=== PATIENT | female | born 1950 | race Caucasian/White ===

== ENCOUNTER 2017-08-16 12:51 | Outpatient (CLI) | payer MEDICARE, MEDICAID | END 2017-08-16 12:52 | disposition critical access hospital (66) | LOC: EMS 12:51 | PROVIDERS: ATTEND Surgery | DX: R06.02 Shortness of breath (principal); R53.1 Weakness | CPT/HCPCS: A0425; A0429 ==

== ENCOUNTER 2017-08-16 13:22 | Inpatient (IN) | payer MEDICARE, MEDICAID ==
[2017-08-16] MEDS ORDERED: DEXAMETHASONE 10 MG/ML VIAL IVP STA (13:54)
[2017-08-16] MEDS ORDERED: IPRATROPIUM/ALBUTEROL 3 ML NEB INH STA (13:54)
--- NOTE | 2017-08-16 13:58 | ED Physician Documentation ---
PD HPI DYSPNEA - Stated complaint Stated Complaint: SOA - Chief complaint Chief Complaint: Resp - History obtained from History obtained from: Patient, EMS - History of Present Illness Timing - onset: How many weeks ago (2-3) Timing - onset during: Rest Timing - duration: Weeks (2-3) Timing - details: Gradual onset, Still present Inciting event(s): URI, Exposure (ie smoke). No: Immobilization/travel Improved by: O2 Worsened by: Exertion, Laying flat, Coughing Associated symptoms: Cough, Wheezing Similar symptoms before: Diagnosis (SARS) Recently seen: Not recently seen - Additional information Additional information: 66-year-old previously well female has developed shortness of breath over the past 2-3 weeks. She states that she always has had some shortness of breath since her episode of stars in 2002. At that time she was sent home from the hospital on oxygen and has not seen a doctor since. Review of Systems Constitutional: denies: Fever Eyes: denies: Decreased vision Ears: denies: Ear pain Nose: denies: Rhinorrhea / runny nose, Congestion Throat: denies: Sore throat Cardiac: denies: Chest pain / pressure, Palpitations Respiratory: reports: Dyspnea, Cough GI: denies: Abdominal Pain, Nausea, Vomiting : denies: Dysuria, Frequency Skin: denies: Rash Musculoskeletal: denies: Neck pain PD PAST MEDICAL HISTORY - Past Medical History Past Medical History: Yes Respiratory: COPD, Pneumonia, Shortness of breath Neuro: Migraines, Tremors GI: Chronic diarrhea Psych: Anxiety, ADD/ADHD, Post traumatic stress disorder Other Past Medical History: neuromuscular disorder - Present Medications Home Medications: Ambulatory Orders Medication Instructions Recorded Confirmed No Known Home Medications [No 08/16/17 08/16/17 Known Home Medications] - Allergies Allergies/Adverse Reactions: Allergies Allergy/AdvReac Type Severity Reaction Status Date / Time Penicillins Allergy Unknown Verified 08/16/17 13:31 - Social History Does the pt smoke?: Yes Smoking Status: Current every day smoker PD ED PE NORMAL - Vitals Vital signs reviewed: Yes (tachypneic, hypertensive and hypoxic) - General General: Alert and oriented X 3, No acute distress, Well developed/nourished - HEENT HEENT: Atraumatic, PERRL, EOMI, Other (There is cerumen bilaterally ) - Neck Neck: Supple, no meningeal sign, No bony TTP - Cardiac Cardiac: RRR, No murmur - Respiratory Respiratory: No respiratory distress, Other (diminished breath sounds and scattered wheezes and rhonchi) - Abdomen Abdomen: Soft, Non tender - Back Back: No CVA TTP, No spinal TTP - Derm Derm: Normal color, Warm and dry, No rash - Extremities Extremities: No deformity, No edema - Neuro Neuro: No motor deficit, No sensory deficit Eye Opening: Spontaneous Motor: Obeys Commands Verbal: Oriented GCS Score: 15 - Psych Psych: Normal mood, Normal affect Results - Vitals Vitals: Vital Signs - 24 hr 08/16/17 08/16/17 13:24 14:10 Temperature 35.9 C L Heart Rate 91 88 Respiratory 26 H 21 Rate Blood Pressure 142/79 H O2 Saturation 85 L Oxygen O2 Source Nasal cannula Oxygen Flow Rate 6 - EKG (time done) 1328 Rate: Rate (enter#) (91) Rhythm: LAE Colo: LAD QRS: Poor R wave progression Ischemia: Normal ST segments Compare to prior EKG: Old EKG unavailable Computer interpretation: Agree with computer - Labs Labs: Laboratory Tests 08/16/17 08/16/17 08/16/17 13:56 13:56 13:56 WBC 17.0 H RBC 5.57 H Hgb 16.5 H Hct 49.9 H MCV 89.7 MCH 29.6 MCHC 33.0 RDW 14.1 Plt Count 331 MPV 7.4 L Neut # 14.9 H Lymph # 1.1 L Garfield # 0.9 Eos # 0.0 Baso # 0.1 Absolute Nucleated RBC 0.00 Nucleated RBC % 0.0 D-Dimer Sodium 135 Potassium 4.0 Chloride 97 L Carbon Dioxide 30 Anion Gap 8.0 BUN 20 Creatinine 1.0 Estimated GFR (MDRD) 55 L Glucose 119 H Calcium 8.5 Total Bilirubin 0.6 AST 19 ALT 16 Alkaline Phosphatase 105 Troponin I < 0.04 Total Protein 7.2 Albumin 3.5 Globulin 3.7 Albumin/Globulin Ratio 0.9 L Lipase 22 08/16/17 13:58 WBC RBC Hgb Hct MCV MCH MCHC RDW Plt Count MPV Neut # Lymph # Garfield # Eos # Baso # Absolute Nucleated RBC Nucleated RBC % D-Dimer 219.7 Sodium Potassium Chloride Carbon Dioxide Anion Gap BUN Creatinine Estimated GFR (MDRD) Glucose Calcium Total Bilirubin AST ALT Alkaline Phosphatase Troponin I Total Protein Albumin Globulin Albumin/Globulin Ratio Lipase - Rads (name of study) 2 veiw chest Radiology: Prelim report reviewed (Impression: Small right pleural effusion and adjoining lung opacification, may reflect atelectasis, edema, or pneumoina. ), EMP read indepedently, See rad report Procedures - IVC sono (time) 1350 Bedside IVC sono: IVC measures (cm) (2.34), IVC collapsed c insp (cm) (complete) , Dehydration (mild) PD MEDICAL DECISION MAKING - ED course Complexity details: reviewed results, re-evaluated patient, considered differential, d/w patient ED course: 66-year-old female with progressive exertional dyspnea presented to her physician's office today with oxygen saturation in the 70% range. She is transferred to the hospital with oxygen running and on arrival to the emergency department has diminished breath sounds and has some improvement with the DuoNeb treatment. She is found to have a right lower lobe infiltrate on chest x -ray. Departure - Departure Disposition: 66 [facility] DC/Xfer Clinical Impression: Pneumonia Qualifiers: Pneumonia type: due to unspecified organism Laterality: right Lung location: lower lobe of lung Qualified Code(s): J18.1 - Lobar pneumonia, unspecified organism Condition: Stable
[2017-08-16 14:00] LABS: BASOPHILS # (AUTO) 0.1 10^3/uL (0.0-0.1); BASOPHILS % (AUTO) 0.8 %; EOSINOPHILS % (AUTO) 0.1 %; HGB - HEMOGLOBIN 16.5 g/dL (12.0-16.0); LYMPHOCYTES # (AUTO) 1.1 10^3/uL (1.5-3.5); LYMPHOCYTES % (AUTO) 6.3 %; MEAN CORPUSCULAR HEMOGLOBIN 29.6 pg (27.0-31.0); MEAN CORPUSCULAR VOLUME 89.7 fL (81.0-99.0); MEAN PLATELET VOLUME 7.4 fL (7.9-10.8); MONOCYTES # (AUTO) 0.9 10^3/uL (0.0-1.0); MONOCYTES % (AUTO) 5.1 %; NEUTROPHILS # (AUTO) 14.9 10^3/uL (1.5-6.6); NEUTROPHILS % (AUTO) 87.7 %; PLT - PLATELET COUNT 331 10^3/uL (130-450); RED BLOOD COUNT 5.57 10^6/uL (4.20-5.40); RED CELL DISTRIBUTION WIDTH 14.1 % (12.0-15.0)
[2017-08-16 14:13] LABS: ALBUMIN 3.5 g/dL (3.2-5.5); ALBUMIN/GLOBULIN RATIO 0.9 (1.0-2.2); BILIRUBIN,TOTAL 0.6 mg/dL (0.2-1.0); CALCIUM 8.5 mg/dL (8.5-10.3); TOTAL PROTEIN 7.2 g/dL (6.7-8.2)
[2017-08-16] MEDS ORDERED: MAGNESIUM SULFATE 2 GRAM 2 GM/50 ML BAG IV ONE (14:26)
--- NOTE | 2017-08-16 15:38 | XRAY Preliminary Report ---
Exam: XR CHEST 2 VIEW X-RAY IMPRESSION: Small right pleural effusion and adjoining lung opacification, may reflect atelectasis, edema, or pne umonia. [facility] SITE ID: [id number]
--- NOTE | 2017-08-16 15:38 | XRAY Report ---
EXAM: CHEST RADIOGRAPHY EXAM DATE: 08/16/2017 02:57 PM. CLINICAL HISTORY: SOA. COMPARISON: None. TECHNIQUE: 2 views. FINDINGS: Lungs/Pleura: Dense opacification in the right lower lung with likely adjoining small pleural effusio n. No pneumothorax. Mediastinum: Heart and mediastinal contours are unremarkable. Other: None. IMPRESSION: Small right pleural effusion and adjoining lung opacification, may reflect atelectasis, edema, or pne umonia. [facility] Referring Provider Line: [phone] SITE ID: [id number]
[2017-08-16] MEDS ORDERED: cefTRIAXone 1 GM in SODIUM CHLORIDE 0.9% MINIBAG 100 ML IV STA (15:41)
[2017-08-16] MEDS ORDERED: AZITHROMYCIN INJ 500 MG in SODIUM CHLORIDE 0.9% 250 ML IV STA (15:41)
[2017-08-16] MEDS ORDERED: ALBUTEROL NEB 2.5 MG/3 ML INH STA (15:42)
[2017-08-16] MEDS ORDERED: TEMAZEPAM 15 MG CAPSULE PO PRN (18:03)
[2017-08-16] MEDS ORDERED: PROCHLORPERAZINE 10 MG/2 ML VIAL IVP PRN (18:03)
[2017-08-16] MEDS: BUTALB/ACETAM/CAFF 50/325/40MG TABLET PO PRN (20:33)
[2017-08-16] MEDS: IPRATROPIUM/ALBUTEROL 3 ML NEB INH PRN (20:54)
[2017-08-16] MEDS: methylPREDNISolone SUCCINATE 40 MG/ML VIAL IVP SCH (21:07)
[2017-08-16] MEDS: SODIUM CHLORIDE FLUSH 0.9% 10 ML SYRINGE IVP PRN (21:07)
[2017-08-16] MEDS ORDERED: LORazepam 2 MG/ML VIAL IVP PRN (23:34)
--- NOTE | 2017-08-17 00:45 | HISTORY & PHYSICAL EXAMINATION ---
DATE OF SERVICE: 08/16/2017 Physician: Shae Bustamante MD HISTORY OF PRESENT ILLNESS: This is a 66-year-old white female with a history of migraines, SARS treated in 2002 for which she required home oxygen and inhalers for a period of time and then was tapered off everything, and a history of PTSD and adult ADD for which she was on Adderall, which was also discontinued approximately 4-5 years ago. The patient is on no home medications. The patient reports that she was exposed to a friend 2 weeks ago who had a productive cough and since that time developed slowly progressive cough, shortness of breath, PND and orthopnea. No fever, chest pain, leg edema, palpitations or chest pain. She presented to her primary care doctor today with complaints of shortness of breath and was found to have oxygen saturations on room air of 70% and sent to the emergency room. In the ER, she was found to have significant tachypnea and wheezing and a right lower lobe infiltrate on chest x-ray and is being admitted for community-acquired pneumonia and respiratory distress. PAST MEDICAL HISTORY 1. Migraines. 2. SARS in 2002. 3. PTSD/adult ADD. MEDICATIONS AT HOME: None. ALLERGIES: PENICILLIN. FAMILY HISTORY: No inherited diseases. SOCIAL HISTORY: Smoker of 1/2-3/4 pack a day, rare alcohol use. No illicit drug use. The patient does state that her significant other, whom she lives with, smokes marijuana, and there is a lot of both tobacco smoke and marijuana smoke in the house. REVIEW OF SYSTEMS: She describes having a headache currently which is like the old migraines that she used to have. A comprehensive review of systems was performed and the pertinent positives are above, all other in review is negative. PHYSICAL EXAMINATION GENERAL: Obese white female. She is in mild respiratory distress during speaking. VITAL SIGNS: Blood pressure 141/90, heart rate 90 in sinus rhythm, afebrile. Oxygen saturation 88% on 6 L nasal cannula, improved to 92% later in the day on 5 L nasal cannula. HEENT: Reveals cyanosis of her lips, and she is wearing oxygen nasal cannula. Her oral mucosa is moist. NECK: No JVD or carotid bruits. CHEST: Clear, with a prolonged expiratory phase. No wheezes or rhonchi. HEART: Sounds are normal, distant. No audible murmur. ABDOMEN: Obese with positive bowel sounds. Nontender. EXTREMITIES: Show no clubbing, cyanosis or edema. NEUROLOGIC: Intact. LABORATORY DATA: Normal electrolytes, normal BUN and creatinine, normal liver tests. Troponin not detectable. BNP 167. White blood count 17 with a left shift, hemoglobin 16.5, platelet count normal at 331. INR was not done. D-dimer is negative at 219. CHEST X-RAY: Small right pleural effusion and right base opacification. ELECTROCARDIOGRAM: Sinus rhythm, left atrial enlargement, left anterior fascicular block, poor R-wave progression, no ST or T-wave changes. There is no old EKG available for comparison. IMPRESSION/DIAGNOSES 1. Community-acquired pneumonia, right lower lobe. 2. Respiratory distress with hypoxia and wheezing. 3. History of severe acute respiratory syndrome requiring supplemental oxygen and inhalers over 10 years ago. 4. Migraines. 5. Posttraumatic stress disorder history and adult attention deficit hyperactivity disorder, previously on Adderall but none for 4-5 years. PLAN: Admit the patient to inpatient status. Obtain a sputum culture and blood culture. Begin empiric antibiotics for community-acquired pneumonia using Zithromax and Rocephin. Begin nebulizers and steroids. Treat her headache with pain medication of her choice (Fiorinal). Obtain an Echocardiogram to evaluate LV and RV contractility and rule out systolic LV heart failure given the mildly elevated BNP and the complaints of orthopnea. Monitor the BNP. Recheck a CXR in am. DEEP VENOUS THROMBOSIS PROPHYLAXIS: Lovenox. CODE STATUS: FULL CODE. ATTESTATION: The patient is expected to be discharged or transferred to another facility within 96 hours: Yes. TD: 08/16/2017 19:50 [facility]
[2017-08-17] MEDS: SODIUM CHLORIDE FLUSH 0.9% 10 ML SYRINGE IVP SCH ×3 (01:23→15:37)
[2017-08-17] MEDS: BUTALB/ACETAM/CAFF 50/325/40MG TABLET PO PRN ×4 (02:18→13:53)
[2017-08-17] MEDS: SODIUM CHLORIDE FLUSH 0.9% 10 ML SYRINGE IVP PRN (06:13)
[2017-08-17 06:14] LABS: CALCIUM 8.4 mg/dL (8.5-10.3); CREATININE 0.8 mg/dL (0.4-1.0)
[2017-08-17] MEDS: methylPREDNISolone SUCCINATE 40 MG/ML VIAL IVP SCH ×3 (06:14→21:20)
[2017-08-17 06:20] LABS: BASOPHILS # (AUTO) 0.1 10^3/uL (0.0-0.1); BASOPHILS % (AUTO) 0.4 %; HGB - HEMOGLOBIN 15.4 g/dL (12.0-16.0); LYMPHOCYTES # (AUTO) 0.9 10^3/uL (1.5-3.5); LYMPHOCYTES % (AUTO) 5.7 %; MEAN CORPUSCULAR HEMOGLOBIN 29.2 pg (27.0-31.0); MEAN CORPUSCULAR HGB CONC 32.1 g/dL (32.0-36.0); MEAN CORPUSCULAR VOLUME 90.9 fL (81.0-99.0); MEAN PLATELET VOLUME 7.7 fL (7.9-10.8); MONOCYTES # (AUTO) 0.4 10^3/uL (0.0-1.0); MONOCYTES % (AUTO) 2.6 %; NEUTROPHILS # (AUTO) 15.1 10^3/uL (1.5-6.6); NEUTROPHILS % (AUTO) 91.3 %; PLT - PLATELET COUNT 338 10^3/uL (130-450); RED BLOOD COUNT 5.29 10^6/uL (4.20-5.40); RED CELL DISTRIBUTION WIDTH 14.5 % (12.0-15.0); WHITE BLOOD COUNT 16.5 x10^3/uL (4.8-10.8)
--- NOTE | 2017-08-17 07:11 | XRAY Report ---
EXAM: CHEST RADIOGRAPHY EXAM DATE: 08/17/2017 06:27 AM. CLINICAL HISTORY: F/U pneumonia. COMPARISON: 08/16/2017. TECHNIQUE: 1 view. FINDINGS: Lungs/Pleura: Mild vascular congestion. Progression of right lung airspace opacities. Dense right bas ilar opacity without significant change. There is a right pleural effusion. No pneumothorax. Mediastinum: Cardiomegaly. Mild aortic tortuosity. Other: None. IMPRESSION: 1. Progression of vascular congestion 2. Progression of right lung airspace opacities with dense right basilar opacity without significant change. [facility] Referring Provider Line: [phone] SITE ID: [id number]
--- NOTE | 2017-08-17 07:11 | XRAY Preliminary Report ---
Exam: XR CHEST 1 VIEW X-RAY IMPRESSION: 1. Progression of vascular congestion 2. Progression of right lung airspace opacities with dense right basilar opacity without significant change. [facility] SITE ID: [id number]
[2017-08-17] MEDS: ACETAMINOPHEN 325 MG TABLET PO PRN (09:07)
[2017-08-17] MEDS: ENOXAPARIN 40 MG/0.4 ML SYRINGE SUBQ SCH (09:08)
[2017-08-17] MEDS: FAMOTIDINE 20 MG TABLET PO SCH (09:08)
[2017-08-17] MEDS: POLYETHYLENE GLYCOL 3350 17 GM PACKET PO SCH (09:09)
[2017-08-17] MEDS: FUROSEMIDE 20 MG/2 ML VIAL IVP SCH ×2 (09:17→13:50)
[2017-08-17] MEDS: cefTRIAXone 1 GM in SODIUM CHLORIDE 0.9% MINIBAG 100 ML IV SCH (13:14)
[2017-08-17] MEDS: AZITHROMYCIN INJ 500 MG in SODIUM CHLORIDE 0.9% 250 ML IV SCH (13:50)
--- NOTE | 2017-08-17 15:55 | PROVIDER PROGRESS NOTE ---
Assessment/Plan - Problem List (1) CAP (community acquired pneumonia) Qualifiers: Laterality: right Lung location: lower lobe of lung Qualified Code(s): J18.1 - Lobar pneumonia, unspecified organism Assessment/Plan: No sputum was collected yet. Blood cultures neg to date. Continue empiric antibiotics for CAP. (2) Tobacco use Assessment/Plan: Pt not asking for a cigarette and not on a nicotine patch. She has said that she can smoke as little as 3 cigs/day. Continue to offer support and smoking cessation advised by me. (3) COPD (chronic obstructive pulmonary disease) Assessment/Plan: Pt clinically looks like a COPDer (tripod breathing, increased AP diameter, had scattered wheezes at presentation and prolonged expiratory phase). The Echo shows signs of early R heart overload with mild RA and RV enlargement an mildly elevated PA pressure of 37 mmHg. Continue nebs and treat underlying pneumonia. (4) Orthopnea Assessment/Plan: Pt has R/O for FL. Her EKG is similar yo previous. BNP was elevated and today's CXR is read as more vascular congestion. The Echo shows normal LVEF, diastolic dysfunction is present. Will add iv diuretic. Monitor BMP and Mg. (5) PTSD (post-traumatic stress disorder) Assessment/Plan: The Pt voiced needing to be taken care of by Psychiatry, wanting meds for ADHD and PTSD and is planning on seeing someone locally after [facility]Ch. - Current Meds Current Meds: Current Medications Generic Name Dose Route Start Last Admin Trade Name Freq PRN Reason Stop Dose Admin Acetaminophen 650 mg 08/16/17 18:03 08/17/17 09:07 Tylenol PO 650 mg Q4HR PRN Administration Pain or Fever > 38C (100.4F) Acetaminophen/Butalbital/Caffeine 2 tab 08/17/17 13:09 08/17/17 13:53 Fioricet PO 2 tab Q4HR PRN Administration HEADACHE Albuterol/Ipratropium 3 ml 08/16/17 18:10 08/16/17 20:54 Duoneb INH 3 ml Q4HR PRN Administration Wheezing Enoxaparin Sodium 40 mg 08/17/17 09:00 08/17/17 09:08 Lovenox SUBQ 40 mg DAILY RONNY Administration Famotidine 20 mg 08/17/17 09:00 08/17/17 09:08 Pepcid PO 20 mg DAILY RONNY Administration Furosemide 20 mg 08/17/17 08:00 08/17/17 13:50 Lasix Inj 20mg Vial IVP 20 mg BIDDIURETIC RONNY Administration Azithromycin 500 mg/ Sodium 250 mls @ 250 mls/hr 08/17/17 13:00 08/17/17 15: 51 Chloride IV Infused Q24H RONNY Infusion Ceftriaxone Sodium 1 gm/ 100 mls @ 200 mls/hr 08/17/17 13:00 08/17/17 15:51 Sodium Chloride IV Infused Q24H RONNY Infusion Methylprednisolone 40 mg 08/16/17 22:00 08/17/17 13:50 Solu-Medrol (40mg Vial) IVP 08/19/17 21:59 40 mg TID RONNY Administration Polyethylene Glycol 17 gm 08/17/17 09:00 08/17/17 09:09 Miralax PO 17 gm DAILY RONNY Administration Sodium Chloride 10 ml 08/16/17 18:03 08/17/17 06:13 Normal Saline Flush 0.9% IVP 10 ml PRN PRN Administration NEEDED PER PROVIDER ORDERS Sodium Chloride 10 ml 08/17/17 01:00 08/17/17 15:37 Normal Saline Flush 0.9% IVP 10 ml 0100,0900,1700 RONNY Administration - Lab Result Fish Bone Diagrams: 08/17/17 05:27 08/17/17 05:27 - EKG Results EKG Interpreted Independently: Yes EKG Comparison: Other (LAFB absent now, otherwise same as yesterday's EKG.) - Additional Planning My Orders: My Active Orders 08/16/17 18:03 Activity Orders [RC] Routine IO [RC] IOSHIFT IV Insert [RC] .ONCE Initiate Bowel Care Protocol [RC] .protocol Initiate Flu Vaccine Screening [RC] ONCE Initiate Line Care Protocol [RC] .protocol Initiate Personal Care Protoco [RC] .protocol Initiate Pneumonia Vaccine Scr [RC] ONCE Oxygen Therapy [RC] .PRN Telemetry (24 Hour) [RC] Q4HR Vital Signs [RC] Q4HR Acetaminophen [Tylenol] 650 mg PO Q4HR PRN Morphine Inj [Morphine] 2 mg IVP Q2H PRN Prochlorperazine Inj [Compazine Inj] 10 mg IVP Q6HR PRN Sodium Chloride Flush 0.9% [Normal Saline Flush 0.9%] 10 ml IVP PRN PRN Temazepam [Restoril] 15 mg PO QPM PRN Code Status [OTHERS] Routine Condition of Patient [OTHERS] Routine DVT Prophylaxis [OTHERS] Routine 08/16/17 18:10 Ipratropium/Albuterol [Duoneb] 3 ml INH Q4HR PRN 08/16/17 18:34 RT [Nebulizer/MDI Tx.] [RC] .Q4 PRN 08/16/17 18:46 CULTURE, BLOOD #1 [RM] Stat 08/16/17 18:53 CULTURE, BLOOD #2 [RM] Stat 08/16/17 22:00 methylPREDNISolone SUCCINATE [SOLU-Medrol (40MG VIAL)] 40 mg IVP TID 08/17/17 01:00 Sodium Chloride Flush 0.9% [Normal Saline Flush 0.9%] 10 ml IVP 0100,0900, 1700 08/17/17 08:00 Echo Transthoracic Complete [ECHO] Routine FUROSEMIDE INJ 20mg VIAL [LASIX INJ 20mg VIAL] 20 mg IVP BIDDIURETIC 08/17/17 09:00 Enoxaparin [Lovenox] 40 mg SUBQ DAILY Famotidine [Pepcid] 20 mg PO DAILY Polyethylene Glycol 3350 [Miralax] 17 gm PO DAILY 08/17/17 13:00 Azithromycin Inj [Zithromax Inj] 500 mg Sodium Chloride 0.9% [Normal Saline 0.9%] 250 ml IV Q24H cefTRIAXone [Rocephin] 1 gm Sodium Chloride 0.9% Minibag [Normal Saline 0.9% Minibag] 100 ml IV Q24H 08/17/17 13:09 Butalb/Acetam/Caff 50/325/40 [Fioricet] 2 tab PO Q4HR PRN 08/17/17 Breakfast Regular Diet [DIET] 08/18/17 05:00 BMP - BASIC METABOLIC PANEL [CHEM] DAILYLAB CBC - COMP BLD CT W/AUTO DIFF [HEME] DAILYLAB 08/19/17 05:00 BMP - BASIC METABOLIC PANEL [CHEM] DAILYLAB CBC - COMP BLD CT W/AUTO DIFF [HEME] DAILYLAB Subjective - Subjective Patient Reports: Feeling Better Nursing Reports: Other (Less cough. Still on O2 my oximizer) Objective Vital Signs: Vital Signs - 24 hr 08/16/17 08/16/17 08/16/17 18:56 20:40 20:55 Temperature 36.6 C Heart Rate 90 Heart Rate [ 91 Apical] Heart Rate [ Brachial] Respiratory 22 12 Rate Blood Pressure [Left Radial artery] Blood Pressure 141/92 H [Right Brachial artery] O2 Saturation 92 87 L 08/16/17 08/17/17 08/17/17 22:25 00:46 04:36 Temperature 36.6 C 36.9 C Heart Rate Heart Rate [ 77 Apical] Heart Rate [ 88 Brachial] Respiratory 20 16 Rate Blood Pressure [Left Radial artery] Blood Pressure 144/80 H 130/84 H [Right Brachial artery] O2 Saturation 92 94 93 08/17/17 08/17/17 08:00 12:41 Temperature 36.8 C 36.9 C Heart Rate Heart Rate [ Apical] Heart Rate [ 77 80 Brachial] Respiratory 16 16 Rate Blood Pressure 127/64 122/79 [Left Radial artery] Blood Pressure [Right Brachial artery] O2 Saturation 94 94 Oxygen O2 Source Oxymizer I&O (Last 24 Hrs): Intake and Output Totals x24h 08/15/17 08/16/17 08/17/17 23:59 23:59 23:59 Intake Total 300 920 Balance 300 920 General: Alert, Oriented x3 HEENT: Mucous membr. moist/pink Neck: Supple, No JVD Cardiovascular: Regular rate, No murmurs Respiratory: No respiratory distress, Breath sounds nml Abdomen: Other (Obese with pannus) - Results Results: Laboratory Results WBC 16.5 x10^3/uL (4.8-10.8) H 08/17/17 05:27 RBC 5.29 10^6/uL (4.20-5.40) 08/17/17 05:27 Hgb 15.4 g/dL (12.0-16.0) 08/17/17 05:27 Hct 48.1 % (37.0-47.0) H 08/17/17 05:27 MCV 90.9 fL (81.0-99.0) 08/17/17 05:27 MCH 29.2 pg (27.0-31.0) 08/17/17 05:27 MCHC 32.1 g/dL (32.0-36.0) 08/17/17 05:27 RDW 14.5 % (12.0-15.0) 08/17/17 05:27 Plt Count 338 10^3/uL (130-450) 08/17/17 05:27 MPV 7.7 fL (7.9-10.8) L 08/17/17 05:27 Neut # 15.1 10^3/uL (1.5-6.6) H 08/17/17 05:27 Lymph # 0.9 10^3/uL (1.5-3.5) L 08/17/17 05:27 Rabun # 0.4 10^3/uL (0.0-1.0) 08/17/17 05:27 Eos # 0.0 10^3/uL (0.0-0.7) 08/17/17 05:27 Baso # 0.1 10^3/uL (0.0-0.1) 08/17/17 05:27 Absolute Nucleated RBC 0.02 x10^3/uL 08/17/17 05:27 Nucleated RBC % 0.1 /100WBC 08/17/17 05:27 D-Dimer 219.7 ng/mL (200.0-255.0) 08/16/17 13:58 Sodium 135 mmol/L (135-145) 08/17/17 05:27 Potassium 4.2 mmol/L (3.5-5.0) 08/17/17 05:27 Chloride 97 mmol/L (101-111) L 08/17/17 05:27 Carbon Dioxide 29 mmol/L (21-32) 08/17/17 05:27 Anion Gap 9.0 (6-13) 08/17/17 05:27 BUN 22 mg/dL (6-20) H 08/17/17 05:27 Creatinine 0.8 mg/dL (0.4-1.0) 08/17/17 05:27 Estimated GFR (MDRD) 72 (>89) L 08/17/17 05:27 Glucose 165 mg/dL (70-100) H 08/17/17 05:27 Calcium 8.4 mg/dL (8.5-10.3) L 08/17/17 05:27 Total Bilirubin 0.6 mg/dL (0.2-1.0) 08/16/17 13:56 AST 19 IU/L (10-42) 08/16/17 13:56 ALT 16 IU/L (10-60) 08/16/17 13:56 Alkaline Phosphatase 105 IU/L (42-121) 08/16/17 13:56 Troponin I < 0.04 ng/mL (<0.49) 08/16/17 20:09 B-Natriuretic Peptide 140 pg/mL (5-100) H 08/16/17 23:46 Total Protein 7.2 g/dL (6.7-8.2) 08/16/17 13:56 Albumin 3.5 g/dL (3.2-5.5) 08/16/17 13:56 Globulin 3.7 g/dL (2.1-4.2) 08/16/17 13:56 Albumin/Globulin Ratio 0.9 (1.0-2.2) L 08/16/17 13:56 Lipase 22 U/L (22-51) 08/16/17 13:56
[2017-08-18] MEDS: BUTALB/ACETAM/CAFF 50/325/40MG TABLET PO PRN ×3 (00:08→20:36)
[2017-08-18] MEDS: SODIUM CHLORIDE FLUSH 0.9% 10 ML SYRINGE IVP SCH ×3 (00:08→17:17)
[2017-08-18] MEDS: methylPREDNISolone SUCCINATE 40 MG/ML VIAL IVP SCH ×3 (05:40→22:46)
[2017-08-18] MEDS: FUROSEMIDE 20 MG/2 ML VIAL IVP SCH (05:40)
[2017-08-18] MEDS: SODIUM CHLORIDE FLUSH 0.9% 10 ML SYRINGE IVP PRN ×2 (05:41→22:46)
[2017-08-18 06:22] LABS: BASOPHILS % (AUTO) 0.3 %; HGB - HEMOGLOBIN 14.7 g/dL (12.0-16.0); LYMPHOCYTES % (AUTO) 5.5 %; MEAN CORPUSCULAR HEMOGLOBIN 28.6 pg (27.0-31.0); MEAN CORPUSCULAR HGB CONC 31.7 g/dL (32.0-36.0); MEAN CORPUSCULAR VOLUME 90.2 fL (81.0-99.0); MEAN PLATELET VOLUME 7.8 fL (7.9-10.8); MONOCYTES # (AUTO) 0.7 10^3/uL (0.0-1.0); NEUTROPHILS # (AUTO) 15.8 10^3/uL (1.5-6.6); NEUTROPHILS % (AUTO) 90.2 %; PLT - PLATELET COUNT 349 10^3/uL (130-450); RED BLOOD COUNT 5.15 10^6/uL (4.20-5.40); RED CELL DISTRIBUTION WIDTH 14.5 % (12.0-15.0); WHITE BLOOD COUNT 17.5 x10^3/uL (4.8-10.8)
[2017-08-18 06:23] LABS: CALCIUM 8.1 mg/dL (8.5-10.3); CREATININE 0.8 mg/dL (0.4-1.0)
[2017-08-18 07:56] LABS: ABG PCO2 46 mmHg (34-45); ABG PH 7.41 (7.35-7.45); ABG PO2 98 mmHg (80-100)
[2017-08-18 07:57] LABS: ABG BASE EXCESS 3.5 mmol/L (-2.0-3.0); ABG OXYGEN SATURATION 98 % (94-98); ABG TCO2 30.4 MMOL/L (21.0-29.0); ALLEN TEST POSITIVE
[2017-08-18] MEDS: IPRATROPIUM/ALBUTEROL 3 ML NEB INH PRN (09:24)
[2017-08-18] MEDS: POLYETHYLENE GLYCOL 3350 17 GM PACKET PO SCH (10:16)
[2017-08-18] MEDS: FAMOTIDINE 20 MG TABLET PO SCH (10:24)
[2017-08-18] MEDS: ENOXAPARIN 40 MG/0.4 ML SYRINGE SUBQ SCH (10:30)
--- NOTE | 2017-08-18 13:27 | PROVIDER PROGRESS NOTE ---
Assessment/Plan - Problem List (1) CAP (community acquired pneumonia) Qualifiers: Laterality: right Lung location: lower lobe of lung Qualified Code(s): J18.1 - Lobar pneumonia, unspecified organism Assessment/Plan: Continue empiric antibiotics Retry to send a sputum sample. Start Mucinex prn for pulmonary toilet. (2) Tobacco use Assessment/Plan: No urges while here. (3) COPD (chronic obstructive pulmonary disease) Qualifiers: COPD type: COPD with acute exacerbation Qualified Code(s): J44.1 - Chronic obstructive pulmonary disease with (acute) exacerbation Assessment/Plan: Pt getting nebulizer. Will add a course of steroids (5) PTSD (post-traumatic stress disorder) Assessment/Plan: Pt talks about this daily with me. She planning to see the Psychiatrist in town. - Current Meds Current Meds: Current Medications Generic Name Dose Route Start Last Admin Trade Name Freq PRN Reason Stop Dose Admin Acetaminophen 650 mg 08/16/17 18:03 08/17/17 09:07 Tylenol PO 650 mg Q4HR PRN Administration Pain or Fever > 38C (100.4F) Acetaminophen/Butalbital/Caffeine 2 tab 08/17/17 13:09 08/18/17 10:23 Fioricet PO 2 tab Q4HR PRN Administration HEADACHE Albuterol/Ipratropium 3 ml 08/16/17 18:10 08/18/17 09:24 Duoneb INH 3 ml Q4HR PRN Administration Wheezing Enoxaparin Sodium 40 mg 08/17/17 09:00 08/18/17 10:30 Lovenox SUBQ 40 mg DAILY RONNY Administration Famotidine 20 mg 08/17/17 09:00 08/18/17 10:24 Pepcid PO 20 mg DAILY RONNY Administration Furosemide 20 mg 08/17/17 08:00 08/18/17 05:40 Lasix Inj 20mg Vial IVP 20 mg BIDDIURETIC RONNY Administration Azithromycin 500 mg/ Sodium 250 mls @ 250 mls/hr 08/17/17 13:00 08/17/17 15: 51 Chloride IV Infused Q24H RONNY Infusion Ceftriaxone Sodium 1 gm/ 100 mls @ 200 mls/hr 08/17/17 13:00 08/17/17 15:51 Sodium Chloride IV Infused Q24H RONNY Infusion Methylprednisolone 40 mg 08/16/17 22:00 08/18/17 05:40 Solu-Medrol (40mg Vial) IVP 08/19/17 21:59 40 mg TID RONNY Administration Polyethylene Glycol 17 gm 08/17/17 09:00 08/18/17 10:16 Miralax PO Not Given DAILY RONNY Sodium Chloride 10 ml 08/16/17 18:03 08/18/17 05:41 Normal Saline Flush 0.9% IVP 10 ml PRN PRN Administration NEEDED PER PROVIDER ORDERS Sodium Chloride 10 ml 08/17/17 01:00 08/18/17 10:26 Normal Saline Flush 0.9% IVP 10 ml 0100,0900,1700 RONNY Administration - Lab Result Fish Bone Diagrams: 08/18/17 05:45 08/18/17 05:45 - Additional Planning My Orders: My Active Orders 08/17/17 13:00 Azithromycin Inj [Zithromax Inj] 500 mg Sodium Chloride 0.9% [Normal Saline 0.9%] 250 ml IV Q24H [id number] [Rocephin] 1 gm Sodium Chloride 0.9% Minibag [Normal Saline 0.9% Minibag] 100 ml IV Q24H 08/17/17 13:09 Butalb/Acetam/Caff 50/325/40 [Fioricet] 2 tab PO Q4HR PRN 08/18/17 CUL, RESPIRATORY [RM] Urgent 08/19/17 05:00 BMP - BASIC METABOLIC PANEL [CHEM] DAILYLAB CBC - COMP BLD CT W/AUTO DIFF [HEME] DAILYLAB Subjective - Subjective Patient Reports: Feeling Better, Other (Very SOB but could remove oxygen to wash up in [place]) Nursing Reports: Other (Pt on 10L n.c.) Objective Vital Signs: Vital Signs - 24 hr 08/17/17 08/17/17 08/18/17 17:00 20:53 00:13 Temperature 36.4 C L 36.8 C 36.6 C Heart Rate Heart Rate [ 84 78 76 Brachial] Respiratory 18 18 16 Rate Blood Pressure 149/76 H 130/65 133/74 H [Left Radial artery] Blood Pressure [Right Brachial artery] O2 Saturation 94 95 93 08/18/17 08/18/17 08/18/17 04:07 08:39 09:25 Temperature 36.3 C L 36.6 C Heart Rate 74 Heart Rate [ 72 66 Brachial] Respiratory 18 18 16 Rate Blood Pressure 130/84 H 131/78 H [Left Radial artery] Blood Pressure [Right Brachial artery] O2 Saturation 94 94 08/18/17 13:00 Temperature 36.8 C Heart Rate Heart Rate [ 74 Brachial] Respiratory 18 Rate Blood Pressure [Left Radial artery] Blood Pressure 129/68 [Right Brachial artery] O2 Saturation 95 Oxygen O2 Source Oxymask I&O (Last 24 Hrs): Intake and Output Totals x24h 08/16/17 08/17/17 08/18/17 23:59 23:59 23:59 Intake Total 300 1480 1100 Balance 300 1480 1100 General: Alert, Oriented x3 HEENT: Mucous membr. moist/pink, Other (On oximizer nasally) Neck: Supple, No JVD Neuro: Non Focal Cardiovascular: Regular rate, No murmurs Respiratory: Other (R side tight and diminished, L is clear) Abdomen: Soft, Other (Obese with pannus) Extremities: No edema - Results Results: Laboratory Results WBC 17.5 x10^3/uL (4.8-10.8) H 08/18/17 05:45 RBC 5.15 10^6/uL (4.20-5.40) 08/18/17 05:45 Hgb 14.7 g/dL (12.0-16.0) 08/18/17 05:45 Hct 46.4 % (37.0-47.0) 08/18/17 05:45 MCV 90.2 fL (81.0-99.0) 08/18/17 05:45 MCH 28.6 pg (27.0-31.0) 08/18/17 05:45 MCHC 31.7 g/dL (32.0-36.0) L 08/18/17 05:45 RDW 14.5 % (12.0-15.0) 08/18/17 05:45 Plt Count 349 10^3/uL (130-450) 08/18/17 05:45 MPV 7.8 fL (7.9-10.8) L 08/18/17 05:45 Neut # 15.8 10^3/uL (1.5-6.6) H 08/18/17 05:45 Lymph # 1.0 10^3/uL (1.5-3.5) L 08/18/17 05:45 [place] # 0.7 10^3/uL (0.0-1.0) 08/18/17 05:45 Eos # 0.0 10^3/uL (0.0-0.7) 08/18/17 05:45 Baso # 0.0 10^3/uL (0.0-0.1) 08/18/17 05:45 Absolute Nucleated RBC 0.01 x10^3/uL 08/18/17 05:45 Nucleated RBC % 0.0 /100WBC 08/18/17 05:45 D-Dimer 219.7 ng/mL (200.0-255.0) 08/16/17 13:58 Bld Gas Analysis Time 07:48 08/18/17 07:48 Sample Site RIGHT RADIAL 08/18/17 07:48 ABG pH 7.41 (7.35-7.45) 08/18/17 07:48 ABG pCO2 46 mmHg (34-45) H 08/18/17 07:48 ABG pO2 98 mmHg (80-100) 08/18/17 07:48 ABG HCO3 29.0 mmol/L (22.0-26.0) H 08/18/17 07:48 ABG Total CO2 30.4 MMOL/L (21.0-29.0) H 08/18/17 07:48 ABG O2 Saturation 98 % (94-98) 08/18/17 07:48 ABG Base Excess 3.5 mmol/L (-2.0-3.0) H 08/18/17 07:48 Rickey Test POSITIVE 08/18/17 07:48 O2 Delivery Device OXYMIZER 08/18/17 07:48 O2 Liters/Min 10.00 LPM 08/18/17 07:48 Sodium 135 mmol/L (135-145) 08/18/17 05:45 Potassium 4.3 mmol/L (3.5-5.0) 08/18/17 05:45 Chloride 96 mmol/L (101-111) L 08/18/17 05:45 Carbon Dioxide 30 mmol/L (21-32) 08/18/17 05:45 Anion Gap 9.0 (6-13) 08/18/17 05:45 BUN 33 mg/dL (6-20) H 08/18/17 05:45 Creatinine 0.8 mg/dL (0.4-1.0) 08/18/17 05:45 Estimated GFR (MDRD) 72 (>89) L 08/18/17 05:45 Glucose 143 mg/dL (70-100) H 08/18/17 05:45 Calcium 8.1 mg/dL (8.5-10.3) L 08/18/17 05:45 Total Bilirubin 0.6 mg/dL (0.2-1.0) 08/16/17 13:56 AST 19 IU/L (10-42) 08/16/17 13:56 ALT 16 IU/L (10-60) 08/16/17 13:56 Alkaline Phosphatase 105 IU/L (42-121) 08/16/17 13:56 Troponin I < 0.04 ng/mL (<0.49) 08/16/17 20:09 B-Natriuretic Peptide 140 pg/mL (5-100) H 08/16/17 23:46 Total Protein 7.2 g/dL (6.7-8.2) 08/16/17 13:56 Albumin 3.5 g/dL (3.2-5.5) 08/16/17 13:56 Globulin 3.7 g/dL (2.1-4.2) 08/16/17 13:56 Albumin/Globulin Ratio 0.9 (1.0-2.2) L 08/16/17 13:56 Lipase 22 U/L (22-51) 08/16/17 13:56 ABX Reporting Has patient been on IV antibiotics over the past 48 hours?: Yes
[2017-08-18] MEDS: cefTRIAXone 1 GM in SODIUM CHLORIDE 0.9% MINIBAG 100 ML IV SCH (13:28)
[2017-08-18] MEDS: AZITHROMYCIN INJ 500 MG in SODIUM CHLORIDE 0.9% 250 ML IV SCH (14:09)
[2017-08-18] MEDS: guaiFENesin 600 MG TABLET PO SCH ×2 (17:17→22:46)
[2017-08-18] MEDS: ACETAMINOPHEN 325 MG TABLET PO PRN (22:46)
[2017-08-19] MEDS: SODIUM CHLORIDE FLUSH 0.9% 10 ML SYRINGE IVP SCH ×3 (03:09→21:15)
[2017-08-19] MEDS: MORPHINE 2 MG/ML SYRINGE IVP PRN (03:12)
[2017-08-19] MEDS: SODIUM CHLORIDE FLUSH 0.9% 10 ML SYRINGE IVP PRN ×3 (03:13→14:21)
[2017-08-19 05:56] LABS: BASOPHILS % (AUTO) 0.2 %; HGB - HEMOGLOBIN 14.9 g/dL (12.0-16.0); LYMPHOCYTES # (AUTO) 0.8 10^3/uL (1.5-3.5); LYMPHOCYTES % (AUTO) 5.4 %; MEAN CORPUSCULAR HEMOGLOBIN 29.2 pg (27.0-31.0); MEAN CORPUSCULAR HGB CONC 32.1 g/dL (32.0-36.0); MEAN CORPUSCULAR VOLUME 90.9 fL (81.0-99.0); MEAN PLATELET VOLUME 7.4 fL (7.9-10.8); MONOCYTES # (AUTO) 0.6 10^3/uL (0.0-1.0); MONOCYTES % (AUTO) 4.1 %; NEUTROPHILS % (AUTO) 90.3 %; PLT - PLATELET COUNT 328 10^3/uL (130-450); RED BLOOD COUNT 5.11 10^6/uL (4.20-5.40); RED CELL DISTRIBUTION WIDTH 14.5 % (12.0-15.0); WHITE BLOOD COUNT 14.4 x10^3/uL (4.8-10.8)
[2017-08-19 06:06] LABS: CREATININE 0.9 mg/dL (0.4-1.0)
[2017-08-19] MEDS: methylPREDNISolone SUCCINATE 40 MG/ML VIAL IVP SCH ×2 (06:36→14:21)
[2017-08-19] MEDS: POLYETHYLENE GLYCOL 3350 17 GM PACKET PO SCH (07:56)
[2017-08-19] MEDS: ENOXAPARIN 40 MG/0.4 ML SYRINGE SUBQ SCH (08:59)
[2017-08-19] MEDS: guaiFENesin 600 MG TABLET PO SCH ×2 (09:00→20:28)
[2017-08-19] MEDS: FUROSEMIDE 20 MG TABLET PO SCH (09:00)
[2017-08-19] MEDS: FAMOTIDINE 20 MG TABLET PO SCH (09:00)
[2017-08-19] MEDS: AZITHROMYCIN INJ 500 MG in SODIUM CHLORIDE 0.9% 250 ML IV SCH (12:06)
--- NOTE | 2017-08-19 12:46 | PROVIDER PROGRESS NOTE ---
Assessment/Plan - Problem List (1) CAP (community acquired pneumonia) Qualifiers: Laterality: right Lung location: lower lobe of lung Qualified Code(s): J18.1 - Lobar pneumonia, unspecified organism Assessment/Plan: Continue antibiotics. No sputum was ever obtained, despite producing sputum. (2) COPD (chronic obstructive pulmonary disease) Qualifiers: COPD type: COPD with acute exacerbation Qualified Code(s): J44.1 - Chronic obstructive pulmonary disease with (acute) exacerbation Assessment/Plan: Pt is still very SOB off oxygen, needing 8L by oximizer. Will add Incentive Spirometry and Acapella device for pulmonary toliet (3) Chronic diastolic heart failure Assessment/Plan: Continue daily Lasix po. Follow daily weight. Follow electrolytes, BUN/creat and Mg (4) Migraine Assessment/Plan: No further complaints since admission and received Fioricet (5) PTSD (post-traumatic stress disorder) Assessment/Plan: Stable (6) Tobacco use Assessment/Plan: Cessation advised - Current Meds Current Meds: Current Medications Generic Name Dose Route Start Last Admin Trade Name Freq PRN Reason Stop Dose Admin Acetaminophen 650 mg 08/16/17 18:03 08/18/17 22:46 Tylenol PO 650 mg Q4HR PRN Administration Pain or Fever > 38C (100.4F) Acetaminophen/Butalbital/Caffeine 2 tab 08/17/17 13:09 08/18/17 20:36 Fioricet PO 2 tab Q4HR PRN Administration HEADACHE Albuterol/Ipratropium 3 ml 08/16/17 18:10 08/18/17 09:24 Duoneb INH 3 ml Q4HR PRN Administration Wheezing Enoxaparin Sodium 40 mg 08/17/17 09:00 08/19/17 08:59 Lovenox SUBQ 40 mg DAILY RONNY Administration Famotidine 20 mg 08/17/17 09:00 08/19/17 09:00 Pepcid PO 20 mg DAILY RONNY Administration Furosemide 20 mg 08/19/17 09:00 08/19/17 09:00 Lasix PO 20 mg DAILY RONNY Administration Guaifenesin 600 mg 08/18/17 14:00 08/19/17 09:00 Mucinex PO 600 mg BID RONNY Administration Azithromycin 500 mg/ Sodium 250 mls @ 250 mls/hr 08/17/17 13:00 08/19/17 12: 06 Chloride IV 250 mls/hr Q24H RONNY Administration Ceftriaxone Sodium 1 gm/ 100 mls @ 200 mls/hr 08/17/17 13:00 08/18/17 14:17 Sodium Chloride IV Infused Q24H RONNY Infusion Methylprednisolone 40 mg 08/16/17 22:00 08/19/17 06:36 Solu-Medrol (40mg Vial) IVP 08/19/17 21:59 40 mg TID RONNY Administration Morphine Sulfate 2 mg 08/16/17 18:03 08/19/17 03:12 Morphine IVP 2 mg Q2H PRN Administration Dyspnea Polyethylene Glycol 17 gm 08/17/17 09:00 08/19/17 07:56 Miralax PO Not Given DAILY RONNY Sodium Chloride 10 ml 08/16/17 18:03 08/19/17 06:40 Normal Saline Flush 0.9% IVP 10 ml PRN PRN Administration NEEDED PER PROVIDER ORDERS Sodium Chloride 10 ml 08/17/17 01:00 08/19/17 09:00 Normal Saline Flush 0.9% IVP 10 ml 0100,0900,1700 RONNY Administration - Lab Result Fish Bone Diagrams: 08/19/17 05:48 08/19/17 05:48 - Additional Planning My Orders: My Active Orders 08/18/17 14:00 [email or web address] [Mucinex] 600 mg PO BID 08/19/17 08:23 Acapella [Acapella (Flutter Valve Device] [RC] TID Incentive Spirometry - RT [RC] TID 08/19/17 09:00 Furosemide [Lasix] 20 mg PO DAILY Subjective - Subjective Patient Reports: Feeling Better Objective Vital Signs: Vital Signs - 24 hr 08/18/17 08/18/17 08/18/17 13:00 16:21 20:05 Temperature 36.8 C 36.7 C 36.6 C Heart Rate Heart Rate [ 74 65 62 Brachial] Respiratory 18 20 16 Rate Blood Pressure [Left Radial artery] Blood Pressure 129/68 127/76 138/73 H [Right Brachial artery] O2 Saturation 95 95 96 08/18/17 08/19/17 08/19/17 23:06 00:32 05:00 Temperature 36.5 C 36.4 C L Heart Rate 76 Heart Rate [ 70 63 Brachial] Respiratory 16 18 18 Rate Blood Pressure 126/67 [Left Radial artery] Blood Pressure 136/75 H [Right Brachial artery] O2 Saturation 95 97 08/19/17 08/19/17 08/19/17 07:49 09:30 11:37 Temperature 36.6 C 36.5 C Heart Rate 69 Heart Rate [ 69 65 Brachial] Respiratory 16 17 18 Rate Blood Pressure [Left Radial artery] Blood Pressure 130/80 126/73 [Right Brachial artery] O2 Saturation 96 95 Oxygen O2 Source Oxymizer I&O (Last 24 Hrs): Intake and Output Totals x24h 08/17/17 08/18/17 08/19/17 23:59 23:59 23:59 Intake Total 1480 2560 720 Balance 1480 2560 720 General: Alert, Oriented x3 HEENT: Mucous membr. moist/pink Neck: Supple, No JVD Neuro: Non Focal Cardiovascular: No murmurs Respiratory: Other (Bilat diminished breath sounds) Abdomen: Soft Extremities: No edema - Results Results: Laboratory Results WBC 14.4 x10^3/uL (4.8-10.8) H 08/19/17 05:48 RBC 5.11 10^6/uL (4.20-5.40) 08/19/17 05:48 Hgb 14.9 g/dL (12.0-16.0) 08/19/17 05:48 Hct 46.4 % (37.0-47.0) 08/19/17 05:48 MCV 90.9 fL (81.0-99.0) 08/19/17 05:48 MCH 29.2 pg (27.0-31.0) 08/19/17 05:48 MCHC 32.1 g/dL (32.0-36.0) 08/19/17 05:48 RDW 14.5 % (12.0-15.0) 08/19/17 05:48 Plt Count 328 10^3/uL (130-450) 08/19/17 05:48 MPV 7.4 fL (7.9-10.8) L 08/19/17 05:48 Neut # 13.0 10^3/uL (1.5-6.6) H 08/19/17 05:48 Lymph # 0.8 10^3/uL (1.5-3.5) L 08/19/17 05:48 [place] # 0.6 10^3/uL (0.0-1.0) 08/19/17 05:48 Eos # 0.0 10^3/uL (0.0-0.7) 08/19/17 05:48 Baso # 0.0 10^3/uL (0.0-0.1) 08/19/17 05:48 Absolute Nucleated RBC 0.00 x10^3/uL 08/19/17 05:48 Nucleated RBC % 0.0 /100WBC 08/19/17 05:48 D-Dimer 219.7 ng/mL (200.0-255.0) 08/16/17 13:58 Bld Gas Analysis Time 07:48 08/18/17 07:48 Sample Site RIGHT RADIAL 08/18/17 07:48 ABG pH 7.41 (7.35-7.45) 08/18/17 07:48 ABG pCO2 46 mmHg (34-45) H 08/18/17 07:48 ABG pO2 98 mmHg (80-100) 08/18/17 07:48 ABG HCO3 29.0 mmol/L (22.0-26.0) H 08/18/17 07:48 ABG Total CO2 30.4 MMOL/L (21.0-29.0) H 08/18/17 07:48 ABG O2 Saturation 98 % (94-98) 08/18/17 07:48 ABG Base Excess 3.5 mmol/L (-2.0-3.0) H 08/18/17 07:48 Rickey Test POSITIVE 08/18/17 07:48 O2 Delivery Device OXYMIZER 08/18/17 07:48 O2 Liters/Min 10.00 LPM 08/18/17 07:48 Sodium 133 mmol/L (135-145) L 08/19/17 05:48 Potassium 4.3 mmol/L (3.5-5.0) 08/19/17 05:48 Chloride 94 mmol/L (101-111) L 08/19/17 05:48 Carbon Dioxide 31 mmol/L (21-32) 08/19/17 05:48 Anion Gap 8.0 (6-13) 08/19/17 05:48 BUN 30 mg/dL (6-20) H 08/19/17 05:48 Creatinine 0.9 mg/dL (0.4-1.0) 08/19/17 05:48 Estimated GFR (MDRD) 63 (>89) L 08/19/17 05:48 Glucose 142 mg/dL (70-100) H 08/19/17 05:48 Calcium 8.0 mg/dL (8.5-10.3) L 08/19/17 05:48 Total Bilirubin 0.6 mg/dL (0.2-1.0) 08/16/17 13:56 AST 19 IU/L (10-42) 08/16/17 13:56 ALT 16 IU/L (10-60) 08/16/17 13:56 Alkaline Phosphatase 105 IU/L (42-121) 08/16/17 13:56 Troponin I < 0.04 ng/mL (<0.49) 08/16/17 20:09 B-Natriuretic Peptide 140 pg/mL (5-100) H 08/16/17 23:46 Total Protein 7.2 g/dL (6.7-8.2) 08/16/17 13:56 Albumin 3.5 g/dL (3.2-5.5) 08/16/17 13:56 Globulin 3.7 g/dL (2.1-4.2) 08/16/17 13:56 Albumin/Globulin Ratio 0.9 (1.0-2.2) L 08/16/17 13:56 Lipase 22 U/L (22-51) 08/16/17 13:56
[2017-08-19] MEDS: cefTRIAXone 1 GM in SODIUM CHLORIDE 0.9% MINIBAG 100 ML IV SCH (13:26)
[2017-08-19] MEDS: BUTALB/ACETAM/CAFF 50/325/40MG TABLET PO PRN ×2 (14:21→20:27)
[2017-08-19] MEDS: ACETAMINOPHEN 325 MG TABLET PO PRN (21:20)
[2017-08-20] MEDS: SODIUM CHLORIDE FLUSH 0.9% 10 ML SYRINGE IVP SCH ×3 (00:04→15:33)
[2017-08-20] MEDS: SODIUM CHLORIDE FLUSH 0.9% 10 ML SYRINGE IVP PRN ×3 (00:05→12:29)
[2017-08-20] MEDS: MORPHINE 2 MG/ML SYRINGE IVP PRN (00:05)
[2017-08-20 06:00] LABS: CALCIUM 7.9 mg/dL (8.5-10.3); CREATININE 0.8 mg/dL (0.4-1.0); MAGNESIUM 2.9 mg/dL (1.7-2.8)
[2017-08-20] MEDS: ENOXAPARIN 40 MG/0.4 ML SYRINGE SUBQ SCH (09:38)
[2017-08-20] MEDS: FUROSEMIDE 20 MG TABLET PO SCH ×2 (09:38→19:01)
[2017-08-20] MEDS: FAMOTIDINE 20 MG TABLET PO SCH (09:38)
[2017-08-20] MEDS: guaiFENesin 600 MG TABLET PO SCH ×2 (09:39→21:46)
[2017-08-20] MEDS: POLYETHYLENE GLYCOL 3350 17 GM PACKET PO SCH (09:39)
[2017-08-20] MEDS: BUTALB/ACETAM/CAFF 50/325/40MG TABLET PO PRN ×3 (09:44→21:45)
[2017-08-20] MEDS: IPRATROPIUM/ALBUTEROL 3 ML NEB INH PRN (10:30)
[2017-08-20] MEDS ORDERED: SODIUM CHLORIDE FLUSH 0.9% 10 ML SYRINGE ONE (12:25)
[2017-08-20] MEDS: cefTRIAXone 1 GM in SODIUM CHLORIDE 0.9% MINIBAG 100 ML IV SCH (12:28)
[2017-08-20] MEDS: AZITHROMYCIN INJ 500 MG in SODIUM CHLORIDE 0.9% 250 ML IV SCH (13:56)
--- NOTE | 2017-08-20 16:59 | PROVIDER PROGRESS NOTE ---
Assessment/Plan - Problem List (1) CAP (community acquired pneumonia) Qualifiers: Laterality: right Lung location: lower lobe of lung Qualified Code(s): J18.1 - Lobar pneumonia, unspecified organism Assessment/Plan: Continue empiric iv antibiotics. Will transition to po antibiotics at discharge. (2) COPD (chronic obstructive pulmonary disease) Qualifiers: COPD type: COPD with acute exacerbation Qualified Code(s): J44.1 - Chronic obstructive pulmonary disease with (acute) exacerbation Assessment/Plan: Continue nebs, steroids, pulmonary toilet and slow wean off supplemental oxygen. (3) Chronic diastolic heart failure Assessment/Plan: Weight has been flat. No I's and O's measured, despite ordered at admission. Continue po Lasix for diastolic dysfunction. Monitor BMP. (4) Migraine Assessment/Plan: Pt still getting MONTES. Caffeine use is OK, Fioricet ordered. Will offer a Nicotine patch. (5) PTSD (post-traumatic stress disorder) Assessment/Plan: Stable (6) Tobacco use Assessment/Plan: Possible withdrawal headache from no Nicotine. Will offer a Nicoderm patch. - Current Meds Current Meds: Current Medications Generic Name Dose Route Start Last Admin Trade Name Freq PRN Reason Stop Dose Admin Acetaminophen 650 mg 08/16/17 18:03 08/19/17 21:20 Tylenol PO 650 mg Q4HR PRN Administration Pain or Fever > 38C (100.4F) Acetaminophen/Butalbital/Caffeine 2 tab 08/17/17 13:09 08/20/17 15:48 Fioricet PO 2 tab Q4HR PRN Administration HEADACHE Albuterol/Ipratropium 3 ml 08/16/17 18:10 08/20/17 10:30 Duoneb INH 3 ml Q4HR PRN Administration Wheezing Enoxaparin Sodium 40 mg 08/17/17 09:00 08/20/17 09:38 Lovenox SUBQ 40 mg DAILY RONNY Administration Famotidine 20 mg 08/17/17 09:00 08/20/17 09:38 Pepcid PO 20 mg DAILY RONNY Administration Furosemide 20 mg 08/19/17 09:00 08/20/17 09:38 Lasix PO 20 mg DAILY RONNY Administration Guaifenesin 600 mg 08/18/17 14:00 08/20/17 09:39 Mucinex PO 600 mg BID RONNY Administration Azithromycin 500 mg/ Sodium 250 mls @ 250 mls/hr 08/17/17 13:00 08/20/17 15: 18 Chloride IV Infused Q24H RONNY Infusion Ceftriaxone Sodium 1 gm/ 100 mls @ 200 mls/hr 08/17/17 13:00 08/20/17 14:00 Sodium Chloride IV Infused Q24H RONNY Infusion Morphine Sulfate 2 mg 08/16/17 18:03 08/20/17 00:05 Morphine IVP 2 mg Q2H PRN Administration Dyspnea Polyethylene Glycol 17 gm 08/17/17 09:00 08/20/17 09:39 Miralax PO Not Given DAILY RONNY Sodium Chloride 10 ml 08/16/17 18:03 08/20/17 12:29 Normal Saline Flush 0.9% IVP 10 ml PRN PRN Administration NEEDED PER PROVIDER ORDERS Sodium Chloride 10 ml 08/17/17 01:00 08/20/17 15:33 Normal Saline Flush 0.9% IVP 10 ml 0100,0900,1700 RONNY Administration - Lab Result Fish Bone Diagrams: 08/19/17 05:48 08/20/17 05:30 - Additional Planning My Orders: My Active Orders 08/19/17 16:07 CUL, RESPIRATORY [RM] Urgent 08/21/17 05:00 BMP - BASIC METABOLIC PANEL [CHEM] DAILYLAB MAGNESIUM [CHEM] DAILYLAB 08/22/17 05:00 BMP - BASIC METABOLIC PANEL [CHEM] DAILYLAB MAGNESIUM [CHEM] DAILYLAB Subjective - Subjective Patient Reports: Feeling Better, Other (No increase in urine output compared to pre-admission) Objective Vital Signs: Vital Signs - 24 hr 08/19/17 08/19/17 08/20/17 20:18 21:47 00:05 Temperature 36.6 C 36.4 C L Heart Rate 59 L Heart Rate [ 66 68 Brachial] Respiratory 18 16 20 Rate Blood Pressure 131/75 H 117/70 [Left Radial artery] Blood Pressure [Right Brachial artery] O2 Saturation 95 94 08/20/17 08/20/17 08/20/17 06:00 08:36 10:30 Temperature 36.4 C L 36.4 C L Heart Rate 67 Heart Rate [ 75 61 Brachial] Respiratory 20 20 16 Rate Blood Pressure 136/84 H [Left Radial artery] Blood Pressure 140/76 H [Right Brachial artery] O2 Saturation 94 96 08/20/17 15:42 Temperature 36.5 C Heart Rate Heart Rate [ 62 Brachial] Respiratory 18 Rate Blood Pressure [Left Radial artery] Blood Pressure 132/74 H [Right Brachial artery] O2 Saturation 97 Oxygen O2 Source Oxymizer I&O (Last 24 Hrs): Intake and Output Totals x24h 08/18/17 08/19/17 08/20/17 23:59 23:59 23:59 Intake Total 2560 2170 1070 Balance 2560 2170 1070 General: Alert, Oriented x3, No acute distress HEENT: Mucous membr. moist/pink Neck: Supple, No JVD Neuro: Non Focal Cardiovascular: Regular rate, No murmurs Respiratory: Other (Diminished at both bases posteriorly) Abdomen: Soft, Other (Obese) Extremities: No edema - Results Results: Laboratory Results WBC 14.4 x10^3/uL (4.8-10.8) H 08/19/17 05:48 RBC 5.11 10^6/uL (4.20-5.40) 08/19/17 05:48 Hgb 14.9 g/dL (12.0-16.0) 08/19/17 05:48 Hct 46.4 % (37.0-47.0) 08/19/17 05:48 MCV 90.9 fL (81.0-99.0) 08/19/17 05:48 MCH 29.2 pg (27.0-31.0) 08/19/17 05:48 MCHC 32.1 g/dL (32.0-36.0) 08/19/17 05:48 RDW 14.5 % (12.0-15.0) 08/19/17 05:48 Plt Count 328 10^3/uL (130-450) 08/19/17 05:48 MPV 7.4 fL (7.9-10.8) L 08/19/17 05:48 Neut # 13.0 10^3/uL (1.5-6.6) H 08/19/17 05:48 Lymph # 0.8 10^3/uL (1.5-3.5) L 08/19/17 05:48 [place] # 0.6 10^3/uL (0.0-1.0) 08/19/17 05:48 Eos # 0.0 10^3/uL (0.0-0.7) 08/19/17 05:48 Baso # 0.0 10^3/uL (0.0-0.1) 08/19/17 05:48 Absolute Nucleated RBC 0.00 x10^3/uL 08/19/17 05:48 Nucleated RBC % 0.0 /100WBC 08/19/17 05:48 D-Dimer 219.7 ng/mL (200.0-255.0) 08/16/17 13:58 Bld Gas Analysis Time 07:48 08/18/17 07:48 Sample Site RIGHT RADIAL 08/18/17 07:48 ABG pH 7.41 (7.35-7.45) 08/18/17 07:48 ABG pCO2 46 mmHg (34-45) H 08/18/17 07:48 ABG pO2 98 mmHg (80-100) 08/18/17 07:48 ABG HCO3 29.0 mmol/L (22.0-26.0) H 08/18/17 07:48 ABG Total CO2 30.4 MMOL/L (21.0-29.0) H 08/18/17 07:48 ABG O2 Saturation 98 % (94-98) 08/18/17 07:48 ABG Base Excess 3.5 mmol/L (-2.0-3.0) H 08/18/17 07:48 Rickey Test POSITIVE 08/18/17 07:48 O2 Delivery Device OXYMIZER 08/18/17 07:48 O2 Liters/Min 10.00 LPM 08/18/17 07:48 Sodium 135 mmol/L (135-145) 08/20/17 05:30 Potassium 3.9 mmol/L (3.5-5.0) 08/20/17 05:30 Chloride 94 mmol/L (101-111) L 08/20/17 05:30 Carbon Dioxide 34 mmol/L (21-32) H 08/20/17 05:30 Anion Gap 7.0 (6-13) 08/20/17 05:30 BUN 28 mg/dL (6-20) H 08/20/17 05:30 Creatinine 0.8 mg/dL (0.4-1.0) 08/20/17 05:30 Estimated GFR (MDRD) 72 (>89) L 08/20/17 05:30 Glucose 109 mg/dL (70-100) H 08/20/17 05:30 Calcium 7.9 mg/dL (8.5-10.3) L 08/20/17 05:30 Magnesium 2.9 mg/dL (1.7-2.8) H 08/20/17 05:30 Total Bilirubin 0.6 mg/dL (0.2-1.0) 08/16/17 13:56 AST 19 IU/L (10-42) 08/16/17 13:56 ALT 16 IU/L (10-60) 08/16/17 13:56 Alkaline Phosphatase 105 IU/L (42-121) 08/16/17 13:56 Troponin I < 0.04 ng/mL (<0.49) 08/16/17 20:09 B-Natriuretic Peptide 140 pg/mL (5-100) H 08/16/17 23:46 Total Protein 7.2 g/dL (6.7-8.2) 08/16/17 13:56 Albumin 3.5 g/dL (3.2-5.5) 08/16/17 13:56 Globulin 3.7 g/dL (2.1-4.2) 08/16/17 13:56 Albumin/Globulin Ratio 0.9 (1.0-2.2) L 08/16/17 13:56 Lipase 22 U/L (22-51) 08/16/17 13:56
[2017-08-21] MEDS: SODIUM CHLORIDE FLUSH 0.9% 10 ML SYRINGE IVP SCH ×3 (01:48→22:07)
[2017-08-21] MEDS: MORPHINE 2 MG/ML SYRINGE IVP PRN (01:50)
[2017-08-21 05:27] LABS: CREATININE 0.9 mg/dL (0.4-1.0); MAGNESIUM 2.5 mg/dL (1.7-2.8)
[2017-08-21 05:41] LABS: CALCIUM 7.6 mg/dL (8.5-10.3)
[2017-08-21] MEDS: CALCIUM CARB (OYSTER SHELL) 500 MG TABLET PO SCH ×2 (08:29→22:07)
[2017-08-21] MEDS: FAMOTIDINE 20 MG TABLET PO SCH (08:29)
[2017-08-21] MEDS: FUROSEMIDE 20 MG TABLET PO SCH ×2 (08:29→22:07)
[2017-08-21] MEDS: guaiFENesin 600 MG TABLET PO SCH ×2 (08:29→22:07)
[2017-08-21] MEDS: methylPREDNISolone SUCCINATE 125 MG/2 ML VIAL IVP SCH ×3 (08:30→22:07)
[2017-08-21] MEDS: POLYETHYLENE GLYCOL 3350 17 GM PACKET PO SCH (08:43)
[2017-08-21] MEDS: BUTALB/ACETAM/CAFF 50/325/40MG TABLET PO PRN (08:56)
[2017-08-21] MEDS ORDERED: IPRATROPIUM/ALBUTEROL 3 ML NEB INH SCH (09:00)
[2017-08-21] MEDS: IPRATROPIUM/ALBUTEROL 3 ML NEB INH SCH ×3 (11:40→19:57)
[2017-08-21] MEDS: ENOXAPARIN 40 MG/0.4 ML SYRINGE SUBQ SCH (12:40)
[2017-08-21] MEDS: cefTRIAXone 1 GM in SODIUM CHLORIDE 0.9% MINIBAG 100 ML IV SCH (12:41)
[2017-08-21] MEDS: AZITHROMYCIN INJ 500 MG in SODIUM CHLORIDE 0.9% 250 ML IV SCH (13:27)
--- NOTE | 2017-08-21 13:31 | PROVIDER PROGRESS NOTE ---
Assessment/Plan - Problem List (1) CAP (community acquired pneumonia) Qualifiers: Laterality: right Lung location: lower lobe of lung Qualified Code(s): J18.1 - Lobar pneumonia, unspecified organism Assessment/Plan: No cultures were positive, therefore she remains on empiric antibiotics with Ceftriaxone and Zithromax for community acquired pneumonia. Will recheck a CXR tody. (2) COPD (chronic obstructive pulmonary disease) Qualifiers: COPD type: COPD with acute exacerbation Qualified Code(s): J44.1 - Chronic obstructive pulmonary disease with (acute) exacerbation Assessment/Plan: The patient has never had PFTs or been officially labeled as having COPD, but clinically she behaves like a COPDer (tripod breathing, purple lips, prolonged expiratory phase and occasional scattered wheezing heard). Pt down to 4L O2 from 10L O2 by oximizer several days ago. She still desaturated to 88% quickly, when put on R.A. today. Will change prn inhalers to scheduled, as Pt is slow to reverse her "tightness". Will add iv steroids. (3) Chronic diastolic heart failure Assessment/Plan: Pt did have a significant diuresis on higher dose of Lasix. Continue monitoring accurate I's and O's and monitor K, Mg and BUN, creat. (4) Migraine Assessment/Plan: Pt is getting Fioricet prn, which helps. (5) PTSD (post-traumatic stress disorder) Assessment/Plan: I had a long talk with her about how her anxiety/PTSD and adult ADHD were managed before, since she has been on no home meds for 3-4 years. She felt best when she was on Adderall. It was tapered to off 4 years ago and she was OK for a while, but feeling worse for the past 9-12 mos. Will restart Adderall today 5 mg po bid (will order as patient may take her own pills, which will be ordered at a local pharmacy, since our in-house pharmacy does not carry it). This plan was reviewed with our Pharmacist, Sukumar. (6) Tobacco use Assessment/Plan: No urges and she does not want a Nicoderm patch. - Current Meds Current Meds: Current Medications Generic Name Dose Route Start Last Admin Trade Name Freq PRN Reason Stop Dose Admin Acetaminophen 650 mg 08/16/17 18:03 08/19/17 21:20 Tylenol PO 650 mg Q4HR PRN Administration Pain or Fever > 38C (100.4F) Acetaminophen/Butalbital/Caffeine 2 tab 08/17/17 13:09 08/21/17 08:56 Fioricet PO 2 tab Q4HR PRN Administration HEADACHE Albuterol/Ipratropium 3 ml 08/21/17 11:00 08/21/17 11:40 Duoneb INH 3 ml RTQID RONNY Administration Calcium Carbonate/Glycine 500 mg 08/21/17 09:00 08/21/17 08:29 Oysco-500 PO 500 mg BID RONNY Administration Enoxaparin Sodium 40 mg 08/17/17 09:00 08/21/17 12:40 Lovenox SUBQ Not Given DAILY RONNY Famotidine 20 mg 08/17/17 09:00 08/21/17 08:29 Pepcid PO 20 mg DAILY RONNY Administration Furosemide 40 mg 08/20/17 17:33 08/21/17 08:29 Lasix PO 40 mg BID RONNY Administration Guaifenesin 600 mg 08/18/17 14:00 08/21/17 08:29 Mucinex PO 600 mg BID RONNY Administration Azithromycin 500 mg/ Sodium 250 mls @ 250 mls/hr 08/17/17 13:00 08/20/17 15: 18 Chloride IV Infused Q24H RONNY Infusion Ceftriaxone Sodium 1 gm/ 100 mls @ 200 mls/hr 08/17/17 13:00 08/21/17 12:41 Sodium Chloride IV 100 mls/hr Q24H RONNY Administration Methylprednisolone Sodium Succinate 125 mg 08/21/17 09:00 08/21/17 08:30 Solu-Medrol (125mg Vial) IVP 125 mg TID RONNY Administration Morphine Sulfate 2 mg 08/16/17 18:03 08/21/17 01:50 Morphine IVP 2 mg Q2H PRN Administration Dyspnea Polyethylene Glycol 17 gm 08/17/17 09:00 08/21/17 08:43 Miralax PO Not Given DAILY RONNY Sodium Chloride 10 ml 08/16/17 18:03 08/20/17 12:29 Normal Saline Flush 0.9% IVP 10 ml PRN PRN Administration NEEDED PER PROVIDER ORDERS Sodium Chloride 10 ml 08/17/17 01:00 08/21/17 08:30 Normal Saline Flush 0.9% IVP 10 ml 0100,0900,1700 [facility] Administration - Lab Result Fish Bone Diagrams: 08/19/17 05:48 08/21/17 05:06 - Additional Planning My Orders: My Active Orders 08/20/17 17:06 Miscellaenous Nursing Order [RC] QSHIFT 08/20/17 17:33 Furosemide [Lasix] 40 mg PO BID 08/21/17 07:55 Oxygen Desat. Study w/Exercise [RC] .ONCE 08/21/17 09:00 Calcium Carb (Oyster Shell) [Oysco-500] 500 mg PO BID methylPREDNISolone SUCCINATE [SOLU-Medrol (125MG VIAL)] 125 mg IVP TID 08/21/17 11:00 Ipratropium/Albuterol [Duoneb] 3 ml INH RTQID 08/22/17 05:00 BMP - BASIC METABOLIC PANEL [CHEM] DAILYLAB MAGNESIUM [CHEM] DAILYLAB Subjective - Subjective Patient Reports: Shortness of Breath, Other (Patient thiks part of her air hunger is anxiety from ADHD/PTSD. She was tried on SSRIs and antidepressants which made her feel worse. Adderall violeta her feel better. Adderall was tapered to off and stopped 4 years ago to see if she could do without it.) Nursing Reports: Other (Feels weak in thighs when walking to toilet to sit on it ) Objective Vital Signs: Vital Signs - 24 hr 08/20/17 08/20/17 08/21/17 15:42 19:43 00:45 Temperature 36.5 C 36.8 C Heart Rate 71 Heart Rate [ 62 69 Brachial] Respiratory 18 16 18 Rate Blood Pressure 132/74 H 118/74 [Right Brachial artery] Blood Pressure [Right Radial artery] O2 Saturation 97 95 08/21/17 08/21/17 08/21/17 07:03 08:16 11:40 Temperature 36.5 C Heart Rate 76 72 Heart Rate [ 66 Brachial] Respiratory 18 18 18 Rate Blood Pressure [Right Brachial artery] Blood Pressure 122/48 L [Right Radial artery] O2 Saturation 94 Oxygen O2 Source Room air I&O (Last 24 Hrs): Intake and Output Totals x24h 08/19/17 08/20/17 08/21/17 23:59 23:59 23:59 Intake Total 2170 1820 1020 Output Total 1180 2900 Balance 2170 640 -1880 General: Alert, Oriented x3 HEENT: Mucous membr. moist/pink, Other (on O2 per oximizer this am) Neck: Supple, No JVD Neuro: Alert Cardiovascular: No murmurs Respiratory: Other (Diminished breath sounds, poor air movement.) Abdomen: Soft Extremities: No edema - Results Results: Laboratory Results WBC 14.4 x10^3/uL (4.8-10.8) H 08/19/17 05:48 RBC 5.11 10^6/uL (4.20-5.40) 08/19/17 05:48 Hgb 14.9 g/dL (12.0-16.0) 08/19/17 05:48 Hct 46.4 % (37.0-47.0) 08/19/17 05:48 MCV 90.9 fL (81.0-99.0) 08/19/17 05:48 MCH 29.2 pg (27.0-31.0) 08/19/17 05:48 MCHC 32.1 g/dL (32.0-36.0) 08/19/17 05:48 RDW 14.5 % (12.0-15.0) 08/19/17 05:48 Plt Count 328 10^3/uL (130-450) 08/19/17 05:48 MPV 7.4 fL (7.9-10.8) L 08/19/17 05:48 Neut # 13.0 10^3/uL (1.5-6.6) H 08/19/17 05:48 Lymph # 0.8 10^3/uL (1.5-3.5) L 08/19/17 05:48 Quay # 0.6 10^3/uL (0.0-1.0) 08/19/17 05:48 Eos # 0.0 10^3/uL (0.0-0.7) 08/19/17 05:48 Baso # 0.0 10^3/uL (0.0-0.1) 08/19/17 05:48 Absolute Nucleated RBC 0.00 x10^3/uL 08/19/17 05:48 Nucleated RBC % 0.0 /100WBC 08/19/17 05:48 D-Dimer 219.7 ng/mL (200.0-255.0) 08/16/17 13:58 Bld Gas Analysis Time 07:48 08/18/17 07:48 Sample Site RIGHT RADIAL 08/18/17 07:48 ABG pH 7.41 (7.35-7.45) 08/18/17 07:48 ABG pCO2 46 mmHg (34-45) H 08/18/17 07:48 ABG pO2 98 mmHg (80-100) 08/18/17 07:48 ABG HCO3 29.0 mmol/L (22.0-26.0) H 08/18/17 07:48 ABG Total CO2 30.4 MMOL/L (21.0-29.0) H 08/18/17 07:48 ABG O2 Saturation 98 % (94-98) 08/18/17 07:48 ABG Base Excess 3.5 mmol/L (-2.0-3.0) H 08/18/17 07:48 Rickey Test POSITIVE 08/18/17 07:48 O2 Delivery Device OXYMIZER 08/18/17 07:48 O2 Liters/Min 10.00 LPM 08/18/17 07:48 Sodium 137 mmol/L (135-145) 08/21/17 05:06 Potassium 3.7 mmol/L (3.5-5.0) 08/21/17 05:06 Chloride 93 mmol/L (101-111) L 08/21/17 05:06 Carbon Dioxide 37 mmol/L (21-32) H 08/21/17 05:06 Anion Gap 7.0 (6-13) 08/21/17 05:06 BUN 25 mg/dL (6-20) H 08/21/17 05:06 Creatinine 0.9 mg/dL (0.4-1.0) 08/21/17 05:06 Estimated GFR (MDRD) 63 (>89) L 08/21/17 05:06 Glucose 91 mg/dL (70-100) 08/21/17 05:06 Calcium 7.6 mg/dL (8.5-10.3) L 08/21/17 05:06 Magnesium 2.5 mg/dL (1.7-2.8) 08/21/17 05:06 Total Bilirubin 0.6 mg/dL (0.2-1.0) 08/16/17 13:56 AST 19 IU/L (10-42) 08/16/17 13:56 ALT 16 IU/L (10-60) 08/16/17 13:56 Alkaline Phosphatase 105 IU/L (42-121) 08/16/17 13:56 Troponin I < 0.04 ng/mL (<0.49) 08/16/17 20:09 B-Natriuretic Peptide 140 pg/mL (5-100) H 08/16/17 23:46 Total Protein 7.2 g/dL (6.7-8.2) 08/16/17 13:56 Albumin 3.5 g/dL (3.2-5.5) 08/16/17 13:56 Globulin 3.7 g/dL (2.1-4.2) 08/16/17 13:56 Albumin/Globulin Ratio 0.9 (1.0-2.2) L 08/16/17 13:56 Lipase 22 U/L (22-51) 08/16/17 13:56
[2017-08-21] MEDS: DEXTROAMP PO SCH ×2 (15:20→22:07)
[2017-08-21] MEDS: AMPHETAMINE PO SCH ×2 (15:20→22:07)
--- NOTE | 2017-08-21 15:56 | XRAY Preliminary Report ---
Exam: XR CHEST 1 VIEW X-RAY IMPRESSION: 1. No significant interval change of the patchy right basilar pulmonary opacity, small right pleural effusion. 2. Mild cardiomegaly without overt pulmonary edema. [facility] SITE ID: [id number]
--- NOTE | 2017-08-21 15:57 | XRAY Report ---
EXAM: CHEST RADIOGRAPHY EXAM DATE: 08/21/2017 02:16 PM. CLINICAL HISTORY: F/U pneumonia, still SOB. COMPARISON: 08/17/2017. TECHNIQUE: 1 view. FINDINGS: Lungs/Pleura: Right basilar patchy opacity and small right pleural effusion demonstrate no significan t interval change. No new focal opacities evident. No significant left pleural effusion. No pneumotho rax. Mediastinum: Stable mild cardiomegaly. IMPRESSION: 1. No significant interval change of the patchy right basilar pulmonary opacity, small right pleural effusion. 2. Mild cardiomegaly without overt pulmonary edema. [facility] Referring Provider Line: [phone] SITE ID: [id number]
[2017-08-21] MEDS ORDERED: ADDERALL PO SCH (16:00)
[2017-08-22] MEDS: MORPHINE 2 MG/ML SYRINGE IVP PRN (03:53)
[2017-08-22] MEDS: SODIUM CHLORIDE FLUSH 0.9% 10 ML SYRINGE IVP SCH ×2 (03:54→08:26)
[2017-08-22 06:36] LABS: CALCIUM 8.1 mg/dL (8.5-10.3); CREATININE 0.8 mg/dL (0.4-1.0); MAGNESIUM 2.5 mg/dL (1.7-2.8)
[2017-08-22] MEDS: SODIUM CHLORIDE FLUSH 0.9% 10 ML SYRINGE IVP PRN (06:51)
[2017-08-22] MEDS: methylPREDNISolone SUCCINATE 125 MG/2 ML VIAL IVP SCH (06:51)
[2017-08-22] MEDS: IPRATROPIUM/ALBUTEROL 3 ML NEB INH SCH (07:12)
[2017-08-22] MEDS: guaiFENesin 600 MG TABLET PO SCH (08:25)
[2017-08-22] MEDS: AMPHETAMINE PO SCH ×2 (08:25→12:44)
[2017-08-22] MEDS: FAMOTIDINE 20 MG TABLET PO SCH (08:25)
[2017-08-22] MEDS: DEXTROAMP PO SCH ×2 (08:25→12:44)
[2017-08-22] MEDS: ENOXAPARIN 40 MG/0.4 ML SYRINGE SUBQ SCH (08:25)
[2017-08-22] MEDS: FUROSEMIDE 20 MG TABLET PO SCH (08:25)
[2017-08-22] MEDS: CALCIUM CARB (OYSTER SHELL) 500 MG TABLET PO SCH (08:25)
[2017-08-22] MEDS: POLYETHYLENE GLYCOL 3350 17 GM PACKET PO SCH (08:26)
[2017-08-22 09:35] VITALS: BP 134/87
--- NOTE | 2017-08-22 11:13 | Discharge Plan ---
Discharge Plan Disposition: Home Health Service Condition: Stable Prescriptions: cefUROXime axetil [Ceftin] 500 mg PO Q12H #8 tablet Dextroamphetamine/Amphetamine [Adderall 5 mg Tablet] 5 mg PO TID #90 tablet Furosemide [Lasix] 40 mg PO DAILY #30 tablet Ipratropium/Albuterol [Duoneb] 3 ml INH Q6H PRN #120 neb PRN Reason: Wheezing Methylprednisolone [Medrol] 4 mg PO UD #1 tab.ds.pk Diet: Regular Activity Restrictions: Activity as Tolerated Shower Restrictions: No Driving Restrictions: No Assistance Devices: Walker Instruction Topics: COPD, Quit Smoking Plan Additional Instructions or Follow Up instructions: Your admitted to the hospital because of shortness of breath, wheezing, and we found you to have pneumonia. We also wonder if you have chronic obstructive lung disease because you are a smoker. Even 1 or 2 cigarettes a day can lead to COPD. While here, you needed oxygen. You will continue to need oxygen in the home situation for a few more weeks. I anticipate that you will come off oxygen in the next few weeks. You felt that your PTSD was becoming more active. We called in a prescription for Adderall which is the treatment you used in the past. You had the best night 's sleep you've had in months if not years after one dose. We will be sending you home with 30 days worth of treatment via a prescription to your pharmacy. In the meantime, you will need to establish yourself with a psychiatrist, and see your primary care provider for follow-up. One of them will need to prescribe that medicine for you to continue it in the future. We will recommend that you get pulmonary function studies to examine the volumes and oxygen in your lung. We also recommend you stop smoking completely. You will need 3 more days of to complete your antibiotic therapy. You will also be sent home on a tapering dose of steroids since you have been on steroids for 6 days while here and we can't stop them suddenly. Once you are at home, try to walk within the house regularly. You need to build up your strength to get back to you baseline activity. Follow-Up Care: Home Health - RN No Smoking: If you smoke, Please STOP! Call for help. Follow-up with: Shanti John ARNP [Credentialed Staff Provider] -
[2017-08-22] MEDS ORDERED: AZITHROMYCIN 250 MG TABLET PO SCH (12:29)
[2017-08-22] MEDS: BUTALB/ACETAM/CAFF 50/325/40MG TABLET PO PRN (13:06)
--- NOTE | 2017-08-24 03:05 | DISCHARGE SUMMARY ---
Physician: Elidia William MD DATE OF ADMISSION: 08/16/2017 DATE OF DISCHARGE: 08/22/2017 PRIMARY CARE PROVIDER: KRISTAN Syed DISCHARGE DIAGNOSES 1. Community-acquired pneumonia. 2. Chronic obstructive pulmonary disease exacerbation. 3. Chronic diastolic heart failure. 4. Migraine headache. 5. Posttraumatic stress disorder. 6. Ongoing tobacco abuse. DISCHARGE MEDICATIONS 1. Ceftin 500 mg p.o. every 12 hours. 2. Adderall 5 mg tablets t.i.d. 3. Lasix 40 mg p.o. daily. 4. DuoNeb via nebulizer q.6h. as needed. 5. Medrol Dosepak to be tapered as directed on package. 6. Oxygen 2 liters nasal cannula at rest, 6 liters nasal cannula with exertion. PRINCIPAL PROCEDURES 1. Blood cultures were negative after 5 days. 2. Gram stain and respiratory culture were canceled. 3. Normal respiratory owen present in second sputum culture. 4. Echocardiogram with mild concentric left ventricular hypertrophy, overall left ventricular systolic function normal with an ejection fraction of 55-60%. Impaired relaxation, compatible with grade 1 diastolic dysfunction. Right ventricle was normal size and function. Mild right ventricular enlargement. Right ventricular systolic function normal. Mildly abnormal right heart pressures. Right ventricular systolic pressure at rest was 37 mmHg. 5. Chest x-ray x3. First chest x-ray showed a small right pleural effusion and an adjoining lung opacification compatible with pneumonia. Another x-ray done the next day on 08/21/2017 showed no significant change of the right basilar pulmonary opacity with small right pleural effusion. Mild cardiomegaly without overt pulmonary edema. HOSPITAL COURSE: This 66-year-old morbidly obese female was around a friend two weeks ago that had a bad pneumonia. The patient herself then developed a mild productive cough, but it has gotten worse and worse with more chest congestion, worsening cough, and increasing shortness of breath, paroxysmal nocturnal dyspnea and orthopnea. She did not have fever, chest pain, leg edema, palpitations, or chest pain. She does have a history of asthma and pneumonia. She was treated for SIRS in 2002 and required home oxygen and nebulizers for quite some time, but she was gradually able to stop using those medicines and has not used any of that medicine for years. She also has a history of PTSD and adult ADD, which was treated with Adderall. She stopped those four or five years ago. She also has a history of migraines. She finds herself having another headache very similar to what she had with migraine headaches. In the emergency room, she was tachypneic, wheezing, had a right lower lobe pneumonia and was admitted for community-acquired pneumonia and acute respiratory distress. Blood cultures and sputum cultures were ordered and unfortunately were not helpful. She was started on empiric antibiotic therapy with azithromycin and ceftriaxone. The patient was responding in that she felt better, and did not develop any fevers during her stay. Her main problem was that of asthma exacerbation and she needed IV steroids and frequent nebulizers. Migraine headache was treated with Fioricet. Because she was having elements of congestive heart failure as well, an echocardiogram was done and showed her to have mild chronic diastolic failure. BNP was mildly elevated at 167 and came down to 140 with diuresis. The patient felt that some of her anxiety and PTSD stress reaction was coming back in the face of this asthma and pneumonia. She wanted a refill of her Adderall. Unfortunately, we do not have that on formulary. We sent her to the pharmacy with a prescription and he picked up a 30-day supply and brought it to the hospital so she could use it here. She is to continue it in the outpatient setting, but needs to have her primary care doctor refill that. She is also an ongoing smoker. We strongly encouraged her to stop smoking. She was offered a nicotine patch while here and declined. Asthma was controlled with DuoNeb treatments and the IV steroids. Since she was here for close to 6 days, she will be sent home on a Medrol Dosepak to taper. She still had considerable hypoxia at rest. That was being treated with oxygen and Lasix and nebulizers. She is to continue her Lasix at home. She was hypoxic at rest with room air saturations of 86%. At rest, with 2 liters nasal cannula, her saturations improved to 92%. With exertion on 2 liters per minute, her saturations were 85%, on 4 liters were 88%m on 5 liters were 88%. Finally, on 6 liters per minute nasal cannula with exertion, her saturations improved to 90%. I am ordering home O2 at 2 liters per minute at rest with 6 liters nasal cannula with exertion to treat her congestive heart failure and COPD. I am also ordering a home nebulizer machine for administration of bronchodilators to help her treat her COPD with asthma. She is discharged in stable condition with a temperature of 36.4, heart rate 66, blood pressure 134/87, respirations 16 and 93% at rest with 2 liters. She is a short-statured severely obese middle-aged, white female who looks her stated age. She has a slight nasal tone of voice, but is sitting comfortably in her bed and is actually quite a longwinded rapid fire talker. During her 30-minute visit with me, there was no tachypnea, no increased respiratory effort as long she stayed in bed. Neck was supple. She had diminished breath sounds at the bases. There was no egophony. No crackles. No rhonchi. PMI was normally placed and she had a regular rate and rhythm without any murmurs. The abdomen was huge protuberant, a large pannus that prohibited any evaluation for organomegaly. But she had normal bowel sounds and was nontender. The extremities had trace edema. She is able to sit up on her own and ambulate with standby assist. She has been asked to followup with her primary care provider, KRISTAN Syed. She will need to have her lungs examined and the steroid dose tapering monitored. She needs to finish her antibiotic therapy and a repeat chest x-ray in a month. I do not know if Ms. oJhn is comfortable refilling her Adderall or if she will need to be referred to psychiatry for her PTSD. [place]. I am hoping that Ms. John will be able to provide a list for the patient. Greater than 30 minutes was spent in coordinating discharge. cc: KRISTAN Syed TD: 08/23/2017 17:05
== END 2017-08-22 14:25 | disposition home health service (06) | DRG 190 ==
LOC: EDBD → EDUNIT# → ED 13:22 → MS2 17:37
PROVIDERS: ADMIT Internal Medicine; ATTEND Specialist
DX: J18.1 Lobar pneumonia, unspecified organism (principal); J44.9 Chronic obstructive pulmonary disease, unspecified; J44.0 Chronic obstructive pulmonary disease with (acute) lower respiratory infection; J18.9 Pneumonia, unspecified organism; K52.9 Noninfective gastroenteritis and colitis, unspecified; Z68.42 Body mass index [BMI] 45.0-49.9, adult; I50.32 Chronic diastolic (congestive) heart failure; J44.1 Chronic obstructive pulmonary disease with (acute) exacerbation; G70.9 Myoneural disorder, unspecified; F17.210 Nicotine dependence, cigarettes, uncomplicated; G43.909 Migraine, unspecified, not intractable, without status migrainosus; F43.10 Post-traumatic stress disorder, unspecified; E66.9 Obesity, unspecified; F41.9 Anxiety disorder, unspecified; F90.9 Attention-deficit hyperactivity disorder, unspecified type; Z87.01 Personal history of pneumonia (recurrent)
CPT/HCPCS: 36415; 36600; 71045; 71046; 80048; 80053; 82803; 83690; 83735; 83880; 84484; 85025; 85379; 87040; 87070; 87205; 93005; 93306; 94640; 94761; 96365; 96366; 96368; 96375; 99283; 99285

== ENCOUNTER 2017-09-07 08:00 | Outpatient (CLI) | payer MEDICARE, MEDICAID ==
[2017-09-07 10:55] LABS: BASOPHILS % (AUTO) 0.3 %; EOSINOPHILS # (AUTO) 0.2 10^3/uL (0.0-0.7); HGB - HEMOGLOBIN 16.3 g/dL (12.0-16.0); LYMPHOCYTES # (AUTO) 1.7 10^3/uL (1.5-3.5); LYMPHOCYTES % (AUTO) 10.3 %; MEAN CORPUSCULAR HEMOGLOBIN 29.7 pg (27.0-31.0); MEAN CORPUSCULAR HGB CONC 32.4 g/dL (32.0-36.0); MEAN CORPUSCULAR VOLUME 91.6 fL (81.0-99.0); MONOCYTES # (AUTO) 0.9 10^3/uL (0.0-1.0); MONOCYTES % (AUTO) 5.3 %; NEUTROPHILS # (AUTO) 13.3 10^3/uL (1.5-6.6); NEUTROPHILS % (AUTO) 83.1 %; PLT - PLATELET COUNT 285 10^3/uL (130-450); RED BLOOD COUNT 5.49 10^6/uL (4.20-5.40); RED CELL DISTRIBUTION WIDTH 14.7 % (12.0-15.0)
[2017-09-07 11:33] LABS: ALBUMIN 3.4 g/dL (3.2-5.5); ALKALINE PHOSPHATASE 105 IU/L (42-121); ALT ALANINE AMINOTRANSFERASE 47 IU/L (10-60); AST ASPARTATE AMINOTRANSFERASE 34 IU/L (10-42); BILIRUBIN,TOTAL 0.8 mg/dL (0.2-1.0); BUN - BLOOD UREA NITROGEN 26 mg/dL (6-20); CALCIUM 8.9 mg/dL (8.5-10.3); CARBON DIOXIDE - CO2 35 mmol/L (21-32); CHLORIDE 93 mmol/L (101-111); CHOL/HDL RATIO 4.2 (<4.4); CHOLESTEROL 221 mg/dL; CREATININE 0.8 mg/dL (0.4-1.0); GFR - MDRD 72 (>89); GLUCOSE 101 mg/dL (70-100); HDL CHOLESTEROL 53 mg/dL; LDL CHOLESTEROL,CALCULATED 143 mg/dL; LDL/HDL RATIO 2.7 (<4.4); SODIUM 137 mmol/L (135-145); TOTAL PROTEIN 6.8 g/dL (6.7-8.2); VLDL CHOLESTEROL 25 mg/dL
== END 2017-09-07 08:01 ==
LOC: LAB.R 08:00
PROVIDERS: ATTEND Nurse Practitioner Family
DX: I50.9 Heart failure, unspecified (principal); J44.9 Chronic obstructive pulmonary disease, unspecified
CPT/HCPCS: 80053; 80061; 83721; 83880; 84443; 85025

== ENCOUNTER 2017-09-19 11:09 | Outpatient (CLI) | payer MEDICARE, MEDICAID | END 2017-09-19 11:10 | disposition critical access hospital (66) | LOC: EMS 11:09 | PROVIDERS: ATTEND Surgery | DX: R06.00 Dyspnea, unspecified (principal); R53.81 Other malaise | CPT/HCPCS: A0425; A0427 ==

== ENCOUNTER 2017-09-19 11:54 | Inpatient (IN) | payer MEDICARE, MEDICAID ==
[2017-09-19] MEDS ORDERED: SODIUM CHLORIDE 0.9% 500 ML IV ONE (12:25)
[2017-09-19] MEDS ORDERED: IPRATROPIUM/ALBUTEROL 3 ML NEB INH STA (12:25)
--- NOTE | 2017-09-19 12:27 | ED Physician Documentation ---
PD HPI DYSPNEA - Stated complaint Stated Complaint: SOA - Chief complaint Chief Complaint: Resp - History obtained from History obtained from: Patient, EMS - History of Present Illness Timing - onset: How many weeks ago (2) Timing - onset during: Light activity Timing - duration: Weeks (2) Timing - details: Gradual onset, Still present Inciting event(s): URI Improved by: O2, Inhaler/neb, Steroids, Sitting up Worsened by: Exertion, Coughing Associated symptoms: Cough, Wheezing, Chest pain / discomfort Similar symptoms before: Diagnosis (pneumonia and CHF) Recently seen: Admitted - Additional information Additional information: 66-year-old female with history of COPD and CHF was admitted into the hospital last month with right lower lobe pneumonia. She was treated with intravenous Rocephin and azithromycin as well as steroids and rhonchi dilators and she improved. She was discharged after a prolonged hospitalization on oxygen. She did well for about 1 week and then subsequently developed increasing exertional dyspnea and dyspnea at rest as well as cough. She has been using her furosemide and she thinks she has lost about 30 pounds in weight. 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 - Present Medications Home Medications: Ambulatory Orders Medication Instructions Recorded Confirmed Ipratropium/Albuterol [Duoneb] 3 ml INH Q6H PRN #120 neb 08/22/17 09/19/17 Albuterol Sulf [Ventolin Hfa 1 - 2 puffs INH Q4HR PRN 09/19/17 09/19/17 Inhaler] Dextroamphetamine/Amphetamine 5 mg PO TID 09/19/17 09/19/17 [Dextroamp-Amphetamine 5 mg Tab] Furosemide [Furosemide] 40 mg PO DAILY 09/19/17 09/19/17 - Allergies Allergies/Adverse Reactions: Allergies Allergy/AdvReac Type Severity Reaction Status Date / Time avocado Allergy Nausea Verified 09/19/17 12:51 feathers Allergy Itching Verified 09/19/17 12:51 peach Allergy Itching Verified 09/19/17 12:51 Penicillins Allergy Unknown Verified 08/16/17 13:31 - Social History Does the pt smoke?: No Smoking Status: Former smoker Does the pt drink ETOH?: No Does the pt have substance abuse?: No - Immunizations Immunizations are current?: Yes PD ED PE NORMAL - Vitals Vital signs reviewed: Yes (tachy, tachpneic and hypertensive ) - General General: Alert and oriented X 3, Well developed/nourished, Other (The patient is gasping for breath. ) - HEENT HEENT: Atraumatic, PERRL, EOMI - Neck Neck: Supple, no meningeal sign, No bony TTP - Cardiac Cardiac: No murmur, Other (tachy to 120) - Respiratory Respiratory: Other (respiratory distress exemplified by tachypneia with visible work of breathing. There are diminished breath sounds in the base and rhonchi in the mid lung field on the right and light rhonchi in the left base. ) - Abdomen Abdomen: Soft, Non tender, Other (obese) - Back Back: No CVA TTP, No spinal TTP - Derm Derm: Normal color, Warm and dry, No rash - Extremities Extremities: No deformity, No edema - Neuro Neuro: Alert and oriented X 3, allopathic doctor 2-12 intact, No motor deficit, No sensory deficit, Normal speech Eye Opening: Spontaneous Motor: Obeys Commands Verbal: Oriented GCS Score: 15 - Psych Psych: Normal mood, Normal affect Results - Vitals Vitals: Vital Signs - 24 hr 09/19/17 09/19/17 09/19/17 11:54 12:41 12:55 Temperature 36.6 C Heart Rate 124 H 118 H 112 H Respiratory 24 26 H 31 H Rate Blood Pressure 172/91 H 127/84 H O2 Saturation 92 91 L 09/19/17 09/19/17 13:40 14:50 Temperature 36.6 C Heart Rate 134 H 111 H Respiratory 24 28 H Rate Blood Pressure 158/84 H 145/92 H O2 Saturation 91 L 92 Oxygen O2 Source Nasal cannula Oxygen Flow Rate 5 - EKG (time done) 1233 Rate: Rate (enter#) (117) Rhythm: Sinus tachycardia, LAE [place]: LAD QRS: Poor R wave progression Compare to prior EKG: Changed from prior EKG (SPT 5-23-18 rate has increased. ) Computer interpretation: Disagree with computer (I do not see lateral T wave abnormality) - Labs Labs: Laboratory Tests 09/19/17 09/19/17 09/19/17 12:37 12:37 12:37 WBC 18.5 H RBC 5.70 H Hgb 17.0 H Hct 52.0 H MCV 91.2 MCH 29.8 MCHC 32.6 RDW 14.8 Plt Count 340 MPV 7.9 Neut # (Auto) 16.4 H Lymph # (Auto) 0.9 L [place] # (Auto) 1.0 Eos # (Auto) 0.0 Baso # (Auto) 0.1 Absolute Nucleated RBC 0.01 Nucleated RBC % 0.1 Bld Gas Analysis Time Sample Site ABG pH ABG pCO2 ABG pO2 ABG HCO3 ABG Total CO2 ABG O2 Saturation ABG Oximetry Spot Check ABG Base Excess Rickey Test O2 Delivery Device O2 Liters/Min Sodium 137 Potassium 3.0 L Chloride 84 L Carbon Dioxide 39 H* Anion Gap 14.0 H BUN 36 H Creatinine 1.2 H Estimated GFR (MDRD) 45 L Glucose 168 H Lactic Acid Calcium 9.2 Total Bilirubin 1.3 H AST 44 H ALT 59 Alkaline Phosphatase 128 H Troponin I < 0.04 B-Natriuretic Peptide Total Protein 7.5 Albumin 3.6 Globulin 3.9 Albumin/Globulin Ratio 0.9 L Lipase 36 09/19/17 09/19/17 09/19/17 12:37 12:37 13:12 WBC RBC Hgb Hct MCV MCH MCHC RDW Plt Count MPV Neut # (Auto) Lymph # (Auto) [place] # (Auto) Eos # (Auto) Baso # (Auto) Absolute Nucleated RBC Nucleated RBC % Bld Gas Analysis Time 1318 Sample Site LEFT RADIAL ABG pH 7.49 H ABG pCO2 58 H ABG pO2 64 L ABG HCO3 43.5 H ABG Total CO2 45.3 H* ABG O2 Saturation 94 ABG Oximetry Spot Check 91 ABG Base Excess 16.5 H Rickey Test NEGATIVE O2 Delivery Device NASAL CANNULA O2 Liters/Min 5.00 Sodium Potassium Chloride Carbon Dioxide Anion Gap BUN Creatinine Estimated GFR (MDRD) Glucose Lactic Acid 2.0 Calcium Total Bilirubin AST ALT Alkaline Phosphatase Troponin I B-Natriuretic Peptide 49 Total Protein Albumin Globulin Albumin/Globulin Ratio Lipase - Rads (name of study) 2 veiw chest Radiology: Prelim report reviewed (Impression: Large right pleural effusion. Right lung consolidation could represent atelectasis or pneumonia.), EMP read indepedently, See rad report Procedures - IVC sono (time) 1220 Bedside IVC sono: IVC measures (cm) (1.27), IVC collapsed c insp (cm) (complete) , Dehydration (est 1 liter deficit) PD MEDICAL DECISION MAKING - ED course Complexity details: reviewed old records, reviewed results, re-evaluated patient , considered differential, d/w patient, d/w family ED course: 66 y/o female with recent admission for pneumonia improved after her hospitalization and has declined over the past 2 weeks and now is again short of breath and hypoxic despite the use of supplemental oxygen. She has some improvement with a respiratory treatment and has no breath sounds today on the right side. She is ultimately found to have a large pleural effusion on the right and she is admitted with respiratory failure with high CO2 and low O2. She has thoracentesis performed in DI on her way to the floor and has improvement with that. - Sepsis Event Vital Signs: Vital Signs - 24 hr 09/19/17 09/19/17 09/19/17 11:54 12:41 12:55 Temperature 36.6 C Heart Rate 124 H 118 H 112 H Respiratory 24 26 H 31 H Rate Blood Pressure 172/91 H 127/84 H O2 Saturation 92 91 L 09/19/17 09/19/17 13:40 14:50 Temperature 36.6 C Heart Rate 134 H 111 H Respiratory 24 28 H Rate Blood Pressure 158/84 H 145/92 H O2 Saturation 91 L 92 Oxygen O2 Source Nasal cannula Oxygen Flow Rate 5 Departure - Departure Disposition: 66 [facility] DC/Xfer Clinical Impression: Pleural effusion on right Respiratory failure Qualifiers: Chronicity: acute on chronic Respiratory failure complication: hypoxia and hypercapnia Qualified Code(s): J96.21 - Acute and chronic respiratory failure with hypoxia Discharge Date/Time: 09/19/17 16:49
[2017-09-19 12:46] LABS: BASOPHILS # (AUTO) 0.1 10^3/uL (0.0-0.1); BASOPHILS % (AUTO) 0.6 %; LYMPHOCYTES # (AUTO) 0.9 10^3/uL (1.5-3.5); LYMPHOCYTES % (AUTO) 5.1 %; MEAN CORPUSCULAR HEMOGLOBIN 29.8 pg (27.0-31.0); MEAN CORPUSCULAR HGB CONC 32.6 g/dL (32.0-36.0); MEAN CORPUSCULAR VOLUME 91.2 fL (81.0-99.0); MEAN PLATELET VOLUME 7.9 fL (7.9-10.8); MONOCYTES % (AUTO) 5.7 %; NEUTROPHILS # (AUTO) 16.4 10^3/uL (1.5-6.6); NEUTROPHILS % (AUTO) 88.6 %; PLT - PLATELET COUNT 340 10^3/uL (130-450); RED CELL DISTRIBUTION WIDTH 14.8 % (12.0-15.0); WHITE BLOOD COUNT 18.5 x10^3/uL (4.8-10.8)
[2017-09-19 13:02] LABS: ALBUMIN 3.6 g/dL (3.2-5.5); ALBUMIN/GLOBULIN RATIO 0.9 (1.0-2.2); BILIRUBIN,TOTAL 1.3 mg/dL (0.2-1.0); CALCIUM 9.2 mg/dL (8.5-10.3); CREATININE 1.2 mg/dL (0.4-1.0); TOTAL PROTEIN 7.5 g/dL (6.7-8.2)
--- NOTE | 2017-09-19 13:25 | XRAY Report ---
Procedure Date: 09/19/2017 Accession Number: [id number] / [id number] Procedure: XR - Chest 2 View X-Ray CPT Code: 73817 FULL RESULT: EXAM: CHEST RADIOGRAPHY EXAM DATE: 09/19/2017 12:53 PM. CLINICAL HISTORY: R mid lung rhonchi. COMPARISON: 08/21/2017. TECHNIQUE: 2 views. FINDINGS: Lungs/Pleura: There is a large right pleural effusion, increased from prior. Right mid and lower lung consolidation. Left lung is clear. No left pleural effusion. No pneumothorax. Mediastinum: Heart and mediastinal contours are unremarkable. Other: None. IMPRESSION: Large right pleural effusion. Right lung consolidation could represent atelectasis or pneumonia. RADIA
[2017-09-19] MEDS ORDERED: MORPHINE 2 MG/ML SYRINGE IVP STA (13:26)
[2017-09-19 13:28] LABS: ABG PCO2 58 mmHg (34-45); ABG PH 7.49 (7.35-7.45); ABG PO2 64 mmHg (80-100)
[2017-09-19 13:29] LABS: ABG HCO3 43.5 mmol/L (22.0-26.0)
[2017-09-19 13:30] LABS: ABG BASE EXCESS 16.5 mmol/L (-2.0-3.0); ABG OXYGEN SATURATION 94 % (94-98); ABG TCO2 45.3 MMOL/L (21.0-29.0); ALLEN TEST NEGATIVE
[2017-09-19] MEDS ORDERED: ONDANSETRON 4 MG/2 ML VIAL IVP PRN (14:54)
[2017-09-19] MEDS ORDERED: TEMAZEPAM 15 MG CAPSULE PO PRN (14:54)
[2017-09-19] MEDS ORDERED: IPRATROPIUM/ALBUTEROL 3 ML NEB INH PRN (14:58)
[2017-09-19] MEDS ORDERED: LORazepam 2 MG/ML VIAL IVP STA (15:30)
--- NOTE | 2017-09-19 16:22 | Ultrasound Report ---
Procedure Date: 09/19/2017 Accession Number: [id number] / [id number] Procedure: US - Thoracentesis Puncture CPT Code: FULL RESULT: EXAM: Thoracentesis Puncture DATE: 09/19/2017 4:18 PM CLINICAL HISTORY: R Pleural effusion Following obtaining informed consent, a suitable site on the patient's right posterior thorax was selected with ultrasound. The skin was prepped and draped in the usual sterile fashion. The skin and soft tissues were anesthetized with buffered lidocaine. A safety centesis catheter was inserted into the right pleural space, and approximately 2000 mL of fluid was removed without difficulty. The patient tolerated the procedure well. No immediate complications. IMPRESSION: Successful ultrasound-guided thoracentesis, yielding approximately 2000 mL of fluid. Fluid submitted to the lab.
[2017-09-19] MEDS ORDERED: BUFFERED LIDOCAINE 10 ML SYRINGE IU ONE (16:35)
[2017-09-19 17:40] LABS: CC,BF RBC 16243 /mm^3
[2017-09-19] MEDS: methylPREDNISolone SUCCINATE 125 MG/2 ML VIAL IVP SCH ×2 (17:41→21:45)
[2017-09-19] MEDS: SODIUM CHLORIDE FLUSH 0.9% 10 ML SYRINGE IVP SCH (17:41)
[2017-09-19 17:53] LABS: BF SOURCE PLEURAL
[2017-09-19 17:54] LABS: BF COLOR RED
--- NOTE | 2017-09-19 17:54 | XRAY Report ---
Procedure Date: 09/19/2017 Accession Number: [id number] / [id number] Procedure: XR - XR 2V Insp/Exp Post Thorac CPT Code: 89456 FULL RESULT: EXAM: CHEST RADIOGRAPHY, INSPIRATORY PHANI EXAM DATE: 09/19/2017 05:21 PM. CLINICAL HISTORY: Status post thoracentesis. COMPARISON: Earlier today at 1253. TECHNIQUE: 2 views, inspiratory and expiratory. FINDINGS: Lungs/Pleura: Interval right thoracentesis with removal of a large amount of right pleural fluid such that the superior half of the right lung is well aerated. Persistent opacification inferior half of right lung. Left lung remains clear. No pneumothorax. Mediastinum: Within exam limitations, the cardiomediastinal contour is normal. Other: None. IMPRESSION: 1. No postprocedural pneumothorax. 2. Markedly improved aeration right lung. RADIA
[2017-09-19 18:14] LABS: GLUCOSE, URINE (UA) NEGATIVE (NEGATIVE); KETONES,URINE (UA) NEGATIVE (NEGATIVE); LEUKOCYTE ESTERASE, URINE NEGATIVE (NEGATIVE); NITRITE,URINE NEGATIVE (NEGATIVE); OCCULT BLOOD,URINE NEGATIVE (NEGATIVE); PH,URINE 5.5 PH (5.0-7.5); PROTEIN,URINE NEGATIVE (NEGATIVE); UROBILINOGEN,URINE 0.2 (NORMAL) E.U./dL (NORMAL)
[2017-09-19 18:28] LABS: BILIRUBIN,URINE SMALL (NEGATIVE); CLARITY,URINE CLEAR (CLEAR); ICTOTEST,URINE POSITIVE
[2017-09-19 18:55] LABS: LYMPHOCYTES %,BODY FLUID 47; MACROPHAGES %,BODY FLUID 7 %; MESOTHELIAL %, BF 5 %
[2017-09-19] MEDS ORDERED: levoFLOXacin 500 MG/100 ML 500 MG/100 ML BAG IV ONE (19:00)
[2017-09-19] MEDS: CEFEPIME 2 GM in SODIUM CHLORIDE 0.9% MINIBAG 100 ML IV SCH (19:50)
[2017-09-19] MEDS: guaiFENesin 600 MG TABLET PO SCH (20:15)
[2017-09-19] MEDS: HYDROcod/ACETAM 5/325 MG TABLET PO PRN (20:40)
[2017-09-19] MEDS: SODIUM CHLORIDE FLUSH 0.9% 10 ML SYRINGE IVP PRN (21:45)
--- NOTE | 2017-09-19 22:22 | HISTORY & PHYSICAL EXAMINATION ---
DATE OF SERVICE: 09/19/2017 Physician: hSae Bustamante MD HISTORY OF PRESENT ILLNESS: This is a 66-year-old white female with a recent admission here for community-acquired pneumonia, COPD exacerbation, smoker who was trying to quit, discharged home on new nebulizers, home oxygen of 2 liters at rest and sleep and 4 liters with activity, inhalers, diuretics, and Medrol Dosepak. She states she got better for approximately 3-4 days and then started to get progressively worse, even worse than when she was admitted for the pneumonia. She also described severe weakness. She could not get up from the toilet without being severely short of breath and recovering for many minutes. With this, she presented to the emergency room and was found to have an infiltrate again as well as a new right-sided pleural effusion. as she is being admitted, she had an ultrasound-guided thoracentesis of the large pleural effusion and 2 liters of fluid was removed and she had markedly improved shortness of breath already. PAST MEDICAL HISTORY: PTSD. ADHD previously on Adderall, restarted at the last admission, she ran out, her dose has not yet been refilled by her new PCP. Chronic obstructive pulmonary disease and smoking history. Recent community-acquired pneumonia, on treatment in the inpatient setting, then she completed a course of outpatient antibiotics and steroids and has been on inhalers. O2 dependant since the last admission. Diastolic dysfunction by Echo last admission, and Lasix was started. ALLERGIES: AVOCADOS, FEATHERS, PEACHES, AND PENICILLIN. MEDICATIONS 1. Adderall 5 mg t.i.d. (she ran out 4 days ago). 2. Albuterol inhaler q.4h. p.r.n. 3. DuoNeb inhaler q.6h. p.r.n. 4. Lasix 40 mg daily. SOCIAL HISTORY: The patient is down to smoking one-quarter pack per day. She drinks no alcohol, uses no illicit drugs. The patient is disabled. She lives with her . REVIEW OF SYSTEMS: A comprehensive review of systems was performed and the pertinent positives are in the HPI, the rest are negative. She also notes a 30 lb weight loss since being on daily Lasix. PHYSICAL EXAMINATION VITAL SIGNS: Blood pressure 146/92, pulse of 117 in sinus rhythm, afebrile, room air saturation 88%, increased only to 90% on 5 liters nasal cannula. HEENT: Moist oral mucosa and is within normal limits. NECK: No JVD in the vertical position. No carotid bruits. CHEST: Diminished breath sounds on the right side with scattered wheeze in the right base posteriorly. Left side is clear. HEART: S1 and S2 normal. No audible murmurs. ABDOMEN: Soft, obese, nontender, normal bowel sounds. She has a large pannus. EXTREMITIES: No clubbing, cyanosis, edema. NEUROLOGIC: Grossly intact. LABORATORY DATA: Sodium 137, potassium 3.0, BUN 36, creatinine 1.2, lactic acid 2.0, AST 44, ALT 59. Troponin not detectable at less than 0.04. BNP normal at 49. White blood count 8.5 with a left shift, hemoglobin 17 with a normal MCV, platelet count normal. Urinalysis unremarkable. Blood gas pH 7.49, pCO2 58, pO2 64 with a saturation of 94%. Chest x-ray: large right pleural effusion and probable infiltrate. After thoracentesis, pleural effusion nearly entirely gone and no pneumothorax seen. IMPRESSION/DIAGNOSES 1. Right pleural effusion. This has already had thoracentesis by Interventional Radiology, on the way to her inpatient room from the ER. 2. Healthcare-associated pneumonia. 3. Chronic obstructive pulmonary disease exacerbation. O2 dependant for one month. 4. History of adult attention-deficit hyperactivity disorder. 5. History of posttraumatic stress disorder. PLAN: Start the patient on empiric antibiotics for healthcare-acquired pneumonia since she was just in a hospital setting 4 weeks ago, we will start cefepime and levofloxacin , on telemetry. Continue O2, nebulizers, IV steroids, Mucinex, incentive spirometry and daily chest x-rays to look for reaccumulation of the pleural fluid. Send the tapped pleural fluid for culture, pathology, cell count, pH, protein and glucose. Continue with her other medications, Adderall if it is brought in from home. CODE STATUS: DNR. DEEP VENOUS THROMBOSIS PROPHYLAXIS: Sequential compression devices. ATTESTATION: The patient is expected to be discharged or transferred to another facility within 96 hours: Yes. TD: 09/19/2017 19:36 DIANA
[2017-09-20] MEDS: SODIUM CHLORIDE FLUSH 0.9% 10 ML SYRINGE IVP SCH ×3 (00:27→18:05)
[2017-09-20] MEDS: HYDROcod/ACETAM 5/325 MG TABLET PO PRN ×3 (01:20→20:04)
[2017-09-20] MEDS: methylPREDNISolone SUCCINATE 125 MG/2 ML VIAL IVP SCH ×2 (06:05→14:58)
[2017-09-20] MEDS: SODIUM CHLORIDE FLUSH 0.9% 10 ML SYRINGE IVP PRN ×3 (06:06→22:17)
--- NOTE | 2017-09-20 07:37 | XRAY Report ---
Procedure Date: 09/20/2017 Accession Number: [id number] / [id number] Procedure: XR - Chest 1 View X-Ray CPT Code: 25011 FULL RESULT: EXAM: CHEST RADIOGRAPHY EXAM DATE: 09/20/2017 06:13 AM. CLINICAL HISTORY: F/U thoracentesis. COMPARISON: 09/19/2017. TECHNIQUE: 1 view. FINDINGS: Lungs/Pleura: Lung volumes are low, although slightly increased compared to the prior exam. There is a persistent moderate right pleural effusion and right basilar pulmonary opacity. Mild pulmonary vascular congestion is decreased compared to the prior exam. No pneumothorax. Mediastinum: Partially obscured. Within exam limitations, the cardiomediastinal contour is stable. Other: No acute osseous abnormality. IMPRESSION: 1. Moderate right pleural effusion and right basilar opacity, similar to prior. No pneumothorax. 2. Lung volumes are increased compared to the prior exam but remain low. 3. Mild pulmonary vascular congestion is decreased compared to prior. RADIA
[2017-09-20] MEDS: CEFEPIME 2 GM in SODIUM CHLORIDE 0.9% MINIBAG 100 ML IV SCH ×2 (08:57→20:07)
[2017-09-20] MEDS: guaiFENesin 600 MG TABLET PO SCH ×2 (08:58→22:16)
[2017-09-20] MEDS: POLYETHYLENE GLYCOL 3350 17 GM PACKET PO SCH (08:58)
[2017-09-20] MEDS: FAMOTIDINE 20 MG TABLET PO SCH (08:58)
[2017-09-20] MEDS ORDERED: POTASSIUM CHLORIDE 20 MEQ TABLET PO SCH (09:07)
[2017-09-20 09:23] LABS: BASOPHILS # (AUTO) 0.1 10^3/uL (0.0-0.1); BASOPHILS % (AUTO) 0.6 %; HGB - HEMOGLOBIN 15.1 g/dL (12.0-16.0); LYMPHOCYTES # (AUTO) 0.6 10^3/uL (1.5-3.5); LYMPHOCYTES % (AUTO) 2.9 %; MEAN CORPUSCULAR HEMOGLOBIN 29.3 pg (27.0-31.0); MEAN CORPUSCULAR VOLUME 91.6 fL (81.0-99.0); MEAN PLATELET VOLUME 8.1 fL (7.9-10.8); MONOCYTES # (AUTO) 0.7 10^3/uL (0.0-1.0); MONOCYTES % (AUTO) 3.5 %; NEUTROPHILS # (AUTO) 19.7 10^3/uL (1.5-6.6); PLT - PLATELET COUNT 271 10^3/uL (130-450); RED BLOOD COUNT 5.16 10^6/uL (4.20-5.40); RED CELL DISTRIBUTION WIDTH 14.8 % (12.0-15.0); WHITE BLOOD COUNT 21.2 x10^3/uL (4.8-10.8)
[2017-09-20 09:33] LABS: CALCIUM 8.8 mg/dL (8.5-10.3); CREATININE 1.3 mg/dL (0.4-1.0); MAGNESIUM 2.4 mg/dL (1.7-2.8)
[2017-09-20 09:49] LABS: PLATELET ESTIMATE, MANUAL NORMAL (130-450,000) (NORMAL); PLATELET MORPHOLOGY RARE LARGE PLATELETS (NORMAL); RBC MORPHOLOGY (MULTIPLE) NORMAL APPEARANCE (NORMAL)
[2017-09-20] MEDS ORDERED: IOPAMIDOL-300 100 ML VIAL ONE (14:25)
[2017-09-20] MEDS ORDERED: LORazepam 2 MG/ML VIAL IVP STA (14:54)
[2017-09-20] MEDS: [UNRECOGNIZED DRUG - OTHER] PO SCH ×2 (14:58→22:16)
[2017-09-20] MEDS ORDERED: IOPAMIDOL-300 100 ML VIAL IVP ONE (16:03)
--- NOTE | 2017-09-20 16:40 | CT Report ---
Procedure Date: 09/20/2017 Accession Number: [id number] / [id number] Procedure: CT - Chest W/ CPT Code: FULL RESULT: EXAM: CT CHEST WITH CONTRAST. EXAM DATE: 09/20/2017 04:00 PM. CLINICAL HISTORY: Follow up recurrent pleural effusion, pneumonia. COMPARISONS: None. TECHNIQUE: Routine helical CT imaging was performed through the chest. IV contrast: 40 cc Isovue-300. Reconstructions: Coronal and sagittal. In accordance with CT protocol optimization, one or more of the following dose reduction techniques were utilized for this exam: automated exposure control, adjustment of mA and/or KV based on patient size, or use of iterative reconstructive technique. FINDINGS: Lungs/Pleura: 3 mm calcified granuloma left posterior lung base. Left lung is otherwise clear. No pneumothorax. No vascular congestion. Moderately large simple appearing right pleural effusion. Moderate narrowing of the right bronchus intermedius. Peripheral reticulonodular infiltrates involving the apical and anterior segments right upper lobe. Right upper lobe is otherwise relatively well aerated. Complete atelectasis of the right lower lobe. Complete consolidation of the right middle lobe with only mild volume loss, extending to the right hilum. Mediastinum: Mild cardiomegaly. Extensive right hilar adenopathy. Multiple moderately enlarged mediastinal lymph nodes. No left hilar adenopathy. Thoracic aorta is of normal caliber without dissection. Bones: No bony metastatic disease. Visualized Abdomen: Partial visualization of a 4 cm solid left renal mass. Moderate hyperplasia and nodularity of both adrenal glands. Other: None. IMPRESSION: 1. Probable left renal cell carcinoma. 2. Constellation of right hemithorax findings worrisome for malignant postobstructive process, possibly due to a right middle lobe neoplasm although discrete mass not identified. 3. Moderate right pleural effusion. 4. Mild cardiomegaly. 5. Extensive right hilar and mediastinal adenopathy. RADIA
[2017-09-20] MEDS: levoFLOXacin 500 MG/100 ML 500 MG/100 ML BAG IV SCH (18:05)
--- NOTE | 2017-09-20 19:57 | PROVIDER PROGRESS NOTE ---
Assessment/Plan - Problem List (1) Pleural effusion on right Assessment/Plan: The effusion re-accumulated to moderate since thoracentesis yesterday evening. CT of the chest was ordered prior to a chest tube or repeat thoracentesis, and that showed a mass around a bronchus, probable post-obstructive pneumonia, moderate pleural effusion and a R kidney mass consistent with Renal Cell Cancer. I described the findings to patient and later to patient and her daughter at bedside. I advise [facility]oscopy with biopsy and possible kidney biopsy and chest tube drainage and management of her cancer. She is agreeable and will consider where she prefers to be transferred to. (3) COPD exacerbation Assessment/Plan: Pt feels better with less SOB and no wheezing on exam. She has never had formal PFTs, since she only came to seek medical attention for her lungs 1 mo ago. Continue nebs, Mucinex. Will decrease iv steroids due to clinical improvement and marked elevation of WBC since on 125 mg iv tid. (4) Right renal mass Assessment/Plan: New finding by CT imaging today. Will plan for further nephrology W/U at same location where she needs further pulmonary management of pulmonary mass. Probable transfer tomorrow. (5) PTSD (post-traumatic stress disorder) Assessment/Plan: Pt has adderrall from home and will dose it 5 mg po tid. (6) Hypokalemia Assessment/Plan: Liklely from Lasix use for the past 4 weeks. Will replace. Monitor daily K. (7) Hyponatremia Assessment/Plan: Likely from Lasix use diligently for the past 4 weeks but cannot R/O SIADH from a pulmonary carcinoma. No salt restriction in her diet. Monitor BMP daily. - Current Meds Current Meds: Current Medications Generic Name Dose Route Start Last Admin Trade Name Freq PRN Reason Stop Dose Admin Hydrocodone Bitart/Acetaminophen 1 tab 09/19/17 14:54 09/20/17 06:05 [place] 5/325 PO 1 tab Q4HR PRN Administration Pain 5 to 7 Famotidine 20 mg 09/20/17 09:00 09/20/17 08:58 Pepcid PO 20 mg DAILY RONNY Administration Guaifenesin 600 mg 09/19/17 21:00 09/20/17 08:58 Mucinex PO 600 mg BID RONNY Administration Cefepime HCl 2 gm/ Sodium 100 mls @ 200 mls/hr 09/19/17 20:00 09/20/17 09:30 Chloride IV Infused Q12H RONNY Infusion Levofloxacin 500 mg in 100 mls @ 100 mls/hr 09/20/17 17:00 09/20/17 18:37 Levaquin 500 Mg/100 Ml IV Infused DAILY@1700 RONNY Infusion Dextroamp- 1 each 09/20/17 14:00 09/20/17 14:58 Amphetamine 5 Mg Tab PO 1 each TID RONNY Administration Polyethylene Glycol 17 gm 09/20/17 09:00 09/20/17 08:58 Miralax PO 17 gm DAILY RONNY Administration Potassium Chloride 40 meq 09/20/17 09:07 09/20/17 11:50 K-Dur PO 40 meq DAILYWM RONNY Administration Sodium Chloride 10 ml 09/19/17 14:54 09/20/17 06:06 Normal Saline Flush 0.9% IVP 10 ml PRN PRN Administration NEEDED PER PROVIDER ORDERS Sodium Chloride 10 ml 09/19/17 17:00 09/20/17 18:05 Normal Saline Flush 0.9% IVP 10 ml 0100,0900,1700 RONNY Administration Temazepam 15 mg 09/19/17 14:54 09/20/17 00:27 Restoril PO 15 mg QPM PRN Administration Insomnia - Lab Result Fish Bone Diagrams: 09/20/17 09:19 09/20/17 09:19 - Additional Planning My Orders: My Active Orders 09/19/17 19:52 Miscellaneous Laboratory Order [LAB] Urgent 09/19/17 20:00 Cefepime 2 gm Sodium Chloride 0.9% Minibag [Normal Saline 0.9% Minibag] 100 ml IV Q12H 09/19/17 20:46 Nebulizer [Nebulizer/MDI Tx.] [RC] .Q6prn 09/19/17 21:00 guaiFENesin [Mucinex] 600 mg PO BID 09/20/17 Consult [General Surgery Consult] [CONS] Routine 09/20/17 09:07 Potassium Chloride [K-Dur] 40 meq PO DAILYWM 09/20/17 14:00 Patient Own Controlled 1 each PO TID 09/20/17 17:00 levoFLOXacin 500 MG/100 ML [Levaquin 500 mg/100 ml] 500 mg in 100 ml IV DAILY@ 1700 09/20/17 17:26 methylPREDNISolone SUCCINATE [SOLU-Medrol (40MG VIAL)] 40 mg IVP TID 09/20/17 Dinner DIET [Regular Diet] [DIET] 09/21/17 05:00 BMP - BASIC METABOLIC PANEL [CHEM] DAILYLAB CBC - COMP BLD CT W/AUTO DIFF [HEME] DAILYLAB MAGNESIUM [CHEM] DAILYLAB 09/21/17 09:00 Chest 1 View X-Ray [XR] DAILY 09/22/17 05:00 BMP - BASIC METABOLIC PANEL [CHEM] DAILYLAB CBC - COMP BLD CT W/AUTO DIFF [HEME] DAILYLAB MAGNESIUM [CHEM] DAILYLAB 09/22/17 09:00 Chest 1 View X-Ray [XR] DAILY Subjective - Subjective Patient Reports: Feeling Better, Resting Comfortably Objective Vital Signs: Vital Signs - 24 hr 09/19/17 09/20/17 09/20/17 20:45 00:00 05:00 Temperature 36.4 C L 36.1 C L 36.3 C L Heart Rate [ 117 H Apical] Heart Rate [ 101 H 94 Brachial] Respiratory 22 18 18 Rate Blood Pressure 130/84 H 134/88 H 129/82 H [Left Brachial artery] O2 Saturation 91 L 94 92 09/20/17 09/20/17 09/20/17 08:03 12:54 16:00 Temperature 36.4 C L 36.3 C L 36.4 C L Heart Rate [ 89 Apical] Heart Rate [ 89 100 101 H Brachial] Respiratory 19 24 22 Rate Blood Pressure 137/81 H 128/85 H 134/72 H [Left Brachial artery] O2 Saturation 98 92 93 Oxygen O2 Source Nasal cannula I&O (Last 24 Hrs): Intake and Output Totals x24h 09/18/17 09/19/17 09/20/17 23:59 23:59 23:59 Intake Total 940 1400 Output Total 625 2 Balance 315 1398 General: Alert, Oriented x3 HEENT: Mucous membr. moist/pink Neck: Supple, No JVD Neuro: Non Focal Cardiovascular: Regular rate, No murmurs Respiratory: Other (R bas diminished, R mid-lung rales, L clear. No wheezing.) Abdomen: Other (Obese with pannus.) Extremities: No edema - Results Results: Laboratory Results WBC 21.2 x10^3/uL (4.8-10.8) H 09/20/17 09:19 RBC 5.16 10^6/uL (4.20-5.40) 09/20/17 09:19 Hgb 15.1 g/dL (12.0-16.0) 09/20/17 09:19 Hct 47.2 % (37.0-47.0) H 09/20/17 09:19 MCV 91.6 fL (81.0-99.0) 09/20/17 09: MCH 29.3 pg (27.0-31.0) 09/20/17 09: MCHC 32.0 g/dL (32.0-36.0) 09/20/17 09: RDW 14.8 % (12.0-15.0) 09/20/17 09:19 Plt Count 271 10^3/uL (130-450) 09/20/17 09:19 MPV 8.1 fL (7.9-10.8) 09/20/17 09:19 Neut # (Auto) 19.7 10^3/uL (1.5-6.6) H 09/20/17 09:19 Lymph # (Auto) 0.6 10^3/uL (1.5-3.5) L 09/20/17 09:19 Bryan # (Auto) 0.7 10^3/uL (0.0-1.0) 09/20/17 09:19 Eos # (Auto) 0.0 10^3/uL (0.0-0.7) 09/20/17 09:19 Baso # (Auto) 0.1 10^3/uL (0.0-0.1) 09/20/17 09:19 Absolute Nucleated RBC 0.01 x10^3/uL 09/20/17 09: Nucleated RBC % 0.0 /100WBC 09/20/17 09:19 Manual Slide Review Indicated 09/20/17 09:19 WBC Morphology (NORMAL) 09/20/17 09: Platelet Estimate NORMAL (130-450,000) (NORMAL) 09/20/17 09: Platelet Morphology RARE LARGE PLATELETS (NORMAL) 09/20/17: RBC Morph Micro Appear NORMAL APPEARANCE (NORMAL) 09/20/17 09:19 Bld Gas Analysis Time 1318 09/19/17 13:12 Sample Site LEFT RADIAL 09/19/17 13:12 ABG pH 7.49 (7.35-7.45) H 09/19/17 13:12 ABG pCO2 58 mmHg (34-45) H 09/19/17 13:12 ABG pO2 64 mmHg (80-100) L 09/19/17 13:12 ABG HCO3 43.5 mmol/L (22.0-26.0) H 09/19/17 13:12 ABG Total CO2 45.3 MMOL/L (21.0-29.0) H* 09/19/17 13:12 ABG O2 Saturation 94 % (94-98) 09/19/17 13:12 ABG Oximetry Spot Check 91 % 09/19/17 13:12 ABG Base Excess 16.5 mmol/L (-2.0-3.0) H 09/19/17 13:12 Rickey Test NEGATIVE 09/19/17 13:12 O2 Delivery Device NASAL CANNULA 09/19/17 13:12 O2 Liters/Min 5.00 LPM 09/19/17 13:12 Sodium 131 mmol/L (135-145) L 09/20/17 09:19 Potassium 3.0 mmol/L (3.5-5.0) L 09/20/17 09:19 Chloride 82 mmol/L (101-111) L 09/20/17 09:19 Carbon Dioxide 37 mmol/L (21-32) H 09/20/17 09:19 Anion Gap 12.0 (6-13) 09/20/17 09:19 BUN 50 mg/dL (6-20) H 09/20/17 09:19 Creatinine 1.3 mg/dL (0.4-1.0) H 09/20/17 09:19 Estimated GFR (MDRD) 41 (>89) L 09/20/17 09:19 Glucose 295 mg/dL (70-100) H 09/20/17 09:19 Lactic Acid 1.9 mmol/L (0.5-2.2) 09/19/17 19:46 Calcium 8.8 mg/dL (8.5-10.3) 09/20/17 09:19 Magnesium 2.4 mg/dL (1.7-2.8) 09/20/17 09:19 Total Bilirubin 1.3 mg/dL (0.2-1.0) H 09/19/17 12:37 AST 44 IU/L (10-42) H 09/19/17 12:37 ALT 59 IU/L (10-60) 09/19/17 12:37 Alkaline Phosphatase 128 IU/L (42-121) H 09/19/17 12:37 Troponin I < 0.04 ng/mL (<0.49) 09/19/17 12:37 B-Natriuretic Peptide 49 pg/mL (5-100) 09/19/17 12:37 Total Protein 7.5 g/dL (6.7-8.2) 09/19/17 12:37 Albumin 3.6 g/dL (3.2-5.5) 09/19/17 12:37 Globulin 3.9 g/dL (2.1-4.2) 09/19/17 12:37 Albumin/Globulin Ratio 0.9 (1.0-2.2) L 09/19/17 12:37 Lipase 36 U/L (22-51) 09/19/17 12:37 Urine Color YELLOW 09/19/17 17:48 Urine Clarity CLEAR (CLEAR) 09/19/17 17:48 Urine pH 5.5 PH (5.0-7.5) 09/19/17 17:48 Ur Specific Molina 1.025 (1.002-1.030) 09/19/17 17:48 Urine Protein NEGATIVE mg/dL (NEGATIVE) 09/19/17 17:48 Urine Glucose (UA) NEGATIVE mg/dL (NEGATIVE) 09/19/17 17:48 Urine Ketones NEGATIVE mg/dL (NEGATIVE) 09/19/17 17:48 Urine Occult Blood NEGATIVE (NEGATIVE) 09/19/17 17:48 Urine Nitrite NEGATIVE (NEGATIVE) 09/19/17 17:48 Urine Bilirubin SMALL (NEGATIVE) H 09/19/17 17:48 Urine Urobilinogen 0.2 (NORMAL) E.U./dL (NORMAL) 09/19/17 17:48 Ur Leukocyte Esterase NEGATIVE (NEGATIVE) 09/19/17 17:48 Ur Microscopic Review NOT INDICATED 09/19/17 17:48 Urine Culture Comments NOT INDICATED 09/19/17 17:48 Fluid Source PLEURAL 06/26/18 16:10 Fluid Color RED 09/19/17 16:10 Fluid Clarity HAZY 09/19/17 16:10 Fluid WBC 1340 /mm^3 09/19/17 16:10 Fluid RBC 95391 /mm^3 09/19/17 16:10 Fluid Neutrophils % 3 % 09/19/17 16:10 Fluid Lymphocytes % 47 09/19/17 16:10 Fluid Macrophages % 7 % 09/19/17 16:10 Fld Mesothelial Cell % 5 % 09/19/17 16:10 Fluid Other Cells % 38 % 09/19/17 16:10 ABX Reporting Has patient been on IV antibiotics over the past 48 hours?: Yes
[2017-09-20] MEDS: methylPREDNISolone SUCCINATE 40 MG/ML VIAL IVP SCH (22:15)
[2017-09-20] MEDS: IPRATROPIUM/ALBUTEROL 3 ML NEB INH SCH (22:22)
[2017-09-20] MEDS: BUTALB/ACETAM/CAFF 50/325/40MG TABLET PO PRN (22:36)
[2017-09-21] MEDS: HYDROcod/ACETAM 5/325 MG TABLET PO PRN ×4 (00:22→19:51)
[2017-09-21] MEDS: SODIUM CHLORIDE FLUSH 0.9% 10 ML SYRINGE IVP SCH ×3 (02:21→17:26)
[2017-09-21] MEDS ORDERED: BUTALB/ACETAM/CAFF 50/325/40MG TABLET PO SCH (03:30)
[2017-09-21 05:21] LABS: BASOPHILS % (AUTO) 0.1 %; HGB - HEMOGLOBIN 14.6 g/dL (12.0-16.0); LYMPHOCYTES % (AUTO) 4.2 %; MEAN CORPUSCULAR HEMOGLOBIN 29.8 pg (27.0-31.0); MEAN CORPUSCULAR HGB CONC 32.8 g/dL (32.0-36.0); MEAN CORPUSCULAR VOLUME 90.7 fL (81.0-99.0); MEAN PLATELET VOLUME 8.2 fL (7.9-10.8); MONOCYTES % (AUTO) 5.5 %; NEUTROPHILS % (AUTO) 90.2 %; PLT - PLATELET COUNT 267 10^3/uL (130-450); RED BLOOD COUNT 4.91 10^6/uL (4.20-5.40); RED CELL DISTRIBUTION WIDTH 14.5 % (12.0-15.0); WHITE BLOOD COUNT 20.6 x10^3/uL (4.8-10.8)
[2017-09-21 05:27] LABS: ABNORMAL LYMPHS % (MANUAL) 0 %
[2017-09-21 05:31] LABS: CALCIUM 8.7 mg/dL (8.5-10.3); CREATININE 1.4 mg/dL (0.4-1.0); MAGNESIUM 2.4 mg/dL (1.7-2.8)
[2017-09-21] MEDS: [UNRECOGNIZED DRUG - OTHER] PO SCH ×3 (05:50→21:20)
[2017-09-21] MEDS: methylPREDNISolone SUCCINATE 40 MG/ML VIAL IVP SCH ×3 (05:50→21:16)
[2017-09-21] MEDS: SODIUM CHLORIDE FLUSH 0.9% 10 ML SYRINGE IVP PRN ×2 (05:50→21:16)
[2017-09-21 06:31] LABS: BAND NEUTROPHILS % (MANUAL) 1 %; DIFFERENTIAL COMMENT MANUAL DIFFERENTIAL; LYMPHOCYTES % (MANUAL) 5 %; MONOCYTES # (MANUAL) 2.3 10^3/uL (0.0-1.0); NEUTROPHILS # (MANUAL) 17.3 10^3/uL (1.5-6.6); NEUTROPHILS % (MANUAL) 83 %; PLATELET ESTIMATE, MANUAL NORMAL (130-450,000) (NORMAL); RBC MORPHOLOGY (MULTIPLE) NORMAL APPEARANCE (NORMAL)
[2017-09-21] MEDS ORDERED: SODIUM CHLORIDE 1 GM TABLET PO SCH (09:00)
[2017-09-21] MEDS: IPRATROPIUM/ALBUTEROL 3 ML NEB INH SCH ×3 (09:04→21:08)
--- NOTE | 2017-09-21 09:07 | XRAY Report ---
Procedure Date: 09/21/2017 Accession Number: [id number] / [id number] Procedure: XR - Chest 1 View X-Ray CPT Code: 72543 FULL RESULT: EXAM: Chest 1 View X-Ray DATE: 09/21/2017 8:47 AM CLINICAL HISTORY: F/U thoracentesis COMPARISON: 09/20/2017 TECHNIQUE: Single view of the chest. FINDINGS: Lungs/Pleura: Stable right basilar infiltrate and right effusion. Mediastinum: Within exam limitations, cardiomediastinal contour is normal. Other: None. IMPRESSION: Stable right basilar infiltrate and right effusion. No significant interval change. RADIA
[2017-09-21] MEDS: D5.45NS W/20 MEQ KCL 1,000 ML IV SCH ×2 (09:58→20:53)
[2017-09-21] MEDS: FAMOTIDINE 20 MG TABLET PO SCH (09:58)
[2017-09-21] MEDS: CEFEPIME 2 GM in SODIUM CHLORIDE 0.9% MINIBAG 100 ML IV SCH ×2 (09:58→19:51)
[2017-09-21] MEDS: guaiFENesin 600 MG TABLET PO SCH ×2 (09:58→21:16)
[2017-09-21] MEDS: POLYETHYLENE GLYCOL 3350 17 GM PACKET PO SCH (09:59)
[2017-09-21] MEDS: POTASSIUM CHLORIDE 20 MEQ TABLET PO SCH ×2 (10:08→17:26)
[2017-09-21] MEDS: levoFLOXacin 500 MG/100 ML 500 MG/100 ML BAG IV SCH (17:26)
--- NOTE | 2017-09-21 17:47 | PROVIDER PROGRESS NOTE ---
Subjective - Prog Note Date Prog Note Date: 09/21/17 Prog Note Time: 15:00 - Subjective Pt reports feeling: Improved (Patient says she is having much easier time breathing. She is also feeling stronger. She was able to walk to the bathroom today and also to take a shower. She denies any fevers or chills or chest pain. ) Current Medications - Current Medications Current Medications: Active Medications Generic Name Dose Route Start Last Admin Trade Name Freq PRN Reason Stop Dose Admin Acetaminophen/Butalbital/Caffeine 1 tab 09/20/17 21:38 09/20/17 22:36 Fioricet PO 1 tab Q4HR PRN Administration HEADACHE Hydrocodone Bitart/Acetaminophen 1 tab 09/19/17 14:54 09/21/17 15:30 [place] 5/325 PO 1 tab Q4HR PRN Administration Pain 5 to 7 Albuterol/Ipratropium 3 ml 09/20/17 22:00 09/21/17 16:42 Duoneb INH 3 ml TID RONNY Administration Famotidine 20 mg 09/20/17 09:00 09/21/17 09:58 Pepcid PO 20 mg DAILY RONNY Administration Guaifenesin 600 mg 09/19/17 21:00 09/21/17 09:58 Mucinex PO 600 mg BID RONNY Administration Cefepime HCl 2 gm/ Sodium 100 mls @ 200 mls/hr 09/19/17 20:00 09/21/17 10:25 Chloride IV Infused Q12H RONNY Infusion Levofloxacin 500 mg in 100 mls @ 100 mls/hr 09/20/17 17:00 09/21/17 17:26 Levaquin 500 Mg/100 Ml IV 100 mls/hr DAILY@1700 RONNY Administration Potassium Chloride/Dextrose/Sod Cl 1,000 mls @ 80 mls/hr 09/21/17 09:00 09/21 09:58 D5.45ns W/20 Meq Kcl IV 80 mls/hr .[id number] RONNY Administration Methylprednisolone 40 mg 09/20/17 17:26 09/21/17 13:23 Solu-Medrol (40mg Vial) IVP 40 mg TID RONNY Administration Ondansetron HCl 4 mg 09/19/17 14:54 Zofran Inj IVP Q6HR PRN Nausea / Vomiting Dextroamp- 1 each 09/20/17 14:00 09/21/17 13:23 Amphetamine 5 Mg Tab PO 1 each TID RONNY Administration Polyethylene Glycol 17 gm 09/20/17 09:00 09/21/17 09:59 Miralax PO Not Given DAILY RONNY Potassium Chloride 20 meq 09/21/17 08:11 09/21/17 17:26 K-Dur PO 20 meq BIDWM RONNY Administration Sodium Chloride 10 ml 09/19/17 14:54 09/21/17 05:50 Normal Saline Flush 0.9% IVP 10 ml PRN PRN Administration NEEDED PER PROVIDER ORDERS Sodium Chloride 10 ml 09/19/17 17:00 09/21/17 17:26 Normal Saline Flush 0.9% IVP 10 ml 0100,0900,1700 RONNY Administration Sodium Chloride 1 gm 09/21/17 09:00 09/21/17 10:08 Salt Tab PO 1 gm DAILY RONNY Administration Temazepam 15 mg 09/19/17 14:54 09/20/17 00:27 Restoril PO 15 mg QPM PRN Administration Insomnia Albuterol Sulf [Ventolin Hfa Inhaler] 1 - 2 puffs INH Q4HR PRN 09/19/17 Dextroamphetamine/Amphetamine [Dextroamp-Amphetamine 5 mg Tab] 5 mg PO TID 09/19 Furosemide [Furosemide] 40 mg PO DAILY 09/19/17 Objective - Vital Signs/Intake & Output Reviewed Vital Signs: Yes Vital Signs: Vital Signs x48h Temp Pulse Pulse Resp BP BP Pulse Ox 09/21/17 16:42 101 H 16 09/21/17 16:00 36.3 C L 100 22 128/94 H 93 09/21/17 10:09 36.9 C 113 H 20 146/82 H 93 Intake & Output: Intake & Output 09/18/17 09/19/17 09/20/17 09/21/17 23:59 23:59 23:59 23:59 Intake Total 940 1500 1030 Output Total 625 2 Balance 315 1498 1030 - Objective General Appearance: positive: No acute distress, Alert Eyes Bilateral: positive: Normal inspection, PERRL, EOMI, No lid inflammation, Conjunctivae nml, No scleral icterus ENT: positive: ENT inspection nml, Pharynx nml, No signs of dehydration Neck: positive: Nml inspection, Thyroid nml, No JVD, Trachea midline. negative : Thyromegaly Respiratory: positive: Chest non-tender, No respiratory distress, Breath sounds nml. negative: Wheezes, Rales, Rhonchi Cardiovascular: positive: Regular rate & rhythm, No murmur, No gallop Abdomen: positive: Non-tender, No organomegaly, Nml bowel sounds, No distention. negative: Guarding, Rebound Back: positive: Nml inspection. negative: CVA tenderness (R), CVA tenderness (L ) Skin: positive: Color nml, No rash, Warm, Dry. negative: Cyanosis Extremities: positive: Non-tender, Full ROM, Nml appearance, No pedal edema Neurologic/Psychiatric: positive: Oriented x3, CN's nml (2-12), Motor nml, Sensation nml, Mood/affect nml - Lab Results Fish Bones: 09/21/17 04:55 09/21/17 04:55 Other Labs: Lab Results x24hrs 09/21/17 09/21/17 09/19/17 Range/Units 04:55 04:55 16:10 Specimen Type PLUERAL FLUID SLIDE WBC 20.6 H (4.8-10.8) x10^3/uL RBC 4.91 (4.20-5.40) 10^6/uL Hgb 14.6 (12.0-16.0) g/dL Hct 44.5 (37.0-47.0) % MCV 90.7 (81.0-99.0) fL MCH 29.8 (27.0-31.0) pg MCHC 32.8 (32.0-36.0) g/dL RDW 14.5 (12.0-15.0) % Plt Count 267 (130-450) 10^3/uL MPV 8.2 (7.9-10.8) fL Neut # (Auto) Not Reportable Lymph # (Auto) Not Reportable Lee # (Auto) Not Reportable Eos # (Auto) Not Reportable Baso # (Auto) Not Reportable Absolute Nucleated RBC Not Reportable Total Counted 100 Band Neuts % (Manual) 1 (0 - 10) % Abnorm Lymph % (Manual) 0 % Nucleated RBC % Not Reportable Neutrophils # (Manual) 17.3 H (1.5-6.6) 10^3/uL Lymphocytes # (Manual) 1.0 L (1.5-3.5) 10^3/uL Monocytes # (Manual) 2.3 H (0.0-1.0) 10^3/uL Eosinophils # (Manual) 0.0 (0-0.7) 10^3/uL Basophils # (Manual) 0.0 (0-0.1) 10^3/uL Differential Comment MANUAL DIFFERENTIAL Pathologist Review SEE SEPARATE REPORT Platelet Estimate NORMAL (130-450,000) (NORMAL) RBC Morph Micro Appear NORMAL APPEARANCE (NORMAL) Sodium 129 L (135-145) mmol/L Potassium 3.2 L (3.5-5.0) mmol/L Chloride 83 L (101-111) mmol/L Carbon Dioxide 34 H (21-32) mmol/L Anion Gap 12.0 (6-13) BUN 57 H (6-20) mg/dL Creatinine 1.4 H (0.4-1.0) mg/dL Estimated GFR (MDRD) 38 L (>89) Glucose 202 H (70-100) mg/dL Calcium 8.7 (8.5-10.3) mg/dL Magnesium 2.4 (1.7-2.8) mg/dL Slides for Path Review PATH SLIDE REVIEW - Diagnostic Imaging Diagnostic Imaging Results: positive: Final report reviewed Diagnostic Imaging Comments: EXAM: Chest 1 View X-Ray DATE: 09/21/2017 8:47 AM CLINICAL HISTORY: F/U thoracentesis COMPARISON: 09/20/2017 TECHNIQUE: Single view of the chest. FINDINGS: Lungs/Pleura: Stable right basilar infiltrate and right effusion. Mediastinum: Within exam limitations, cardiomediastinal contour is normal. Other: None. IMPRESSION: Stable right basilar infiltrate and right effusion. No significant interval change. ABX Reporting Has patient been on IV antibiotics over the past 48 hours?: Yes Assessment/Plan - Problem List (1) Postobstructive pneumonia Impression: We are currently treating the patient with cefepime and we have seen a very slight improvement in her leukocyte count which has come down from 21,000-20, 000. She says she feels much better clinically, and says that she is no longer nearly as short of breath as she was when she first came in. She is also feeling more strength and her appetite is improving although it still not great. She says she slept well last night. At this time the plan is to transfer the patient to the [facility] for further testing and treatment. (2) Lung mass Impression: CT showed a right middle lobe mass and a constellation of symptoms worrisome for postobstructive pneumonia. Additionally appears to be a left renal cell carcinoma seen on CT. The plan is to transfer the patient to the [facility] for further testing and treatment options. (3) COPD (chronic obstructive pulmonary disease) Impression: At this time we are giving the patient steroids and bronchodilators. She is showing improvement clinically. Continue present care. Qualifiers: COPD type: COPD with acute exacerbation Qualified Code(s): J44.1 - Chronic obstructive pulmonary disease with (acute) exacerbation
[2017-09-21] MEDS: BUTALB/ACETAM/CAFF 50/325/40MG TABLET PO PRN (20:13)
[2017-09-22] MEDS: D5.45NS W/20 MEQ KCL 1,000 ML IV SCH ×2 (02:18→15:24)
[2017-09-22] MEDS: SODIUM CHLORIDE FLUSH 0.9% 10 ML SYRINGE IVP SCH ×3 (02:19→16:08)
[2017-09-22] MEDS: HYDROcod/ACETAM 5/325 MG TABLET PO PRN ×4 (02:33→21:23)
[2017-09-22] MEDS: BUTALB/ACETAM/CAFF 50/325/40MG TABLET PO PRN ×4 (02:50→21:23)
[2017-09-22 05:12] LABS: CALCIUM 8.7 mg/dL (8.5-10.3); CREATININE 1.1 mg/dL (0.4-1.0); MAGNESIUM 2.3 mg/dL (1.7-2.8)
[2017-09-22 05:23] LABS: BASOPHILS % (AUTO) 0.1 %; HGB - HEMOGLOBIN 14.1 g/dL (12.0-16.0); LYMPHOCYTES # (AUTO) 0.6 10^3/uL (1.5-3.5); LYMPHOCYTES % (AUTO) 3.6 %; MEAN CORPUSCULAR HEMOGLOBIN 29.4 pg (27.0-31.0); MEAN CORPUSCULAR HGB CONC 32.6 g/dL (32.0-36.0); MEAN CORPUSCULAR VOLUME 90.2 fL (81.0-99.0); MEAN PLATELET VOLUME 8.4 fL (7.9-10.8); MONOCYTES # (AUTO) 1.1 10^3/uL (0.0-1.0); MONOCYTES % (AUTO) 6.4 %; NEUTROPHILS # (AUTO) 14.8 10^3/uL (1.5-6.6); NEUTROPHILS % (AUTO) 89.9 %; PLT - PLATELET COUNT 247 10^3/uL (130-450); RED BLOOD COUNT 4.81 10^6/uL (4.20-5.40); RED CELL DISTRIBUTION WIDTH 14.6 % (12.0-15.0); WHITE BLOOD COUNT 16.5 x10^3/uL (4.8-10.8)
[2017-09-22] MEDS: methylPREDNISolone SUCCINATE 40 MG/ML VIAL IVP SCH ×3 (06:03→21:00)
[2017-09-22] MEDS: SODIUM CHLORIDE FLUSH 0.9% 10 ML SYRINGE IVP PRN (06:03)
[2017-09-22] MEDS: [UNRECOGNIZED DRUG - OTHER] PO SCH ×3 (06:03→21:00)
[2017-09-22] MEDS: IPRATROPIUM/ALBUTEROL 3 ML NEB INH SCH ×3 (08:19→20:48)
--- NOTE | 2017-09-22 08:59 | XRAY Report ---
Procedure Date: 09/22/2017 Accession Number: [id number] / [id number] Procedure: XR - Chest 1 View X-Ray CPT Code: 99060 FULL RESULT: EXAM: Chest 1 View X-Ray DATE: 09/22/2017 8:32 AM CLINICAL HISTORY: F/U thoracentesis COMPARISON: 09/21/2017, 09/20/2017 TECHNIQUE: Single view of the chest. FINDINGS: Lungs/Pleura: Stable right effusion and basilar airspace disease. The left lung remains clear. No pneumothorax. Mediastinum: Within exam limitations, cardiomediastinal contour is normal. Other: None. IMPRESSION: Stable right effusion and basilar airspace disease. RADIA
[2017-09-22] MEDS: CEFEPIME 2 GM in SODIUM CHLORIDE 0.9% MINIBAG 100 ML IV SCH ×2 (09:09→21:00)
[2017-09-22] MEDS: guaiFENesin 600 MG TABLET PO SCH ×2 (09:10→21:00)
[2017-09-22] MEDS: POTASSIUM CHLORIDE 20 MEQ TABLET PO SCH ×2 (09:10→16:08)
[2017-09-22] MEDS: POLYETHYLENE GLYCOL 3350 17 GM PACKET PO SCH (09:10)
[2017-09-22] MEDS: FAMOTIDINE 20 MG TABLET PO SCH (09:10)
[2017-09-22] MEDS: SODIUM CHLORIDE 1 GM TABLET PO SCH ×2 (09:52→21:00)
[2017-09-22] MEDS: levoFLOXacin 500 MG/100 ML 500 MG/100 ML BAG IV SCH (16:08)
--- NOTE | 2017-09-22 17:51 | PROVIDER PROGRESS NOTE ---
Subjective - Prog Note Date Prog Note Date: 09/22/17 Prog Note Time: 16:45 - Subjective Pt reports feeling: Improved Subjective: The patient says she is breathing much easier. She also states that she feels much stronger than she did even just yesterday. She denies any fever or chills , nausea or vomiting. She denies any chest pain. Current Medications - Current Medications Current Medications: Active Medications Generic Name Dose Route Start Last Admin Trade Name Freq PRN Reason Stop Dose Admin Acetaminophen/Butalbital/Caffeine 1 tab 09/20/17 21:38 09/22/17 16:08 Fioricet PO 1 tab Q4HR PRN Administration HEADACHE Hydrocodone Bitart/Acetaminophen 1 tab 09/19/17 14:54 09/22/17 16:08 [place] 5/325 PO 1 tab Q4HR PRN Administration Pain 5 to 7 Albuterol/Ipratropium 3 ml 09/20/17 22:00 09/22/17 15:28 Duoneb INH 3 ml TID RONNY Administration Famotidine 20 mg 09/20/17 09:00 09/22/17 09:10 Pepcid PO 20 mg DAILY RONNY Administration Guaifenesin 600 mg 09/19/17 21:00 09/22/17 09:10 Mucinex PO 600 mg BID RONNY Administration Cefepime HCl 2 gm/ Sodium 100 mls @ 200 mls/hr 09/19/17 20:00 09/22/17 09:57 Chloride IV Infused Q12H RONNY Infusion Levofloxacin 500 mg in 100 mls @ 100 mls/hr 09/20/17 17:00 09/22/17 17:15 Levaquin 500 Mg/100 Ml IV Infused DAILY@1700 RONNY Infusion Potassium Chloride/Dextrose/Sod Cl 1,000 mls @ 80 mls/hr 09/21/17 09:00 09/22 15:24 D5.45ns W/20 Meq Kcl IV 80 mls/hr .[id number] RONNY Administration Methylprednisolone 40 mg 09/20/17 17:26 09/22/17 13:49 Solu-Medrol (40mg Vial) IVP 40 mg TID RONNY Administration Nystatin 5 ml 09/22/17 21:00 Mycostatin PO QID RONNY Ondansetron HCl 4 mg 09/19/17 14:54 Zofran Inj IVP Q6HR PRN Nausea / Vomiting Dextroamp- 1 each 09/20/17 14:00 09/22/17 13:48 Amphetamine 5 Mg Tab PO 1 each TID RONNY Administration Polyethylene Glycol 17 gm 09/20/17 09:00 09/22/17 09:10 Miralax PO Not Given DAILY RONNY Potassium Chloride 20 meq 09/21/17 08:11 09/22/17 16:08 K-Dur PO 20 meq BIDWM RONNY Administration Saccharomyces Boulardii 250 mg 09/22/17 18:00 Florastor PO BIDWM RONNY Sodium Chloride 10 ml 09/19/17 14:54 09/22/17 06:03 Normal Saline Flush 0.9% IVP 10 ml PRN PRN Administration NEEDED PER PROVIDER ORDERS Sodium Chloride 10 ml 09/19/17 17:00 09/22/17 16:08 Normal Saline Flush 0.9% IVP 10 ml 0100,0900,1700 RONNY Administration Sodium Chloride 1 gm 09/22/17 09:00 09/22/17 09:52 Salt Tab PO 1 gm BID RONNY Administration Temazepam 15 mg 09/19/17 14:54 09/20/17 00:27 Restoril PO 15 mg QPM PRN Administration Insomnia Albuterol Sulf [Ventolin Hfa Inhaler] 1 - 2 puffs INH Q4HR PRN 09/19/17 Dextroamphetamine/Amphetamine [Dextroamp-Amphetamine 5 mg Tab] 5 mg PO TID 09/19 Furosemide [Furosemide] 40 mg PO DAILY 09/19/17 Objective - Vital Signs/Intake & Output Reviewed Vital Signs: Yes Vital Signs: Vital Signs x48h Temp Pulse Pulse Resp BP Pulse Ox 09/22/17 16:00 36.1 C L 96 22 126/79 93 09/22/17 15:28 94 18 Intake & Output: Intake & Output 09/19/17 09/20/17 09/21/17 09/22/17 23:59 23:59 23:59 23:59 Intake Total 940 1500 2330.000 1690 Output Total 625 2 576 Balance 315 1498 2330.000 1114 - Objective General Appearance: positive: No acute distress, Alert Eyes Bilateral: positive: Normal inspection, PERRL, EOMI, No lid inflammation, Conjunctivae nml, No scleral icterus ENT: positive: ENT inspection nml, Pharynx nml, No signs of dehydration Neck: positive: Nml inspection, Thyroid nml, No JVD, Trachea midline. negative : Thyromegaly Respiratory: positive: Chest non-tender, No respiratory distress, Breath sounds nml, Other (Lung sounds are diminished in all [place]. The patient is currently wearing oxygen at 2 L/min and her oxygen saturation is at 96%.). negative: Wheezes, Rales, Rhonchi Cardiovascular: positive: Regular rate & rhythm, No murmur, No gallop Abdomen: positive: Non-tender, No organomegaly, Nml bowel sounds, No distention. negative: Guarding, Rebound Back: positive: Nml inspection. negative: CVA tenderness (R), CVA tenderness (L ) Skin: positive: Color nml, No rash, Warm, Dry. negative: Cyanosis Extremities: positive: Non-tender, Full ROM, Nml appearance, No pedal edema Neurologic/Psychiatric: positive: Oriented x3, CN's nml (2-12), Motor nml, Sensation nml, Mood/affect nml - Lab Results Fish Bones: 09/22/17 04:40 09/22/17 04:40 Other Labs: Lab Results x24hrs 09/22/17 09/22/17 09/19/17 Range/Units 04:40 04:40 16:10 WBC 16.5 H (4.8-10.8) x10^3/uL RBC 4.81 (4.20-5.40) 10^6/uL Hgb 14.1 (12.0-16.0) g/dL Hct 43.4 (37.0-47.0) % MCV 90.2 (81.0-99.0) fL MCH 29.4 (27.0-31.0) pg MCHC 32.6 (32.0-36.0) g/dL RDW 14.6 (12.0-15.0) % Plt Count 247 (130-450) 10^3/uL MPV 8.4 (7.9-10.8) fL Neut # (Auto) 14.8 H (1.5-6.6) 10^3/uL Lymph # (Auto) 0.6 L (1.5-3.5) 10^3/uL [place] # (Auto) 1.1 H (0.0-1.0) 10^3/uL Eos # (Auto) 0.0 (0.0-0.7) 10^3/uL Baso # (Auto) 0.0 (0.0-0.1) 10^3/uL Absolute Nucleated RBC 0.01 x10^3/uL Nucleated RBC % 0.1 /100WBC Sodium 130 L (135-145) mmol/L Potassium 3.9 (3.5-5.0) mmol/L Chloride 87 L (101-111) mmol/L Carbon Dioxide 33 H (21-32) mmol/L Anion Gap 10.0 (6-13) BUN 44 H (6-20) mg/dL Creatinine 1.1 H (0.4-1.0) mg/dL Estimated GFR (MDRD) 50 L (>89) Glucose 182 H (70-100) mg/dL Calcium 8.7 (8.5-10.3) mg/dL Magnesium 2.3 (1.7-2.8) mg/dL Ref Lab Test Result REPORT 09/19/17 09/19/17 Range/Units 16:10 16:10 WBC (4.8-10.8) x10^3/uL RBC (4.20-5.40) 10^6/uL Hgb (12.0-16.0) g/dL Hct (37.0-47.0) % MCV (81.0-99.0) fL MCH (27.0-31.0) pg MCHC (32.0-36.0) g/dL RDW (12.0-15.0) % Plt Count (130-450) 10^3/uL MPV (7.9-10.8) fL Neut # (Auto) (1.5-6.6) 10^3/uL Lymph # (Auto) (1.5-3.5) 10^3/uL [place] # (Auto) (0.0-1.0) 10^3/uL Eos # (Auto) (0.0-0.7) 10^3/uL Baso # (Auto) (0.0-0.1) 10^3/uL Absolute Nucleated RBC x10^3/uL Nucleated RBC % /100WBC Sodium (135-145) mmol/L Potassium (3.5-5.0) mmol/L Chloride (101-111) mmol/L Carbon Dioxide (21-32) mmol/L Anion Gap (6-13) BUN (6-20) mg/dL Creatinine (0.4-1.0) mg/dL Estimated GFR (MDRD) (>89) Glucose (70-100) mg/dL Calcium (8.5-10.3) mg/dL Magnesium (1.7-2.8) mg/dL Ref Lab Test Result REPORT REPORT ABX Reporting Has patient been on IV antibiotics over the past 48 hours?: Yes Assessment/Plan - Problem List (1) Postobstructive pneumonia Impression: We are currently treating the patient with cefepime and we have seen a very slight improvement in her leukocyte count which has come down from 21,000 to 16, 500 today. She says she feels much better clinically, and says that she is no longer nearly as short of breath as she was when she first came in. She is also feeling more strength and her appetite is improving although it still not great. She says she slept well last night. I spoke with Dr. Shay at the [facility] today regarding a transfer and he feels that the patient should be treated for her pneumonia here and then should follow-up as an outpatient at [facility] for testing of the renal mass and lung. (2) Lung mass Impression: CT showed a constellation of symptoms worrisome for postobstructive pneumonia, Although no discrete lung mass was seen. Additionally there appears to be a left renal cell carcinoma seen on CT, suggesting that this could be metastasis. The plan was to transfer the patient to the [facility] for further testing and treatment options, however she will do this as an outpatient as the hospitalist at [facility] has refused transfer. (3) COPD (chronic obstructive pulmonary disease) Impression: At this time the patient is receiving steroids and bronchodilators and is showing improvement daily. We will continue present care. Qualifiers: COPD type: COPD with acute exacerbation Qualified Code(s): J44.1 - Chronic obstructive pulmonary disease with (acute) exacerbation
[2017-09-22] MEDS: SACCHAROMYCES BOULARDII 250 MG CAPSULE PO SCH (18:04)
[2017-09-22] MEDS: NYSTATIN 500000 UNITS/5 ML UDC PO SCH (21:00)
[2017-09-23] MEDS: SODIUM CHLORIDE FLUSH 0.9% 10 ML SYRINGE IVP SCH ×3 (02:35→15:53)
[2017-09-23 04:51] LABS: HGB - HEMOGLOBIN 14.2 g/dL (12.0-16.0); MEAN CORPUSCULAR HEMOGLOBIN 29.9 pg (27.0-31.0); MEAN CORPUSCULAR HGB CONC 32.9 g/dL (32.0-36.0); MEAN PLATELET VOLUME 8.3 fL (7.9-10.8); RED BLOOD COUNT 4.73 10^6/uL (4.20-5.40); RED CELL DISTRIBUTION WIDTH 14.8 % (12.0-15.0); WHITE BLOOD COUNT 17.8 x10^3/uL (4.8-10.8)
[2017-09-23 04:55] LABS: CALCIUM 8.7 mg/dL (8.5-10.3); CREATININE 1.1 mg/dL (0.4-1.0)
[2017-09-23] MEDS: D5.45NS W/20 MEQ KCL 1,000 ML IV SCH ×2 (05:20→21:32)
[2017-09-23] MEDS: SODIUM CHLORIDE FLUSH 0.9% 10 ML SYRINGE IVP PRN (05:20)
[2017-09-23] MEDS: methylPREDNISolone SUCCINATE 40 MG/ML VIAL IVP SCH ×3 (05:20→21:32)
[2017-09-23] MEDS: [UNRECOGNIZED DRUG - OTHER] PO SCH ×3 (05:21→21:32)
[2017-09-23] MEDS: IPRATROPIUM/ALBUTEROL 3 ML NEB INH SCH ×4 (07:32→21:58)
[2017-09-23] MEDS: CEFEPIME 2 GM in SODIUM CHLORIDE 0.9% MINIBAG 100 ML IV SCH ×2 (07:52→21:00)
[2017-09-23] MEDS: guaiFENesin 600 MG TABLET PO SCH ×2 (07:56→21:32)
[2017-09-23] MEDS: SODIUM CHLORIDE 1 GM TABLET PO SCH ×2 (07:56→21:32)
[2017-09-23] MEDS: FAMOTIDINE 20 MG TABLET PO SCH (07:57)
[2017-09-23] MEDS: NYSTATIN 500000 UNITS/5 ML UDC PO SCH ×4 (07:57→21:32)
[2017-09-23] MEDS: POLYETHYLENE GLYCOL 3350 17 GM PACKET PO SCH (07:57)
[2017-09-23] MEDS: SACCHAROMYCES BOULARDII 250 MG CAPSULE PO SCH ×2 (07:57→16:00)
[2017-09-23] MEDS: POTASSIUM CHLORIDE 20 MEQ TABLET PO SCH ×2 (07:57→16:00)
[2017-09-23] MEDS: HYDROcod/ACETAM 5/325 MG TABLET PO PRN ×4 (08:09→21:00)
--- NOTE | 2017-09-23 10:48 | XRAY Report ---
Procedure Date: 09/23/2017 Accession Number: [id number] / [id number] Procedure: XR - Chest 2 View X-Ray CPT Code: 45449 FULL RESULT: EXAM: CHEST RADIOGRAPHY EXAM DATE: 09/23/2017 10:30 AM. CLINICAL HISTORY: ? post obstructive pneumonia. COMPARISON: Chest radiograph dated 09/22/2017. TECHNIQUE: 2 views. FINDINGS: Lungs/Pleura: Moderate size right-sided pleural effusion redemonstrated and similar to the prior examination given differences in technique. Mediastinum: Heart and mediastinal contours are unremarkable. Other: None. IMPRESSION: Moderate size right-sided pleural effusion, similar in size to the prior examination given differences in technique. RADIA
[2017-09-23] MEDS: BUTALB/ACETAM/CAFF 50/325/40MG TABLET PO PRN ×2 (15:54→21:00)
[2017-09-23] MEDS: levoFLOXacin 500 MG/100 ML 500 MG/100 ML BAG IV SCH (16:01)
--- NOTE | 2017-09-23 17:43 | PROVIDER PROGRESS NOTE ---
Subjective - Prog Note Date Prog Note Date: 09/23/17 Prog Note Time: 17:00 - Subjective Pt reports feeling: Improved Subjective: The patient says that overall she feels better. She feels stronger most of the time and is able to ambulate easier today but does have periods where she feels very weak and requires assistance to even stand. Her shortness of breath is much improved over when she first came in but she is still not close to back to baseline. She denies any fevers or chills, chest pain, nausea or vomiting. Current Medications - Current Medications Current Medications: Active Medications Generic Name Dose Route Start Last Admin Trade Name Freq PRN Reason Stop Dose Admin Acetaminophen/Butalbital/Caffeine 1 tab 09/20/17 21:38 09/23/17 15:54 Fioricet PO 1 tab Q4HR PRN Administration HEADACHE Hydrocodone Bitart/Acetaminophen 1 tab 09/19/17 14:54 09/23/17 16:00 [place] 5/325 PO 1 tab Q4HR PRN Administration Pain 5 to 7 Albuterol/Ipratropium 3 ml 09/20/17 22:00 09/23/17 13:11 Duoneb INH 3 ml TID RONNY Administration Famotidine 20 mg 09/20/17 09:00 09/23/17 07:57 Pepcid PO 20 mg DAILY RONNY Administration Guaifenesin 600 mg 09/19/17 21:00 09/23/17 07:56 Mucinex PO 600 mg BID RONNY Administration Cefepime HCl 2 gm/ Sodium 100 mls @ 200 mls/hr 09/19/17 20:00 09/23/17 08:22 Chloride IV Infused Q12H RONNY Infusion Levofloxacin 500 mg in 100 mls @ 100 mls/hr 09/20/17 17:00 09/23/17 17:04 Levaquin 500 Mg/100 Ml IV Infused DAILY@1700 RONNY Infusion Potassium Chloride/Dextrose/Sod Cl 1,000 mls @ 80 mls/hr 09/21/17 09:00 09/23 14:00 D5.45ns W/20 Meq Kcl IV 80 mls/hr .[id number] RONNY Infusion Methylprednisolone 40 mg 09/20/17 17:26 09/23/17 14:00 Solu-Medrol (40mg Vial) IVP 40 mg TID RONNY Administration Nystatin 5 ml 09/22/17 21:00 09/23/17 16:00 Mycostatin PO 5 ml QID RONNY Administration Ondansetron HCl 4 mg 09/19/17 14:54 Zofran Inj IVP Q6HR PRN Nausea / Vomiting Dextroamp- 1 each 09/20/17 14:00 09/23/17 13:44 Amphetamine 5 Mg Tab PO 1 each TID RONNY Administration Polyethylene Glycol 17 gm 09/20/17 09:00 09/23/17 07:57 Miralax PO Not Given DAILY RONNY Potassium Chloride 20 meq 09/21/17 08:11 09/23/17 16:00 K-Dur PO 20 meq BIDWM RONNY Administration Saccharomyces Boulardii 250 mg 09/22/17 18:00 09/23/17 16:00 Florastor PO 250 mg BIDWM RONNY Administration Sodium Chloride 10 ml 09/19/17 14:54 09/23/17 05:20 Normal Saline Flush 0.9% IVP 10 ml PRN PRN Administration NEEDED PER PROVIDER ORDERS Sodium Chloride 10 ml 09/19/17 17:00 09/23/17 15:53 Normal Saline Flush 0.9% IVP 10 ml 0100,0900,1700 RONNY Administration Sodium Chloride 1 gm 09/22/17 09:00 09/23/17 07:56 Salt Tab PO 1 gm BID RONNY Administration Temazepam 15 mg 09/19/17 14:54 09/20/17 00:27 Restoril PO 15 mg QPM PRN Administration Insomnia Albuterol Sulf [Ventolin Hfa Inhaler] 1 - 2 puffs INH Q4HR PRN 09/19/17 Dextroamphetamine/Amphetamine [Dextroamp-Amphetamine 5 mg Tab] 5 mg PO TID 09/19 Furosemide [Furosemide] 40 mg PO DAILY 09/19/17 Objective - Vital Signs/Intake & Output Reviewed Vital Signs: Yes Vital Signs: Vital Signs x48h Temp Pulse Pulse Resp BP Pulse Ox 09/23/17 15:42 36.1 C L 103 H 22 127/83 H 93 09/23/17 14:08 36.5 C 112 H 20 133/83 H 94 09/23/17 13:12 111 H 22 Intake & Output: Intake & Output 09/20/17 09/21/17 09/22/17 09/23/17 23:59 23:59 23:59 23:59 Intake Total 1500 2330.000 2290 2943.333 Output Total 2 826 1200 Balance 1498 2330.000 1464 1743.333 - Objective General Appearance: positive: No acute distress, Alert Eyes Bilateral: positive: Normal inspection, PERRL, EOMI, No lid inflammation, Conjunctivae nml, No scleral icterus ENT: positive: ENT inspection nml, Pharynx nml, No signs of dehydration Neck: positive: Nml inspection, Thyroid nml, No JVD, Trachea midline. negative : Thyromegaly Respiratory: positive: Chest non-tender, No respiratory distress, Other (Lung sounds diminished on the right). negative: Wheezes, Rales, Rhonchi Cardiovascular: positive: Regular rate & rhythm, No murmur, No gallop Abdomen: positive: Non-tender, No organomegaly, Nml bowel sounds, No distention. negative: Guarding, Rebound Back: positive: Nml inspection. negative: CVA tenderness (R), CVA tenderness (L ) Skin: positive: Color nml, No rash, Warm, Dry. negative: Cyanosis Extremities: positive: Non-tender, Full ROM, Nml appearance, No pedal edema Neurologic/Psychiatric: positive: Oriented x3, CN's nml (2-12), Motor nml, Sensation nml, Mood/affect nml - Lab Results Fish Bones: 09/23/17 04:25 09/23/17 04:25 Other Labs: Lab Results x24hrs 09/23/17 09/23/17 Range/Units 04:25 04:25 WBC 17.8 H (4.8-10.8) x10^3/uL RBC 4.73 (4.20-5.40) 10^6/uL Hgb 14.2 (12.0-16.0) g/dL Hct 43.0 (37.0-47.0) % MCV 91.0 (81.0-99.0) fL MCH 29.9 (27.0-31.0) pg MCHC 32.9 (32.0-36.0) g/dL RDW 14.8 (12.0-15.0) % Plt Count 250 (130-450) 10^3/uL MPV 8.3 (7.9-10.8) fL Sodium 132 L (135-145) mmol/L Potassium 4.4 (3.5-5.0) mmol/L Chloride 93 L (101-111) mmol/L Carbon Dioxide 30 (21-32) mmol/L Anion Gap 9.0 (6-13) BUN 31 H (6-20) mg/dL Creatinine 1.1 H (0.4-1.0) mg/dL Estimated GFR (MDRD) 50 L (>89) Glucose 195 H (70-100) mg/dL Calcium 8.7 (8.5-10.3) mg/dL - Diagnostic Imaging Diagnostic Imaging Results: positive: Prelim report reviewed Diagnostic Imaging Comments: EXAM: CHEST RADIOGRAPHY EXAM DATE: 09/23/2017 10:30 AM. CLINICAL HISTORY: ? post obstructive pneumonia. COMPARISON: Chest radiograph dated 09/22/2017. TECHNIQUE: 2 views. FINDINGS: Lungs/Pleura: Moderate size right-sided pleural effusion redemonstrated and similar to the prior examination given differences in technique. Mediastinum: Heart and mediastinal contours are unremarkable. Other: None. IMPRESSION: Moderate size right-sided pleural effusion, similar in size to the prior examination given differences in technique. ABX Reporting Has patient been on IV antibiotics over the past 48 hours?: Yes Assessment/Plan - Problem List (1) Postobstructive pneumonia Impression: The patient is being treated with cefepime and although she had a significant decrease in her leukocyte count yesterday going from 21,000 down to 16.5 thousand, today she has gone back up to 17.8 thousand. Overall the patient feels weaker but still has periods where she is very weak and requires assistance with just standing. She is less short of breath today. Her cough is minimal and nonproductive. (2) Lung mass Impression: CT showed a constellation of symptoms worrisome for postobstructive pneumonia, Although no discrete lung mass was seen. Additionally there appears to be a left renal cell carcinoma seen on CT, suggesting that this could be metastasis. The plan was to transfer the patient to the [facility] for further testing and treatment options, however she will do this as an outpatient as the hospitalist at [facility] has refused transfer. (3) COPD (chronic obstructive pulmonary disease) Impression: At this time the patient is receiving steroids and bronchodilators and is showing improvement daily. We will continue present care. Qualifiers: COPD type: COPD with acute exacerbation Qualified Code(s): J44.1 - Chronic obstructive pulmonary disease with (acute) exacerbation
[2017-09-23] MEDS ORDERED: IPRATROPIUM/ALBUTEROL 3 ML NEB INH STA (21:50)
[2017-09-24] MEDS: SODIUM CHLORIDE FLUSH 0.9% 10 ML SYRINGE IVP SCH ×3 (00:13→15:30)
[2017-09-24] MEDS: HYDROcod/ACETAM 5/325 MG TABLET PO PRN ×4 (01:34→20:49)
[2017-09-24] MEDS: BUTALB/ACETAM/CAFF 50/325/40MG TABLET PO PRN (01:35)
[2017-09-24] MEDS ORDERED: IPRATROPIUM/ALBUTEROL 3 ML NEB INH SCH (03:29)
[2017-09-24] MEDS ORDERED: LORazepam 0.5 MG TABLET PO STA (04:02)
[2017-09-24] MEDS: methylPREDNISolone SUCCINATE 40 MG/ML VIAL IVP SCH ×3 (05:28→21:00)
[2017-09-24 05:48] LABS: HGB - HEMOGLOBIN 14.3 g/dL (12.0-16.0); MEAN CORPUSCULAR HEMOGLOBIN 29.6 pg (27.0-31.0); MEAN CORPUSCULAR VOLUME 92.5 fL (81.0-99.0); MEAN PLATELET VOLUME 8.4 fL (7.9-10.8); RED BLOOD COUNT 4.82 10^6/uL (4.20-5.40); RED CELL DISTRIBUTION WIDTH 15.2 % (12.0-15.0); WHITE BLOOD COUNT 20.6 x10^3/uL (4.8-10.8)
[2017-09-24 05:52] LABS: CALCIUM 8.5 mg/dL (8.5-10.3); CREATININE 0.9 mg/dL (0.4-1.0)
[2017-09-24] MEDS: [UNRECOGNIZED DRUG - OTHER] PO SCH ×3 (06:10→21:00)
[2017-09-24] MEDS: IPRATROPIUM/ALBUTEROL 3 ML NEB INH SCH ×3 (07:09→20:31)
[2017-09-24] MEDS: CEFEPIME 2 GM in SODIUM CHLORIDE 0.9% MINIBAG 100 ML IV SCH ×2 (08:48→20:48)
[2017-09-24] MEDS: POTASSIUM CHLORIDE 20 MEQ TABLET PO SCH ×2 (08:49→16:17)
[2017-09-24] MEDS: SODIUM CHLORIDE 1 GM TABLET PO SCH ×2 (08:50→20:49)
[2017-09-24] MEDS: NYSTATIN 500000 UNITS/5 ML UDC PO SCH ×4 (08:50→20:49)
[2017-09-24] MEDS: POLYETHYLENE GLYCOL 3350 17 GM PACKET PO SCH (08:50)
[2017-09-24] MEDS: guaiFENesin 600 MG TABLET PO SCH ×2 (08:50→20:49)
[2017-09-24] MEDS: FAMOTIDINE 20 MG TABLET PO SCH (08:50)
[2017-09-24] MEDS: SACCHAROMYCES BOULARDII 250 MG CAPSULE PO SCH ×2 (08:50→16:16)
[2017-09-24] MEDS: D5.45NS W/20 MEQ KCL 1,000 ML IV SCH (10:29)
[2017-09-24] MEDS: MORPHINE 2 MG/ML SYRINGE IVP PRN ×4 (11:50→20:48)
--- NOTE | 2017-09-24 12:21 | XRAY Report ---
Procedure Date: 09/24/2017 Accession Number: [id number] / [id number] Procedure: XR - Chest 1 View X-Ray CPT Code: 54467 FULL RESULT: EXAM: CHEST RADIOGRAPHY EXAM DATE: 09/24/2017 11:51 AM. CLINICAL HISTORY: Increased SOB. COMPARISON: CHEST 2 VIEW 09/23/2017. Single view chest 09/22/2017. TECHNIQUE: 1 view. FINDINGS: Lungs/Pleura: Moderate right basilar opacity and probable right pleural effusion, increased from 09/22/2017. No focal consolidation on the left or left pleural effusion. No pneumothorax. Mediastinum: The cardiac silhouette is partially obscured but there is no marked enlargement or definite change from prior. Other: None. IMPRESSION: Worsening right basilar opacity and probable pleural effusion. RADIA
[2017-09-24] MEDS: ALBUTEROL NEB 2.5 MG/3 ML INH PRN (16:11)
[2017-09-24] MEDS: levoFLOXacin 500 MG/100 ML 500 MG/100 ML BAG IV SCH (16:17)
--- NOTE | 2017-09-24 18:27 | PROVIDER PROGRESS NOTE ---
Assessment/Plan - Problem List (1) Postobstructive pneumonia Assessment/Plan: CXR shows a more dense infiltrate. I spoke to Transfer center, the MICU Web Site Admin who directed the case to [facility]. She was excepted intransfer to , will travel tomorrow. I discussed this plan with Pt and spoke to the at bedside and daughter from [place] by phone. (2) Pleural effusion on right Assessment/Plan: The fluid from the tap on day of admission shows "lymphoid malignant cells". Discussed with Pt, and daughter. Worsened pleural fluid by CXR today. I will order another thoracentesis by IR. (3) COPD exacerbation Assessment/Plan: Improved wheezing. Will decrease steroids which are causing anxiety. Continue nebs, O2. (4) PTSD (post-traumatic stress disorder) Assessment/Plan: Continue anxiety meds. (5) Adult ADHD Assessment/Plan: Continue Adderrall. - Current Meds Current Meds: Current Medications Generic Name Dose Route Start Last Admin Trade Name Freq PRN Reason Stop Dose Admin Acetaminophen/Butalbital/Caffeine 1 tab 09/20/17 21:38 09/24/17 01:35 Fioricet PO 1 tab Q4HR PRN Administration HEADACHE Hydrocodone Bitart/Acetaminophen 1 tab 09/19/17 14:54 09/24/17 16:16 [place] 5/325 PO 1 tab Q4HR PRN Administration Pain 5 to 7 Albuterol 2.5 mg 09/24/17 15:26 09/24/17 16:11 INH 2.5 mg RTQ4H PRN Administration Wheezing Albuterol/Ipratropium 3 ml 09/20/17 22:00 09/24/17 11:48 Duoneb INH 3 ml TID RONNY Administration Famotidine 20 mg 09/20/17 09:00 09/24/17 08:50 Pepcid PO 20 mg DAILY RONNY Administration Guaifenesin 600 mg 09/19/17 21:00 09/24/17 08:50 Mucinex PO 600 mg BID RONNY Administration Cefepime HCl 2 gm/ Sodium 100 mls @ 200 mls/hr 09/19/17 20:00 09/24/17 09:20 Chloride IV Infused Q12H RONNY Infusion Levofloxacin 500 mg in 100 mls @ 100 mls/hr 09/20/17 17:00 09/24/17 17:54 Levaquin 500 Mg/100 Ml IV Infused DAILY@1700 RONNY Infusion Methylprednisolone 40 mg 09/20/17 17:26 09/24/17 14:30 Solu-Medrol (40mg Vial) IVP 40 mg TID RONNY Administration Morphine Sulfate 2 mg 09/24/17 11:34 09/24/17 18:02 Morphine IVP 2 mg Q2H PRN Administration Dyspnea Nystatin 5 ml 09/22/17 21:00 09/24/17 16:17 Mycostatin PO 5 ml QID RONNY Administration Dextroamp- 1 each 09/20/17 14:00 09/24/17 11:03 Amphetamine 5 Mg Tab PO 1 each TID RONNY Administration Polyethylene Glycol 17 gm 09/20/17 09:00 09/24/17 08:50 Miralax PO Not Given DAILY RONNY Potassium Chloride 20 meq 09/21/17 08:11 09/24/17 16:17 K-Dur PO 20 meq BIDWM RONNY Administration Saccharomyces Boulardii 250 mg 09/22/17 18:00 09/24/17 16:16 Florastor PO 250 mg BIDWM RONNY Administration Sodium Chloride 10 ml 09/19/17 14:54 09/23/17 05:20 Normal Saline Flush 0.9% IVP 10 ml PRN PRN Administration NEEDED PER PROVIDER ORDERS Sodium Chloride 10 ml 09/19/17 17:00 09/24/17 15:30 Normal Saline Flush 0.9% IVP 10 ml 0100,0900,1700 RONNY Administration Sodium Chloride 1 gm 09/22/17 09:00 09/24/17 08:50 Salt Tab PO 1 gm BID RONNY Administration Temazepam 15 mg 09/19/17 14:54 09/20/17 00:27 Restoril PO 15 mg QPM PRN Administration Insomnia - Lab Result Fish Bone Diagrams: 09/24/17 05:25 09/24/17 05:25 - Additional Planning My Orders: My Active Orders 09/24/17 11:34 Morphine Inj [Morphine] 2 mg IVP Q2H PRN 09/24/17 15:26 Albuterol 2.5 mg INH RTQ4H PRN 09/24/17 15:27 Resp Teach Nebulizer/MDI [RC] .ONCE Subjective - Subjective Patient Reports: Shortness of Breath, Other (Pt feels worse, more nervous, gittery, panicky and SOB, needing more prn inhalers.) Objective Vital Signs: Vital Signs - 24 hr 09/23/17 09/23/17 09/24/17 21:59 23:38 03:37 Temperature 36.2 C L Heart Rate 113 H Heart Rate [ 105 H 117 H Brachial] Respiratory 16 20 30 H Rate Blood Pressure 155/97 H [Left Brachial artery] Blood Pressure 137/86 H [Right Brachial artery] O2 Saturation 93 93 09/24/17 09/24/17 09/24/17 03:38 05:31 06:40 Temperature 36.3 C L Heart Rate 94 Heart Rate [ 103 H Brachial] Respiratory 12 20 Rate Blood Pressure 133/80 H [Left Brachial artery] Blood Pressure [Right Brachial artery] O2 Saturation 94 92 09/24/17 09/24/17 09/24/17 07:11 07:25 11:51 Temperature 36.2 C L 36.4 C L Heart Rate 90 Heart Rate [ 96 119 H Brachial] Respiratory 16 20 24 Rate Blood Pressure 150/90 H [Left Brachial artery] Blood Pressure 113/77 [Right Brachial artery] O2 Saturation 95 96 09/24/17 09/24/17 09/24/17 12:03 16:04 16:20 Temperature 36.4 C L Heart Rate 124 H 96 Heart Rate [ 88 Brachial] Respiratory 26 H 20 22 Rate Blood Pressure [Left Brachial artery] Blood Pressure 156/91 H [Right Brachial artery] O2 Saturation 93 Oxygen O2 Source Nasal cannula I&O (Last 24 Hrs): Intake and Output Totals x24h 09/22/17 09/23/17 09/24/17 23:59 23:59 23:59 Intake Total 2290 3840.000 1576.333 Output Total 826 1451 1200 Balance 1464 2389.000 376.333 General: Alert, Oriented x3, Mild distress HEENT: Mucous membr. moist/pink Neck: Supple, No JVD Neuro: Non Focal Cardiovascular: Regular rate, No murmurs Respiratory: Other (R diminished, L clear) Abdomen: Soft, No tenderness Extremities: No edema - Results Results: Laboratory Results Specimen Type PLUERAL FLUID SLIDE 09/19/17 16:10 WBC 20.6 x10^3/uL (4.8-10.8) H 09/24/17 05:25 RBC 4.82 10^6/uL (4.20-5.40) 09/24/17 05:25 Hgb 14.3 g/dL (12.0-16.0) 09/24/17 05:25 Hct 44.5 % (37.0-47.0) 09/24/17 05:25 MCV 92.5 fL (81.0-99.0) 09/24/17 05:25 MCH 29.6 pg (27.0-31.0) 09/24/17 05:25 MCHC 32.0 g/dL (32.0-36.0) 09/24/17 05:25 RDW 15.2 % (12.0-15.0) H 09/24/17 05:25 Plt Count 272 10^3/uL (130-450) 09/24/17 05:25 MPV 8.4 fL (7.9-10.8) 09/24/17 05:25 Neut # (Auto) 14.8 10^3/uL (1.5-6.6) H 09/22/17 04:40 Lymph # (Auto) 0.6 10^3/uL (1.5-3.5) L 09/22/17 04:40 Bradford # (Auto) 1.1 10^3/uL (0.0-1.0) H 09/22/17 04:40 Eos # (Auto) 0.0 10^3/uL (0.0-0.7) 09/22/17 04:40 Baso # (Auto) 0.0 10^3/uL (0.0-0.1) 09/22/17 04:40 Absolute Nucleated RBC 0.01 x10^3/uL 09/22/17 04:40 Total Counted 100 09/21/17 04:55 Band Neuts % (Manual) 1 % (0-10) 09/21/17 04:55 Abnorm Lymph % (Manual) 0 % 09/21/17 04:55 Nucleated RBC % 0.1 /100WBC 09/22/17 04:40 Neutrophils # (Manual) 17.3 10^3/uL (1.5-6.6) H 09/21/17 04:55 Lymphocytes # (Manual) 1.0 10^3/uL (1.5-3.5) L 09/21/17 04:55 Monocytes # (Manual) 2.3 10^3/uL (0.0-1.0) H 09/21/17 04:55 Eosinophils # (Manual) 0.0 10^3/uL (0-0.7) 09/21/17 04:55 Basophils # (Manual) 0.0 10^3/uL (0-0.1) 09/21/17 04:55 Differential Comment MANUAL DIFFERENTIAL 09/21/17 04:55 Manual Slide Review Indicated 09/20/17 09:19 Pathologist Review SEE SEPARATE REPORT 09/19/17 16:10 WBC Morphology (NORMAL) 09/20/17 09:19 Platelet Estimate NORMAL (130-450,000) (NORMAL) 09/21/17 04:55 Platelet Morphology RARE LARGE PLATELETS (NORMAL) 09/20/17 09:19 RBC Morph Micro Appear NORMAL APPEARANCE (NORMAL) 09/21/17 04:55 Bld Gas Analysis Time 1318 09/19/17 13:12 Sample Site LEFT RADIAL 09/19/17 13:12 ABG pH 7.49 (7.35-7.45) H 09/19/17 13:12 ABG pCO2 58 mmHg (34-45) H 09/19/17 13:12 ABG pO2 64 mmHg (80-100) L 09/19/17 13:12 ABG HCO3 43.5 mmol/L (22.0-26.0) H 09/19/17 13:12 ABG Total CO2 45.3 MMOL/L (21.0-29.0) H* 09/19/17 13:12 ABG O2 Saturation 94 % (94-98) 09/19/17 13:12 ABG Oximetry Spot Check 91 % 09/19/17 13:12 ABG Base Excess 16.5 mmol/L (-2.0-3.0) H 09/19/17 13:12 Rickey Test NEGATIVE 09/19/17 13:12 O2 Delivery Device NASAL CANNULA 09/19/17 13:12 O2 Liters/Min 5.00 LPM 09/19/17 13:12 Sodium 132 mmol/L (135-145) L 09/24/17 05:25 Potassium 4.9 mmol/L (3.5-5.0) 09/24/17 05:25 Chloride 97 mmol/L (101-111) L 09/24/17 05:25 Carbon Dioxide 28 mmol/L (21-32) 09/24/17 05:25 Anion Gap 7.0 (6-13) 09/24/17 05:25 BUN 28 mg/dL (6-20) H 09/24/17 05:25 Creatinine 0.9 mg/dL (0.4-1.0) 09/24/17 05:25 Estimated GFR (MDRD) 63 (>89) L 09/24/17 05:25 Glucose 204 mg/dL (70-100) H 09/24/17 05:25 Lactic Acid 1.9 mmol/L (0.5-2.2) 09/19/17 19:46 Calcium 8.5 mg/dL (8.5-10.3) 09/24/17 05:25 Magnesium 2.3 mg/dL (1.7-2.8) 09/22/17 04:40 Total Bilirubin 1.3 mg/dL (0.2-1.0) H 09/19/17 12:37 AST 44 IU/L (10-42) H 09/19/17 12:37 ALT 59 IU/L (10-60) 09/19/17 12:37 Alkaline Phosphatase 128 IU/L (42-121) H 09/19/17 12:37 Troponin I < 0.04 ng/mL (<0.49) 09/19/17 12:37 B-Natriuretic Peptide 62 pg/mL (5-100) 09/24/17 05:25 Total Protein 7.5 g/dL (6.7-8.2) 09/19/17 12:37 Albumin 3.6 g/dL (3.2-5.5) 09/19/17 12:37 Globulin 3.9 g/dL (2.1-4.2) 09/19/17 12:37 Albumin/Globulin Ratio 0.9 (1.0-2.2) L 09/19/17 12:37 Lipase 36 U/L (22-51) 09/19/17 12:37 Urine Color YELLOW 09/19/17 17:48 Urine Clarity CLEAR (CLEAR) 09/19/17 17:48 Urine pH 5.5 PH (5.0-7.5) 09/19/17 17:48 Ur Specific Boaz 1.025 (1.002-1.030) 09/19/17 17:48 Urine Protein NEGATIVE mg/dL (NEGATIVE) 09/19/17 17:48 Urine Glucose (UA) NEGATIVE mg/dL (NEGATIVE) 09/19/17 17:48 Urine Ketones NEGATIVE mg/dL (NEGATIVE) 09/19/17 17:48 Urine Occult Blood NEGATIVE (NEGATIVE) 09/19/17 17:48 Urine Nitrite NEGATIVE (NEGATIVE) 09/19/17 17:48 Urine Bilirubin SMALL (NEGATIVE) H 09/19/17 17:48 Urine Urobilinogen 0.2 (NORMAL) E.U./dL (NORMAL) 09/19/17 17:48 Ur Leukocyte Esterase NEGATIVE (NEGATIVE) 09/19/17 17:48 Ur Microscopic Review NOT INDICATED 09/19/17 17:48 Urine Culture Comments NOT INDICATED 09/19/17 17:48 Fluid Source PLEURAL 09/19/17 16:10 Fluid Color RED 09/19/17 16:10 Fluid Clarity HAZY 09/19/17 16:10 Fluid WBC 1340 /mm^3 09/19/17 16:10 Fluid RBC 10190 /mm^3 09/19/17 16:10 Fluid Neutrophils % 3 % 09/19/17 16:10 Fluid Lymphocytes % 47 09/19/17 16:10 Fluid Macrophages % 7 % 09/19/17 16:10 Fld Mesothelial Cell % 5 % 09/19/17 16:10 Fluid Other Cells % 38 % 09/19/17 16:10 Slides for Path Review PATH SLIDE REVIEW 09/19/17 16:10 Ref Lab Test Result REPORT 09/19/17 16:10 ABX Reporting Has patient been on IV antibiotics over the past 48 hours?: Yes
[2017-09-25] MEDS: SODIUM CHLORIDE FLUSH 0.9% 10 ML SYRINGE IVP SCH ×3 (00:40→11:29)
[2017-09-25] MEDS: MORPHINE 2 MG/ML SYRINGE IVP PRN ×6 (00:45→14:34)
[2017-09-25] MEDS: SODIUM CHLORIDE FLUSH 0.9% 10 ML SYRINGE IVP PRN ×2 (02:32→14:34)
[2017-09-25] MEDS: ALBUTEROL NEB 2.5 MG/3 ML INH PRN (02:39)
[2017-09-25] MEDS ORDERED: IPRATROPIUM/ALBUTEROL 3 ML NEB INH STA (04:46)
[2017-09-25] MEDS ORDERED: FUROSEMIDE 40 MG/4 ML VIAL IVP STA (04:47)
[2017-09-25] MEDS ORDERED: LEVALBUTEROL 1.25 MG/3 ML NEB INH STA (04:48)
[2017-09-25] MEDS ORDERED: VANCOMYCIN PER PHARMACY 100 GM in SODIUM CHLORIDE 0.9% 250 ML IV SCH (05:00)
[2017-09-25] MEDS ORDERED: SODIUM CHLORIDE FLUSH 0.9% 10 ML SYRINGE ONE (05:09)
[2017-09-25] MEDS: [UNRECOGNIZED DRUG - OTHER] PO SCH ×2 (05:24→07:53)
[2017-09-25] MEDS: methylPREDNISolone SUCCINATE 40 MG/ML VIAL IVP SCH (05:24)
[2017-09-25] MEDS: CLINDAMYCIN 900 MG/50 ML 50 ML IV SCH ×2 (05:28→13:32)
[2017-09-25] MEDS ORDERED: VANCOMYCIN 2 GM/NS 500 ML 2 GM/500 ML BAG IV SCH (06:00)
[2017-09-25 06:19] LABS: ABG BASE EXCESS 0.3 mmol/L (-2.0-3.0); ABG HCO3 30.4 mmol/L (22.0-26.0); ABG OXYGEN SATURATION 96 % (94-98); ABG PH 7.23 (7.35-7.45); ABG PO2 91 mmHg (80-100); ABG TCO2 32.7 MMOL/L (21.0-29.0); ALLEN TEST POSITIVE
[2017-09-25 06:25] LABS: ABG PCO2 75 mmHg (34-45)
[2017-09-25] MEDS ORDERED: PANTOPRAZOLE 40 MG VIAL IVP SCH (07:00)
[2017-09-25 07:27] LABS: HGB - HEMOGLOBIN 14.8 g/dL (12.0-16.0); MEAN CORPUSCULAR HEMOGLOBIN 29.7 pg (27.0-31.0); MEAN CORPUSCULAR HGB CONC 32.2 g/dL (32.0-36.0); MEAN CORPUSCULAR VOLUME 92.1 fL (81.0-99.0); MEAN PLATELET VOLUME 8.2 fL (7.9-10.8); RED CELL DISTRIBUTION WIDTH 15.1 % (12.0-15.0); WHITE BLOOD COUNT 30.4 x10^3/uL (4.8-10.8)
[2017-09-25 07:33] LABS: CALCIUM 9.3 mg/dL (8.5-10.3); CREATININE 1.1 mg/dL (0.4-1.0)
[2017-09-25] MEDS: IPRATROPIUM/ALBUTEROL 3 ML NEB INH SCH (07:55)
[2017-09-25] MEDS ORDERED: VANCOMYCIN INJ 2 GM in SODIUM CHLORIDE 0.9% 500 ML IV SCH (08:00)
[2017-09-25] MEDS ORDERED: LEVALBUTEROL 1.25 MG/3 ML NEB INH PRN (08:43)
[2017-09-25] MEDS ORDERED: diltiaZEM INJ 5 MG/ML VIAL IVP ONE (08:49)
[2017-09-25] MEDS ORDERED: CHLORHEXIDINE GLUCONATE 15 ML UDC PO SCH (09:00)
[2017-09-25] MEDS: CEFEPIME 2 GM in SODIUM CHLORIDE 0.9% MINIBAG 100 ML IV SCH (09:02)
[2017-09-25] MEDS: POTASSIUM CHLORIDE 20 MEQ TABLET PO SCH (09:03)
[2017-09-25] MEDS: POLYETHYLENE GLYCOL 3350 17 GM PACKET PO SCH (09:03)
[2017-09-25] MEDS: NYSTATIN 500000 UNITS/5 ML UDC PO SCH ×2 (09:06→13:35)
[2017-09-25] MEDS: SACCHAROMYCES BOULARDII 250 MG CAPSULE PO SCH (09:14)
[2017-09-25] MEDS: FAMOTIDINE 20 MG TABLET PO SCH (09:14)
[2017-09-25] MEDS: SODIUM CHLORIDE 1 GM TABLET PO SCH (09:14)
[2017-09-25] MEDS: guaiFENesin 600 MG TABLET PO SCH (09:15)
--- NOTE | 2017-09-25 12:36 | Ultrasound Report ---
REVISED: THIS REPORT WAS ORIGINALLY SIGNED ON 09/25/2017 @ 1237. EXAM DATE OF SERVICE REVISED ON 10/16/2017. Procedure Date: 09/25/2017 Accession Number: [id number] / [id number] Procedure: US - Thoracentesis Puncture CPT Code: FULL RESULT: EXAM: Thoracentesis Puncture DATE: 09/25/2017 12:21 PM CLINICAL HISTORY: Worse SOB and larger pleural effusion. Informed consent was obtained from the patient's daughter. A suitable site on the patient's right posterior thorax was identified with ultrasound. The skin was prepped and draped in the usual sterile fashion. The skin and soft tissues were anesthetized with buffered lidocaine. A safety centesis catheter was inserted into the right pleural space, and approximately 1800 mL of fluid was removed without difficulty. The patient tolerated the procedure well. No immediate complications. IMPRESSION: Successful ultrasound-guided right thoracentesis. DIANA
[2017-09-25] MEDS ORDERED: LEVALBUTEROL 1.25 MG/3 ML NEB INH SCH (13:00)
[2017-09-25] MEDS ORDERED: HALOPERIDOL 5 MG/ML VIAL IVP ONE (14:32)
[2017-09-25 15:17] VITALS: BP 131/69
--- NOTE | 2017-09-25 15:21 | Discharge Plan ---
Discharge Plan Disposition: 02 Transfer Acute Care Hosp Condition: Serious No Smoking: If you smoke, Please STOP! Call for help.
[2017-09-25] MEDS ORDERED: BUFFERED LIDOCAINE 10 ML SYRINGE IU ONE (16:30)
[2017-09-26] MEDS ORDERED: methylPREDNISolone SUCCINATE 40 MG/ML VIAL IVP SCH (09:00)
--- NOTE | 2017-10-03 01:39 | DISCHARGE SUMMARY ---
Physician: Shae Bustamante MD DATE OF ADMISSION: 09/19/2017 DATE OF DISCHARGE: 09/25/2017 HISTORY OF PRESENT ILLNESS: This is a 66-year-old white female with a history of PTSD and adult ADHD, previously on Adderall that was then tapered to off. She had a recent admission here 1 month ago, for dyspnea, wheezing and a community-acquired pneumonia and LV diastolic dysfunction found on Echo. She was discharged home with a course of antibiotics , Medrol Dosepak, Lasix 40 mg daily, and a new oxygen order at 2 L nasal cannula 17/10. On that admission, her Adderall was also restarted. The patient presented, after 3 weeks at home from the last admission, with rapidly worsening shortness of breath and wheezing once again. She was found to have a worsened infiltrate in the same location as well as a pleural effusion on chest imaging and was admitted for management of severe respiratory distress. From the ER, she went to Interventional Radiology and had 2 L of straw-colored fluid removed and then was admitted for management. HOSPITAL COURSE AND DISCHARGE DIAGNOSES 1. Postobstructive pneumonia. The patient was put on empiric iv Cefepime and Levofloxacin for what was initially thought to be healthcare-acquired pneumonia, given her recent discharge. Closer evaluation with imaging of the chest, by chest CT on 09/20/2017, showed "continued moderately large right pleural effusion and moderate narrowing of the right bronchus intermedius with peripheral reticular nodular infiltrates involving the apical and anterior segments of the right upper lobe, and also complete atelectasis of the right lower lobe, complete consolidation of the right middle lobe extending to the right hilum, extensive right hilar adenopathy, multiple moderately enlarged mediastinal lymph nodes." The top of the abdomen was also seen and this showed a mass, which was read as a "probable left renal cell carcinoma". The patient initially improved after the thoracentesis but several days later had worsening shortness of breath. A chest x-ray showed even a larger reaccumulation of the pleural effusion. She underwent another thoracentesis and I requested transfer, and she was accepted to [facility] and was transferred via [facility] ambulance on 2017. 2. Malignant pleural effusion. The patient's first thoracentesis yielded 2 L of fluid that was sent for evaluation and showed no aerobic or anaerobic growth on culture, a few white blood cells and red blood cells, pH was 7.0, LDH was 551, glucose was 147 , and protein was 3.4 (consistent with a nonbacterial effusion). The pathology report was available on the day of transfer, and this was read as having "atypical lymphoid appearing cells suggestive of a lymphoid neoplasm. Recommend flow cytometry on the pleural effusion or a fine needle aspiration of any enlarged lymph nodes." The patient required that second thoracentesis because of significant respiratory distress, which was done on the day of transfer and 2.2 L of yellow hazy fluid was again removed, with only minimal improvement in respiratory status. The patient required a transfer for higher level of care for Oncology recommendations, and Pulmonary consultation. 3. Chronic obstructive pulmonary disease. The patient required nebulizers, Mucinex, and was started on IV steroids. Steroids gave her anxiety and the Solu-Medrol 125 mg dose was decreased to 40 mg at the time of transfer. 4. Posttraumatic stress disorder. The patient reacted with anxiety when she was dyspneic and required one dose of Haldol during her hospital stay. 5. Adult attention deficit hyperactivity disorder. The patient was continued on her Adderall 5 mg t.i.d. dose while here. LABORATORY AND IMAGING: Reviewed and summarized above. ALLERGIES 1. AVOCADO. 2. FEATHERS. 3. PEACHES. 4. PENICILLIN. MEDICATIONS AT THE TIME OF TRANSFER 1. Clindamycin 900 mg, which was added on the last 2 days. 2. Morphine p.r.n. dyspnea. 3. Dexter p.r.n. pain. 4. Zofran p.r.n. nausea. 5. Restoril p.r.n. insomnia. 6. DuoNeb inhaler q.i.d. p.r.n. 7. Lorazepam p.r.n. anxiety. 8. Solu-Medrol 40 mg b.i.d. IV. 9. Cefepime 2 grams IV q.12 hours. 10. Levofloxacin 500 mg IV daily. 11. Mucinex 600 mg b.i.d. 12. Pepcid 20 mg daily. 13. MiraLAX daily. 14. Potassium 40 mEq daily. 15. DuoNeb inhaler t.i.d., which was changed to Xopenex inhaler t.i.d. because of tachycardia. 16. Nystatin 5 mL p.o. q.i.d. 17. Albuterol inhaler q.4 hours p.r.n. wheezing. 18. Lasix 40 mg IV x1. 19. Vancomycin 100 grams IV daily. 20. Protonix 40 mg IV daily. 21. Diltiazem 5 mg IV x1 for tachycardia. 22. Haldol 1 mg IV x1 for anxiety. CONDITION AT DISCHARGE: Serious. PHYSICAL EXAMINATION AT DISCHARGE VITAL SIGNS: Blood pressure 130/70, heart rate 116-120 in sinus tachycardia, afebrile, saturation 94% on a 10 L Oxymizer. HEENT: Revealed a fatigued-appearing white female with increased respiratory rate of 20-26. Oral mucosa was moist. NECK: Without JVD or carotid bruits. CHEST: Diminished breath sounds in the entire right side. The left side was clear without wheezing or rales. HEART: Heart sounds normal, but distant. ABDOMEN: Obese with a pannus. Nontender. EXTREMITIES: No clubbing, cyanosis, or edema. NEUROLOGIC: Intact. FOLLOWUP: This will be determined after her stay at [facility]. CODE STATUS: DNR. Time required to complete this entire dictation, chart review, contact with Transfer Center on 5 separate occasions with reports given: 90 minutes. cc: KRISTAN Syed TD: 10/02/2017 22:51 [email or web address]
== END 2017-09-25 15:32 | disposition short-term general hospital (02) | DRG 686 ==
LOC: ED 11:54 → MS3 14:54
PROVIDERS: ADMIT Internal Medicine; ATTEND Internal Medicine
PROC: 0W993ZZ Drainage of Right Pleural Cavity, Percutaneous Approach (ICD-10-PCS; principal; 2017-09-19)
PROC: 0W993ZZ Drainage of Right Pleural Cavity, Percutaneous Approach (ICD-10-PCS; 2017-09-25)
DX: J90 Pleural effusion, not elsewhere classified (principal); J96.21 Acute and chronic respiratory failure with hypoxia; E86.0 Dehydration; I50.9 Heart failure, unspecified; J44.9 Chronic obstructive pulmonary disease, unspecified; Z87.891 Personal history of nicotine dependence; C64.2 Malignant neoplasm of left kidney, except renal pelvis; Z87.01 Personal history of pneumonia (recurrent); J18.1 Lobar pneumonia, unspecified organism; J91.0 Malignant pleural effusion; J44.1 Chronic obstructive pulmonary disease with (acute) exacerbation; J44.0 Chronic obstructive pulmonary disease with (acute) lower respiratory infection; E87.1 Hypo-osmolality and hyponatremia; I51.89 Other ill-defined heart diseases; E87.6 Hypokalemia; Y95 Nosocomial condition; F17.210 Nicotine dependence, cigarettes, uncomplicated; F43.10 Post-traumatic stress disorder, unspecified; F90.9 Attention-deficit hyperactivity disorder, unspecified type; F41.9 Anxiety disorder, unspecified; T38.0X5A Adverse effect of glucocorticoids and synthetic analogues, initial encounter; Y92.230 Patient room in hospital as the place of occurrence of the external cause; G47.00 Insomnia, unspecified; Z88.0 Allergy status to penicillin; Z66 Do not resuscitate; Z79.899 Other long term (current) drug therapy; Z99.81 Dependence on supplemental oxygen
CPT/HCPCS: 32554; 32555; 36415; 36600; 71045; 71046; 71260; 80048; 80053; 81001; 81003; 81599; 82803; 83605; 83690; 83735; 83880; 84484; 85025; 85027; 87040; 87070; 87086; 87205; 89051; 93005; 94640; 94660; 96361; 96374; 99284